=== PATIENT | male | born 1960 | race Caucasian/White ===

== ENCOUNTER → 2018-05-05 15:48 | Outpatient (CLI) | payer BC, SELFPAY ==
[2018-05-05 18:08] LABS: Prostate Specific Ag Screen 1.3 ng/mL (0.0-4.0)
== END ==
PROVIDERS: PCP Internal Medicine Adolescent Medicine; Visit Provider Urology
DX: Z12.5 Encounter for screening for malignant neoplasm of prostate (principal); N40.0 Benign prostatic hyperplasia without lower urinary tract symptoms
CPT/HCPCS: 36415; G0103

== ENCOUNTER → 2019-05-18 13:58 | Outpatient (CLI) | payer BC, SELFPAY ==
[2019-05-18 16:01] LABS: Prostate Specific Ag Screen 3.5 ng/mL (0.0-4.0)
== END ==
PROVIDERS: Visit Provider Urology
DX: Z12.5 Encounter for screening for malignant neoplasm of prostate (principal); N40.0 Benign prostatic hyperplasia without lower urinary tract symptoms
CPT/HCPCS: 36415; G0103

== ENCOUNTER → 2020-03-09 10:43 | Outpatient (CLI) | payer BC, SELFPAY ==
[2020-03-10 12:38] LABS: Covid-19 Nasal PCR Sendout Lex Positive
== END ==
PROVIDERS: Visit Provider Internal Medicine Adolescent Medicine
DX: U07.1 COVID-19 (principal)
CPT/HCPCS: U0004

== ENCOUNTER → 2020-05-15 16:06 | Outpatient (CLI) | payer BC, SELFPAY ==
[2020-05-15 17:59] LABS: Prostate Specific Ag Screen 1.5 ng/ml (0.0-4.0)
== END ==
PROVIDERS: Visit Provider Urology
DX: N40.0 Benign prostatic hyperplasia without lower urinary tract symptoms (principal)
CPT/HCPCS: 36415; G0103

== ENCOUNTER → 2021-05-22 10:11 | Outpatient (CLI) | payer BC, SELFPAY ==
[2021-05-22 11:44] LABS: Prostate Specific Ag, Diagnost 1.17 ng/ml (0.0-4.0)
== END ==
PROVIDERS: Visit Provider Urology
DX: N40.1 Benign prostatic hyperplasia with lower urinary tract symptoms (principal)
CPT/HCPCS: 36415; 84153

== ENCOUNTER → 2021-05-29 14:16 | Outpatient (POV) | payer BC, SELFPAY | PROVIDERS: Visit Provider Dermatology | DX: Z00.00 Encounter for general adult medical examination without abnormal findings (principal) ==

== ENCOUNTER 2022-10-30 19:26 | Emergency (ER) | payer BC, SELFPAY ==
[2022-10-30 19:27] VITALS: BP 135/87; PULSE 109; RESP 18; TEMP 37.8; O2SAT 97; BMI 24.7
[2022-10-30 19:34] VITALS: BMI 24.7
--- NOTE | 2022-10-30 19:36 | XR_ITS ---
PROCEDURE INFORMATION: Exam: XR Chest Exam date and time: 10/30/2022 7:46 PM Age: 62 years old Clinical indication: Cough TECHNIQUE: Imaging protocol: Radiologic exam of the chest. Views: 2 views. COMPARISON: CR CXR CHEST(2 VIEWS-NOT PORTABLE) 02/06/2017 5:23 AM FINDINGS: Lungs: Low lung volumes. No gross pulmonary infiltrates or edema pattern. Mild bandlike atelectasis in the lung bases is felt to be commensurate with the degree of pulmonary expansion. Question mild peribronchial thickening which may relate to bronchitis. Pleural spaces: No pleural effusion. No pneumothorax. Heart/Mediastinum: Heart size normal. No tracheal/mediastinal shift. Vasculature: Central vascular crowding related to expiratory technique. Bones/joints: No acute osseous abnormalities are identified. IMPRESSION: 1. Low lung volumes/expiratory technique with central vascular crowding and basilar atelectasis but no gross pulmonary infiltrates. 2. Question mild peribronchial thickening suggesting bronchitis.
[2022-10-30 19:47] LABS: Coronavirus 19, PCR Not Detected (NotDetected); Influenza A, PCR Not Detected (NotDetected); Influenza B, PCR Not Detected (NotDetected)
[2022-10-30 20:03] LABS: Basophils # 0.1 K/mm3 (0-0.2); Eosinophils % 0.2 % (0.1-12.0); Hematocrit 46.9 % (42.0-52.0); Hemoglobin 15.8 g/dL (14.1-18.0); Lymphocytes # 2.8 K/mm3 (0.7-4.5); Lymphocytes % 21.3 % (10-50); Mean Corpuscular HGB Conc 33.7 g/dL (31.8-35.4); Mean Corpuscular Hemoglobin 30.2 pg (27.0-31.2); Mean Corpuscular Volume 89.6 fl (80-94); Mean Platelet Volume 9.1 fl (7.4-10.4); Monocytes # 0.8 K/mm3 (0.1-1.0); Monocytes % 5.9 % (1.7-9.3); Neutrophils # 9.4 K/mm3 (1.8-7.8); Neutrophils % 71.6 % (37.0-80.0); Platelet Count 239 K/mm3 (142-424); Red Blood Count 5.24 M/mm3 (4.60-6.20); Red Cell Distribution Width 12.7 % (11.5-17.5); White Blood Count 13.2 K/mm3 (4.8-10.8)
--- NOTE | 2022-10-30 20:03 | HMH.EDGENADL ---
Discharge Plan Disposition Patient Disposition: Home, Self-Care Condition: Fair Prescriptions Prescriptions: New azithromycin [Zithromax Z-Rai] 250 mg tablet 250 mg PO DAILY 4 Days Qty: 4 0RF Rx Instructions: start on day 2 of therapy No Action buspirone 5 mg tablet 5 mg PO BID mirtazapine 15 mg tablet 15 mg PO DAILY sildenafil 50 MG tablet 50 mg PO NEEDED PRN (Reason: ED) Qty: 30 5RF Rx Instructions: 1 po 30 min prior to intercourse on an empty stomach. Referrals Follow up/Referrals: Antonio Blood MD [Primary Care Provider] - See instructions Clinical Impressions Clinical Impression: Pneumonia Instructions Patient Instructions: Pneumonia-Adult Print Language Print Language: [place]de[place] Discharge ED Provider: Amol Marcum General Adult HPI General Chief complaint: Upper Respiratory Infection Stated complaint: cough,chills, vomit Time Seen by Provider: 10/30/22 21:12 Mode of Arrival: Ambulatory Source of Information: Patient Limitations: No Limitations Description of Symptoms (Recalled from ER Triage Doc. by RN): 62 M present swith 1 week of flu like symptoms. He was seen by his PCP on Friday, prescribed cough medication, but is unable to keep this down because of his nausea and vomiting. Patient is hurting all over, and reports subjective fevers. History of Present Illness HPI narrative: Patient presents to the emergency department with cough, congestion, body aches, chills, sore throat and generalized malaise since Friday. The patient states that he has had significant cough and congestion. Denies any significant shortness of breath with ambulation. The patient denies any sick contacts. He was seen by his primary care physician on Friday and prescribed cough medicine but is having posttussive emesis. Does describe subjective fever. Related Data Home Medications Medication Instructions Recorded Confirmed buspirone 5 mg tablet 5 mg PO BID 05/05/18 05/22/21 mirtazapine 15 mg tablet 15 mg PO DAILY 05/05/18 05/22/21 Previous Rx's Medication Instructions Recorded sildenafil 50 mg tablet 50 mg PO NEEDED PRN ED #30 tabs 05/22/21 azithromycin 250 mg tablet 250 mg PO DAILY 4 days #4 tabs 10/30/22 (Zithromax Z-Rai) Allergies Allergy/AdvReac Type Severity Reaction Status Date / Time ciprofloxacin [From CIPRO] Allergy Mild Verified 05/22/21 09:26 prednisone [PREDNISONE] Allergy Mild Verified 05/22/21 09:26 sulfamethoxazole Allergy Unknown Verified 05/22/21 09:26 [From BACTRIM] trimethoprim [From BACTRIM] Allergy Unknown Verified 05/22/21 09:26 [facility] Disclaimer: The information contained in this section may have been updated after the patient was seen, as this information can be updated by other users. Social History Smoking Status: Never smoker alcohol intake: never substance use type: denies use current occupational status: employed Travel in the last 8 weeks: None ROS Obtained: Yes All systems reviewed & no additional complaints except as documented Constitutional Constitutional: Reports body ache, Reports chills and Reports fever(s) ENT Ears, Nose, Mouth, and Throat: Reports sore throat Respiratory Respiratory: Reports other (Cough, posttussive emesis) Physical Exam General General appearance: alert and in no apparent distress Comment: Slightly ill-appearing Head Head exam: atraumatic and normocephalic Eye Eye exam: Present normal appearance, PERRL and EOMI ENT ENT exam: Present normal exam Neck Neck exam: Present normal inspection and full ROM Chest Chest inspection: Present normal inspection and symmetric chest wall rise Respiratory Respiratory exam: Present other (Significant coarse diminished bilateral breath sounds. Right basilar rales. No wheezes or rhonchi noted.) Cardiovascular Cardiovascular exam: Present regular rate, normal rhythm
[2022-10-30 20:09] LABS: Chloride 99 mmol/L (98-107)
[2022-10-30 20:10] LABS: Potassium 3.6 mmoL/L (3.5-5.1); Sodium 136 mmol/L (136-145)
[2022-10-30 20:12] LABS: Blood Urea Nitrogen 19 mg/dl (9-20); Creatinine Clearance Estimated 87 mL/min (50-200); Estimated Glomerular Filt Rate 85 ml/min (>60); GFR (African American) 103 ML/MIN (>60)
[2022-10-30 20:13] LABS: Anion Gap 12.6 mEq/L (5-15); Calcium 8.3 mg/dl (8.4-10.2); Carbon Dioxide 28 mmol/L (22.0-30.0); Glucose 120 mg/dl (74-100)
--- NOTE | 2022-10-30 20:58 | PC.NURSE ---
patient offered blanket, refused states he doesn't need anything at this time
[2022-10-30 21:21] VITALS: BP 127/74; PULSE 73; RESP 17; TEMP 37.2; O2SAT 97
== END 2022-10-30 21:22 | disposition home or self-care (01) ==
PROVIDERS: Emergency Provider Emergency Medicine; PCP Internal Medicine Adolescent Medicine
DX: J18.9 Pneumonia, unspecified organism (principal)
CPT/HCPCS: 71046; 80048; 85025; 96361; 96374; 99284; 99285; C9803; J0131; J2405; U0003; U0005

== ENCOUNTER 2022-10-31 11:50 | Inpatient (IN) | payer BC, SELFPAY ==
[2022-10-31] VITALS (10 sets, daily range): BP systolic 121–165; BP diastolic 73–97; PULSE 75–100; RESP 15–21; TEMP 37.3–39.1; O2SAT 92–98; BMI 24.7; BMI 25.0
--- NOTE | 2022-10-31 11:49 | ECG_ITS ---
APPROVED REPORT Exam: Resting ECG HR:93 bpm ECG Measurements Heart Rate 93 AXES OK 154 P 42 QRSd 102 QRS -69 QT 378 T 64 QTc 429 Conclusion SINUS RHYTHM LEFT ANTERIOR FASCICULAR BLOCK [QRS AXIS <= -45, QR IN I, RS IN II] NONSPECIFIC T-WAVE ABNORMALITY ABNORMAL ECG UNCONFIRMED REPORT Electronically signed by : Antonio Blood MD 10/31/2022 16:42:33
--- NOTE | 2022-10-31 11:52 | HMH.EDGENADL ---
Discharge Plan Disposition Patient Disposition: Admitted As Inpatient Condition: Fair Prescriptions Prescriptions: No Action buspirone 5 mg tablet 5 mg PO BID mirtazapine 15 mg tablet 15 mg PO HS promethazine-DM 6.25-15 mg/5 mL syrup 5 ml PO Q6H Label Comments: TAKE 5 ML BY MOUTH EVERY 6 HOURS FOR 5 DAYS Referrals Follow up/Referrals: Antonio Blood MD [Primary Care Provider] - See instructions Clinical Impressions Clinical Impression: Abscess of sigmoid colon due to diverticulitis Discharge ED Provider: Rajat Martins General Adult HPI General Chief complaint: Chest Pain Stated complaint: chest pain Time Seen by Provider: 10/31/22 11:50 History of Present Illness HPI narrative: Patient states that he has been sick since around Friday. He has a productive cough, fever, chest and abdominal pain. He saw his primary care provider in the office on Friday and was started on cough medication. He was seen in the emergency department last night and says that he was diagnosed with pneumonia. Prescribed Zithromax. This morning he has developed much more severe chest pain in the sternal area and abdominal pain. Last took Tylenol 1 hour ago, 500 mg. Related Data Home Medications Medication Instructions Recorded Confirmed buspirone 5 mg tablet 5 mg PO BID Anxiety 05/05/18 10/31/22 mirtazapine 15 mg tablet 15 mg PO HS MOOD 05/05/18 10/31/22 promethazine-DM 6.25 mg-15 mg/5 mL 5 ml PO Q6H Cough/cold 10/31/22 10/31/22 oral syrup Allergies Allergy/AdvReac Type Severity Reaction Status Date / Time ciprofloxacin [From CIPRO] Allergy Mild Verified 05/22/21 09:26 prednisone [PREDNISONE] Allergy Mild Verified 05/22/21 09:26 sulfamethoxazole Allergy Unknown Verified 05/22/21 09:26 [From BACTRIM] trimethoprim [From BACTRIM] Allergy Unknown Verified 05/22/21 09:26 [facility] Disclaimer: The information contained in this section may have been updated after the patient was seen, as this information can be updated by other users. Social History Smoking Status: Unknown if ever smoked alcohol intake: never substance use type: denies use current occupational status: employed Travel in the last 8 weeks: None ROS Obtained: Yes Systems reviewed as appropriate & no additional complaints except as documented Constitutional Constitutional: Reports fever(s), Denies headache(s) and Denies weakness ENT Ears, Nose, Mouth, and Throat: Denies headache(s), Denies nasal discharge and Denies sore throat Cardiovascular Cardiovascular: Reports chest pain Respiratory Respiratory: Denies shortness of breath and Reports cough Gastrointestinal Gastrointestingal: Reports abdominal pain and vomiting; Denies constipation or diarrhea Genitourinary Male Genitourinary: Denies difficulty urinating and Denies flank pain Musculoskeletal Musculoskeletal: Denies numbness Neurologic Neurologic: Denies headache(s), Denies numbness and Denies weakness Physical Exam General General appearance: alert and in distress (Arrives bent over at the waist, moaning.) Head Head exam: atraumatic and normocephalic Eye Eye exam: Present normal appearance and EOMI ENT ENT exam: Present mucous membranes moist Neck Neck exam: Present normal inspection and trachea midline Chest Chest inspection: Present normal inspection and symmetric chest wall rise Respiratory Respiratory exam: Present normal lung sounds bilaterally; Absent respiratory distress Cardiovascular Cardiovascular exam: Present regular rate, normal rhythm and normal heart sounds Abdominal Exam Abdominal exam: Present tenderness, guarding and rigidity; Absent distention Abdominal tenderness: Present diffuse Extremities Exam Extremities exam: Present normal inspection Neurological Exam Neurological exam: Present alert and oriented X3 Psychiatric Psychiatric exam: Present normal affect and normal mood S
--- NOTE | 2022-10-31 11:53 | XR_ITS ---
FINAL REPORT TECHNIQUE: Single view chest CLINICAL HISTORY: cp, vomiting COMPARISON: 10/30/2022 FINDINGS: A single view of the chest was obtained. The heart and mediastinum are within normal limits. The lungs are mildly underinflated with chronic changes at the bases. Lungs are otherwise clear. There is no pneumothorax. Osseous structures are unremarkable. IMPRESSION: No acute cardiopulmonary process. Reviewed, Interpreted and Dictated by Dell Elkins MD Transcribed by Cheryl Escobedo Authenticated and [facility]
--- NOTE | 2022-10-31 12:01 | CT_ITS ---
FINAL REPORT TECHNIQUE: After the administration of intravenous contrast, axial images were obtained through the abdomen and pelvis by computed tomography. The study was performed with techniques to keep radiation dose as low as reasonably achievable, (ALARA). Individual dose reduction techniques using automated exposure control or adjustment of mA and/or kV according to the patient's size were employed. CLINICAL HISTORY: abdo pain FINDINGS: Abdomen: There is minimal atelectasis in the lung bases. The liver parenchyma is homogeneous. The gallbladder is not identified and probably surgically absent. The spleen, pancreas, adrenals and kidneys appear unremarkable. The aorta is normal in caliber. Pelvis: There is extensive inflammatory reaction throughout the proximal sigmoid colon. There is abnormal mucosal thickening. There is surrounding fluid. There appears to be a small extraluminal fluid collection present measuring approximately 2.0 x 1.5 cm. This may represent a small abscess. This is well seen on images 87-89 of series 3. There is a small amount of free fluid in the pelvis. IMPRESSION: 1. Extensive mucosal edema and surrounding inflammation in the proximal sigmoid colon which is consistent with segmental colitis or diverticulitis, favor the latter. 2. Small associated abscess measuring 2.0 x 1.5 cm. Reviewed, Interpreted and Dictated by Dell Elkins MD Transcribed by Rere White Authenticated and . [facility]
[2022-10-31 12:16] LABS: Basophils # 0.1 K/mm3 (0-0.2); Basophils % 0.6 % (0.1-2.0); Eosinophils % 0.1 % (0.1-12.0); Hematocrit 44.1 % (42.0-52.0); Lymphocytes # 3.4 K/mm3 (0.7-4.5); Lymphocytes % 24.4 % (10-50); Mean Corpuscular HGB Conc 33.9 g/dL (31.8-35.4); Mean Corpuscular Hemoglobin 30.8 pg (27.0-31.2); Mean Corpuscular Volume 91.1 fl (80-94); Mean Platelet Volume 8.9 fl (7.4-10.4); Monocytes # 0.7 K/mm3 (0.1-1.0); Monocytes % 5.3 % (1.7-9.3); Neutrophils # 9.8 K/mm3 (1.8-7.8); Neutrophils % 69.6 % (37.0-80.0); Platelet Count 271 K/mm3 (142-424); Red Blood Count 4.85 M/mm3 (4.60-6.20); Red Cell Distribution Width 12.7 % (11.5-17.5)
--- NOTE | 2022-10-31 12:17 | PC.NURSE ---
Phoned lab for rapid COVID/Flu order. Specimen sent to lab.
[2022-10-31 12:20] LABS: Coronavirus 19, PCR Not Detected (NotDetected); Influenza A, PCR Not Detected (NotDetected); Influenza B, PCR Not Detected (NotDetected)
[2022-10-31 12:23] LABS: Chloride 98 mmol/L (98-107); Potassium 3.3 mmoL/L (3.5-5.1); Sodium 134 mmol/L (136-145)
[2022-10-31 12:25] LABS: Blood Urea Nitrogen 19 mg/dl (9-20); Creatinine Clearance Estimated 79 mL/min (50-200); Estimated Glomerular Filt Rate 67 ml/min (>60); GFR (African American) 82 ML/MIN (>60); Lactic Acid 2.3 mmol/L (0.7-2.1)
[2022-10-31 12:26] LABS: Alanine Aminotransferase 25 U/L (12-78); Albumin/Globulin Ratio 1.3 (1.1-1.8); Alkaline Phosphatase 79 U/L (38-126); Anion Gap 11.3 mEq/L (5-15); Aspartate Amino Transferase 35 U/L (17-59); Carbon Dioxide 28 mmol/L (22.0-30.0); Glucose 133 mg/dl (74-100); Lipase 50 U/L (23-300)
[2022-10-31 12:46] LABS: Troponin I < 0.01 ng/ml (0.00-0.034)
--- NOTE | 2022-10-31 12:51 | PC.NURSE ---
Attempted to urinate; unsuccessful. Pt to CT.
--- NOTE | 2022-10-31 13:21 | PC.NURSE ---
Pt resting at this time. No further complaints.
--- NOTE | 2022-10-31 13:52 | PC.NURSE ---
Pt ambulated to bathroom attempting to urinate. Pt updated on plan of care; awaiting CT results.
--- NOTE | 2022-10-31 14:41 | PC.NURSE ---
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
--- NOTE | 2022-10-31 14:56 | HMH.PHAINT1 ---
Pharmacy Intervention Comments: MEDICATION RECONCILIATION COMPLETED ON PATIENT USING EXTERNAL FILL HISTORY FROM PHARMACY. -ROYAL EVERETT, JUMANAD
--- NOTE | 2022-10-31 15:46 | PC.NURSE ---
Report given to GULSHAN Urena.
--- NOTE | 2022-10-31 15:49 | PC.NURSE ---
+nausea. cool wash cloth provided. Pt updated on plan of care.
--- NOTE | 2022-10-31 16:02 | PC.NURSE ---
Patient leaving ED now
[2022-10-31 16:12] LABS: Reflex Lactic Add Lactic Reflex
[2022-10-31 16:32] LABS: Microscopic, Urine URINE MICROSCOPIC (MICROSCOPIC)
[2022-10-31 16:49] LABS: Appearance,Urine CLEAR (Clear); Bilirubin,Urine Negative (Negative); Blood, Urine 1+ (Negative); Color,Urine YELLOW (Yellow); Glucose,Urine (UA) Negative (Negative); Ketones,Urine 1+ (Negative); Leukocyte Esterase,Urine Negative (Negative); Nitrate,Urine Negative (Negative); PH,Urine 5.5 (5.0-8.5); Protein,Urine 1+ (Negative); Specific Gravity, Urine 1.015 (1.005-1.030)
--- NOTE | 2022-10-31 17:07 | PC.NURSE ---
PT A&O X4, LUNGS CTA. HYPOACTIVE BOWEL SOUNDS. ABD TENDER TO TOUCH, PT NOT CURRENTLY IN ANY PAIN OR HAVE C/O OF N/V. CLEAR LIQUID DIET, PT C/O COUGH FOR THE LAST 2 WEEKS AND N/V SINCE FRIDAY WHICH HAS BOTH MADE THE PTS THROAT SORE. NO SKIN ISSUES NOTED. PT HAS A LOW GRADE 99.0. CB WITHIN REACH, TOLERATING ICE WATER AT THIS TIME.
[2022-10-31 17:23] LABS: Triple Phosphate Crystal,Urine 3+ /lpf; Uric Acid Crystals,Urine 1+ /lpf
[2022-10-31 17:24] LABS: Squamous Epithelial Cell,Urine Occasional #/hpf (0-5); WBC,Urine Occasional #/hpf (0-3)
--- NOTE | 2022-10-31 17:38 | EXP.SURG.CON ---
History of Present Illness *Admission Date: 10/31/22 *Reason for visit:: Diverticulitis/colitis *History of present illness: This is a 62-year-old gentleman seen in consultation from the hospital service for evaluation regarding diverticulitis/colitis. He presented to the emergency department with significant cough and abdominal pain. Please see HPI forwarded below from emergency department. Forwarded from emergency department evaluation: General Adult HPI General Chief complaint: Chest Pain Stated complaint: chest pain Time Seen by Provider: 10/31/22 11:50 History of Present Illness HPI narrative: Patient states that he has been sick since around Friday.? He has a productive cough, fever, chest and abdominal pain.? He saw his primary care provider in the office on Friday and was started on cough medication.? He was seen in the emergency department last night and says that he was diagnosed with pneumonia.? Prescribed Zithromax.? This morning he has developed much more severe chest pain in the sternal area and abdominal pain.? Last took Tylenol 1 hour ago, 500 mg. PFSH PFSH Disclaimer: The information contained in this section may have been updated after the patient was seen, as this information can be updated by other users. Medical History (Updated 10/31/22 @ 17:48 by Josue Tee MD) Cataract Surgical History H/O knee surgery History of cholecystectomy History of hernia surgery Previous back surgery Family History (Updated 10/31/22 @ 16:41 by Mary Bartlett RN) Family history of cancer Social History (Updated 10/31/22 @ 16:42 by Mary Bartlett RN) Smoking Status: Never smoker alcohol intake: never substance use type: denies use current occupational status: employed Travel in the last 8 weeks: None Review of Systems Constitutional Constitutional: Denies headache(s) and Denies weakness ENT Ears, Nose, Mouth, and Throat: Denies headache(s) *Musculoskeletal Musculoskeletal: Denies numbness *Neurologic Neurologic: Denies headache(s), Denies numbness and Denies weakness Meds Home Medications and Allergies Home Medications Medication Instructions Recorded Confirmed Type buspirone 5 mg tablet 2.5 mg PO DAILY Anxiety 05/05/18 10/31/22 History mirtazapine 15 mg tablet 15 mg PO HS MOOD 05/05/18 10/31/22 History promethazine-DM 6.25 mg-15 mg/5 mL 5 ml PO Q6H Cough/cold 10/31/22 10/31/22 History oral syrup New Prescriptions to Start Prescriptions: Allergies Allergy/AdvReac Type Severity Reaction Status Date / Time ciprofloxacin [From CIPRO] Allergy Mild Verified 05/22/21 09:26 prednisone [PREDNISONE] Allergy Mild Verified 05/22/21 09:26 sulfamethoxazole Allergy Unknown Verified 05/22/21 09:26 [From BACTRIM] trimethoprim [From BACTRIM] Allergy Unknown Verified 05/22/21 09:26 Exam (Inpt) Vital signs and Labs for Last 24 Hours: Temp Pulse Resp BP Pulse Ox 99.6 F 95 H 18 165/88 H 95 10/31/22 16:11 10/31/22 16:11 10/31/22 16:11 10/31/22 16:11 10/31/22 16:11 Laboratory Results - last 24 hr 10/31/22 11:55: WBC 14.0 H, RBC 4.85, Hgb 15.0, Hct 44.1, MCV 91.1, MCH 30.8, MCHC 33.9, RDW 12.7, Plt Count 271, MPV 8.9, Neut % (Auto) 69.6, Lymph % (Auto) 24.4, [place] % (Auto) 5.3, Eos % (Auto) 0.1, Baso % (Auto) 0.6, Neut # (Auto) 9.8 H, Lymph # (Auto) 3.4, [place] # (Auto) 0.7, Eos # (Auto) 0.0, Baso # (Auto) 0.1 10/31/22 11:55: Sodium 134 L, Potassium 3.3 L, Chloride 98, Carbon Dioxide 28, Anion Gap 11.3, BUN 19, Creatinine 1.10 D, Estimated Creat Clear 79, Estimated GFR 67, Est GFR ( Amer) 82 D, Glucose 133 H, Calcium 8.0 L, Total Bilirubin 1.0, AST 35, ALT 25, Alkaline Phosphatase 79, Troponin I < 0.01, Total Protein 7.0, Albumin 4.0, Globulin 3.0, Albumin/Globulin Ratio 1.3, Lipase 50 10/31/22 11:55: Lactate 2.3 H 03
--- NOTE | 2022-10-31 18:01 | PC.NURSE ---
TEMP NOW 100.8. CALLED FOR AN ORDER OF TYLENOL.
--- NOTE | 2022-10-31 18:04 | EXP.HP ---
History of Present Illness *Admission Date: 10/31/22 *History of present illness: This is a 62-year-old gentleman who presented to the ER today for worsening abdominal pain. States that he became sick this past weekend with a cough and fever. Had some chest and abdominal pain. Was seen by his PCP earlier this week where he was diagnosed with bronchitis. Started on some cough medicine. Symptoms not improving, seen in the ER yesterday diagnosed with pneumonia. Started on azithromycin. Symptoms progressed overnight with worsening abdominal pain and nausea this morning. Pain worse in the left lower abdomen but also present in right lower abdomen. On presentation to the ER, CT of abdomen concerning for diverticulitis. Patient had an elevated white count at and tachycardia. Meeting sepsis criteria. Medicine consulted for admission. While in the ER, surgery consulted for further evaluation given concern for possible abscess on CT of abdomen After arriving to the floor, patient complains mainly of abdominal pain. Still feels quite weak. Denies any vahid emesis, fever, headache, chest pain at this time. Denies diarrhea. [facility] Disclaimer: The information contained in this section may have been updated after the patient was seen, as this information can be updated by other users. Medical History Cataract Surgical History H/O knee surgery History of cholecystectomy History of hernia surgery Previous back surgery Family History Family history of cancer Social History Smoking Status: Never smoker alcohol intake: never substance use type: denies use current occupational status: employed Travel in the last 8 weeks: None Review of Systems Review of Systems Review of systems (narrative): 14 point review of systems performed, pertinent positives and negatives as per HPI Constitutional Constitutional: Denies headache(s) and Denies weakness ENT Ears, Nose, Mouth, and Throat: Denies headache(s) *Musculoskeletal Musculoskeletal: Denies numbness *Neurologic Neurologic: Denies headache(s), Denies numbness and Denies weakness Meds Home Medications and Allergies Home Medications Medication Instructions Recorded Confirmed Type buspirone 5 mg tablet 2.5 mg PO DAILY Anxiety 05/05/18 10/31/22 History mirtazapine 15 mg tablet 15 mg PO HS MOOD 05/05/18 10/31/22 History promethazine-DM 6.25 mg-15 mg/5 mL 5 ml PO Q6H Cough/cold 10/31/22 10/31/22 History oral syrup New Prescriptions to Start Prescriptions: Allergies Allergy/AdvReac Type Severity Reaction Status Date / Time ciprofloxacin [From CIPRO] Allergy Mild Verified 05/22/21 09:26 prednisone [PREDNISONE] Allergy Mild Verified 05/22/21 09:26 sulfamethoxazole Allergy Unknown Verified 05/22/21 09:26 [From BACTRIM] trimethoprim [From BACTRIM] Allergy Unknown Verified 05/22/21 09:26 Exam Data for Last 24 hours Vital signs and Labs for Last 24 Hours: Temp Pulse Resp BP Pulse Ox 99.6 F 95 H 18 165/88 H 95 10/31/22 16:11 10/31/22 16:11 10/31/22 16:11 10/31/22 16:11 10/31/22 16:11 Laboratory Results - last 24 hr 10/31/22 11:55: WBC 14.0 H, RBC 4.85, Hgb 15.0, Hct 44.1, MCV 91.1, MCH 30.8, MCHC 33.9, RDW 12.7, Plt Count 271, MPV 8.9, Neut % (Auto) 69.6, Lymph % (Auto) 24.4, [place] % (Auto) 5.3, Eos % (Auto) 0.1, Baso % (Auto) 0.6, Neut # (Auto) 9.8 H, Lymph # (Auto) 3.4, [place] # (Auto) 0.7, Eos # (Auto) 0.0, Baso # (Auto) 0.1 10/31/22 11:55: Sodium 134 L, Potassium 3.3 L, Chloride 98, Carbon Dioxide 28, Anion Gap 11.3, BUN 19, Creatinine 1.10 D, Estimated Creat Clear 79, Estimated GFR 67, Est GFR ( Amer) 82 D, Glucose 133 H, Calcium 8.0 L, Total Bilirubin 1.0, AST 35, ALT 25, Alkaline Phosphatase 79, Troponin I < 0.01, Total Protei
[2022-10-31 18:12] LABS: Lactic Acid Follow Up (RFLX 1) 1.5 mmol/L (0.7-2.1)
[2022-11-01] VITALS (8 sets, daily range): BP systolic 121–147; BP diastolic 57–79; PULSE 54–95; RESP 16–22; TEMP 36.8–37.8; O2SAT 93–96; BMI 25.0
--- NOTE | 2022-11-01 04:00 | PC.NURSE ---
The patient is admitted with a diagnosis of diverticulitis. He had multiple loose bowel movements last night. He was also spiking fevers up to 100.8F earlier in the evening. The plan is to follow morning labs and if worse, discuss with surgery for possible intervention or drainage of the abscess.
[2022-11-01 06:13] LABS: Basophils # 0.1 K/mm3 (0-0.2); Basophils % 0.3 % (0.1-2.0); Eosinophils # 0.1 K/mm3 (0.0-0.4); Eosinophils % 0.3 % (0.1-12.0); Hematocrit 39.1 % (42.0-52.0); Lymphocytes # 1.9 K/mm3 (0.7-4.5); Lymphocytes % 10.1 % (10-50); Mean Corpuscular HGB Conc 33.6 g/dL (31.8-35.4); Mean Corpuscular Volume 89.2 fl (80-94); Mean Platelet Volume 8.9 fl (7.4-10.4); Monocytes # 0.6 K/mm3 (0.1-1.0); Monocytes % 3.2 % (1.7-9.3); Neutrophils # 16.4 K/mm3 (1.8-7.8); Neutrophils % 86.2 % (37.0-80.0); Platelet Count 206 K/mm3 (142-424); Red Blood Count 4.38 M/mm3 (4.60-6.20); Red Cell Distribution Width 12.7 % (11.5-17.5)
[2022-11-01 06:15] LABS: MANUAL DIFFERENTIAL MANUAL DIFFERENTIAL (MANUAL DIFF)
[2022-11-01 06:17] LABS: Alanine Aminotransferase 26 U/L (12-78); Albumin Level 3.4 g/dl (3.5-5.0); Albumin/Globulin Ratio 1.3 (1.1-1.8); Alkaline Phosphatase 67 U/L (38-126); Anion Gap 12.3 mEq/L (5-15); Aspartate Amino Transferase 29 U/L (17-59); Bilirubin,Total 1.4 mg/dl (0.2-1.3); Blood Urea Nitrogen 21 mg/dl (9-20); Calcium 7.9 mg/dl (8.4-10.2); Carbon Dioxide 25 mmol/L (22.0-30.0); Chloride 99 mmol/L (98-107); Creatinine Clearance Estimated 89 mL/min (50-200); Estimated Glomerular Filt Rate 75 ml/min (>60); GFR (African American) 91 ML/MIN (>60); Globulin 2.7 g/dL (1.3-3.2); Glucose 122 mg/dl (74-100); Hemoglobin 13.3 g/dL (14.1-18.0); Magnesium 1.8 mg/dl (1.6-2.3); Potassium 3.3 mmoL/L (3.5-5.1); Sodium 133 mmol/L (136-145); Total Protein,Serum 6.1 g/dl (6.3-8.2)
[2022-11-01 07:29] LABS: Lymphocytes % 12 % (10-50); Monocytes % 4 % (2-9); Neutrophils % 82 % (42-76); Total Cells Counted 100
[2022-11-01 07:30] LABS: Platelet Estimate Normal; RBC Morphology Normal
--- NOTE | 2022-11-01 08:22 | EXP.SURG.PN ---
Subjective Patient reports: no new complaints and bowel movement Narrative: The patient reports that his cough is about the same . He continues to have abdominal pain but claims that it is just a little bit better . He has had multiple bowel movements. Exam Data for Last 24 hours Vital signs and Labs for Last 24 Hours: Temp Pulse Resp BP Pulse Ox 100.1 F H 86 18 129/70 93 L 11/01/22 04:00 11/01/22 04:00 11/01/22 04:00 11/01/22 04:00 11/01/22 04:00 Laboratory Results - last 24 hr 10/31/22 11:55: WBC 14.0 H, RBC 4.85, Hgb 15.0, Hct 44.1, MCV 91.1, MCH 30.8, MCHC 33.9, RDW 12.7, Plt Count 271, MPV 8.9, Neut % (Auto) 69.6, Lymph % (Auto) 24.4, [place] % (Auto) 5.3, Eos % (Auto) 0.1, Baso % (Auto) 0.6, Neut # (Auto) 9.8 H, Lymph # (Auto) 3.4, [place] # (Auto) 0.7, Eos # (Auto) 0.0, Baso # (Auto) 0.1 10/31/22 11:55: Sodium 134 L, Potassium 3.3 L, Chloride 98, Carbon Dioxide 28, Anion Gap 11.3, BUN 19, Creatinine 1.10 D, Estimated Creat Clear 79, Estimated GFR 67, Est GFR ( Amer) 82 D, Glucose 133 H, Calcium 8.0 L, Total Bilirubin 1.0, AST 35, ALT 25, Alkaline Phosphatase 79, Troponin I < 0.01, Total Protein 7.0, Albumin 4.0, Globulin 3.0, Albumin/Globulin Ratio 1.3, Lipase 50 10/31/22 11:55: Lactate 2.3 H 10/31/22 11:55: SARS-CoV-2 (PCR) Not detected, Influenza A Untype (PCR) Not detected, Influenza Type B (PCR) Not detected 10/31/22 15:57: Urine Color Yellow, Urine Appearance Clear, Urine pH 5.5, Ur Specific [place] 1.015, Urine Protein 1+, Urine Glucose (UA) Negative, Urine Ketones 1+, Urine Blood 1+, Urine Nitrate Negative, Urine Bilirubin Negative, Urine Urobilinogen 1.0, Ur Leukocyte Esterase Negative, Urine RBC 3-5, Urine WBC Occasional, Ur Squamous Epith Cells Occasional, Uric Acid Crystals 1+, Triple Phos Crystals 3+, Urine Bacteria None 10/31/22 17:37: Lactate 1.5 11/01/22 06:00: WBC 19.0 H D, RBC 4.38 L, Hgb 13.3 L D, Hct 39.1 L, MCV 89.2, MCH 30.0, MCHC 33.6, RDW 12.7, Plt Count 206, MPV 8.9, Neut % (Auto) 86.2 H, Lymph % (Auto) 10.1, [place] % (Auto) 3.2, Eos % (Auto) 0.3, Baso % (Auto) 0.3, Neut # (Auto) 16.4 H, Lymph # (Auto) 1.9, [place] # (Auto) 0.6, Eos # (Auto) 0.1, Baso # (Auto) 0.1, Total Counted 100, Neutrophils % (Manual) 82 H, Lymphocytes % (Manual) 12, Atypical Lymphs % 2.0, Monocytes % (Manual) 4, Platelet Estimate Normal, RBC Morphology Normal 11/01/22 06:00: Sodium 133 L, Potassium 3.3 L, Chloride 99, Carbon Dioxide 25, Anion Gap 12.3, BUN 21 H, Creatinine 1.00, Estimated Creat Clear 89, Estimated GFR 75, Est GFR ( Amer) 91, Glucose 122 H, Calcium 7.9 L, Magnesium 1.8, Total Bilirubin 1.4 H, AST 29, ALT 26, Alkaline Phosphatase 67, Total Protein 6.1 L, Albumin 3.4 L D, Globulin 2.7, Albumin/Globulin Ratio 1.3 I & O for Last 24 hours: Intake & Output 10/29/22 10/30/22 10/31/22 11/01/22 11:59 11:59 11:59 11:59 Intake Total 0 / 0 Output Total 0 / 0 Balance 0 / 0 Weight 182 lb 185 lb 1.6 oz Constitutional Constitutional: no acute distress *Routine Respiratory Exam Respiratory: Absent respiratory distress Comments: Persistent cough noted *Routine Cardiovascular Exam Cardiovascular: Absent tachycardia *Routine Abdominal Exam Abdominal: Present tenderness; Absent distended Comments: Slightly less firm and slightly less tender versus prior exam. Progress Note: A&P Assessment and plan (1) Abscess of sigmoid colon due to diverticulitis: Problem details: Developing diverticulitis with small/early abscess versus atypical colitis. Status: Acute Assessment and plan: Slight improvement in terms of the pain/tenderness over the past 12 hours. Continue Zosyn for now Continues serial abdominal exams Additional management (repeat CT scan, need for surgical intervention, need for drainage, etc.) pending response to current therapy (2) Sepsis: Status: Acute
--- NOTE | 2022-11-01 12:32 | DIET.NUTRFU ---
upon admit, patient indicated he was having trouble swallowing secondary to the sore throat. He tolerates a regular diet at home with no issues. Currently tolerating full liquids will follow GI recommendations for diet upgrades.
--- NOTE | 2022-11-01 16:18 | EXP.ACUTE.PN ---
Subjective *Date: 11/01/22 *Time: 16:18 Interval history: Pain improving Medical Exam Vital signs and Labs for Last 24 Hours: Vital Signs Temp Pulse Pulse Resp BP Pulse Ox 11/01/22 16:00 87 11/01/22 12:00 95 H 11/01/22 12:00 98.3 F 54 L 22 130/58 L 95 11/01/22 11:18 77 18 11/01/22 08:00 98.3 F 88 22 147/74 H 95 11/01/22 08:00 90 11/01/22 04:00 85 11/01/22 04:00 100.1 F H 86 18 129/70 93 L 11/01/22 00:00 75 10/31/22 20:00 75 10/31/22 20:00 94 L 11/01/22 00:00 99.3 F 80 16 147/68 H 96 10/31/22 20:00 100.5 F H 88 18 121/83 94 L Intake and Output 11/01/22 11/01/22 11/01/22 07:59 15:59 23:59 Intake Total 360 / 360 Output Total 0 / 0 0 / 0 Balance 0 / 360 360 / 360 Intake: Intake, Oral Amount 360 / 360 Output: Output, Urine Amount 0 / 0 0 / 0 Other: Number of Unmeasured Voids 1 1 Number of Bowel Movements 1 Weight 83.96 kg Patient Weight 11/01/22 23:59 Weight 83.96 kg Laboratory Results - last 24 hr 10/31/22 15:57: Urine Color Yellow, Urine Appearance Clear, Urine pH 5.5, Ur Specific [place] 1.015, Urine Protein 1+, Urine Glucose (UA) Negative, Urine Ketones 1+, Urine Blood 1+, Urine Nitrate Negative, Urine Bilirubin Negative, Urine Urobilinogen 1.0, Ur Leukocyte Esterase Negative, Urine RBC 3-5, Urine WBC Occasional, Ur Squamous Epith Cells Occasional, Uric Acid Crystals 1+, Triple Phos Crystals 3+, Urine Bacteria None 10/31/22 17:37: Lactate 1.5 11/01/22 06:00: WBC 19.0 H D, RBC 4.38 L, Hgb 13.3 L D, Hct 39.1 L, MCV 89.2, MCH 30.0, MCHC 33.6, RDW 12.7, Plt Count 206, MPV 8.9, Neut % (Auto) 86.2 H, Lymph % (Auto) 10.1, [place] % (Auto) 3.2, Eos % (Auto) 0.3, Baso % (Auto) 0.3, Neut # (Auto) 16.4 H, Lymph # (Auto) 1.9, [place] # (Auto) 0.6, Eos # (Auto) 0.1, Baso # (Auto) 0.1, Total Counted 100, Neutrophils % (Manual) 82 H, Lymphocytes % (Manual) 12, Atypical Lymphs % 2.0, Monocytes % (Manual) 4, Platelet Estimate Normal, RBC Morphology Normal 11/01/22 06:00: Sodium 133 L, Potassium 3.3 L, Chloride 99, Carbon Dioxide 25, Anion Gap 12.3, BUN 21 H, Creatinine 1.00, Estimated Creat Clear 89, Estimated GFR 75, Est GFR ( Amer) 91, Glucose 122 H, Calcium 7.9 L, Magnesium 1.8, Total Bilirubin 1.4 H, AST 29, ALT 26, Alkaline Phosphatase 67, Total Protein 6.1 L, Albumin 3.4 L D, Globulin 2.7, Albumin/Globulin Ratio 1.3 I & O for Labs for Last 24 Hours: Intake & Output 10/29/22 10/30/22 10/31/22 11/01/22 23:59 23:59 23:59 23:59 Intake Total 0 / 0 360 / 360 Output Total 0 / 0 Balance 0 / 0 360 / 360 Weight 83.688 kg 83.96 kg Constitutional: Present no acute distress Respiratory: Present normal respiratory effort Cardiac: Present Reg Rate and Rhythm GI: Present distention and tenderness; Absent normal bowel sounds Extremities: Present normal inspection and full ROM Skin: Present intact; Absent erythema Neuro: Present Grossly Intact and moves all extremities Assessment and Plan *Assessment and plan (1) Sepsis: Status: Acute Qualifiers: Sepsis type: sepsis due to unspecified organism Sepsis acute organ dysfunction status: without acute organ dysfunction Qualified Code(s): A41.9 - Sepsis, unspecified organism Category: Medical Code(s): A41.9 - Sepsis, unspecified organism (2) Abscess of sigmoid colon due to diverticulitis: Problem Comment: Developing diverticulitis with small/early abscess versus atypical colitis. Status: Acute Category: Medical Code(s): K57.20 - Diverticulitis of large intestine with perforation and abscess without bleeding (3) Mood disorder: Status: Chronic Category: Medical Code(s): F39 - Unspecified mood [affective] disorder Plan 62-year-old male who presented with abdominal pain, found to have diverticulitis with questionable abscess formation.? Medicine consulted for admission, joe m
--- NOTE | 2022-11-01 17:56 | PC.NURSE ---
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 No distention noted, bowel sounds active, pt having bowel movements. VS stable and pt on room air. Coughing noted during shift and patient has dry-heaved but no emesis noted. Tolerating full liquid diet. Pain noted mainly from patient coughing, pain medications administered.
[2022-11-02] VITALS (20 sets, daily range): BP systolic 111–142; BP diastolic 56–78; PULSE 53–125; RESP 9–18; TEMP 36.6–43; O2SAT 92–97; BMI 25.2
--- NOTE | 2022-11-02 04:00 | PC.NURSE ---
The patient spent the majority of the night asleep compared to the previous night. He reports an improvement in his symptoms including reduced pain and tenderness in his lower abdomen. He is still receiving IV Zosyn as the antibiotic of choice and he has not reported any concerns overnight. He is still on room air and is able to ambulate independently within the room and to the bathroom.
[2022-11-02 07:40] LABS: Basophils % 0.3 % (0.1-2.0); Eosinophils % 0.3 % (0.1-12.0); Hematocrit 32.3 % (42.0-52.0); Hemoglobin 11.4 g/dL (14.1-18.0); Lymphocytes # 1.6 K/mm3 (0.7-4.5); Lymphocytes % 14.4 % (10-50); Mean Corpuscular HGB Conc 35.3 g/dL (31.8-35.4); Mean Corpuscular Volume 87.8 fl (80-94); Monocytes # 0.4 K/mm3 (0.1-1.0); Monocytes % 3.9 % (1.7-9.3); Neutrophils # 9.2 K/mm3 (1.8-7.8); Neutrophils % 81.1 % (37.0-80.0); Platelet Count 198 K/mm3 (142-424); Red Blood Count 3.68 M/mm3 (4.60-6.20); Red Cell Distribution Width 12.8 % (11.5-17.5); White Blood Count 11.3 K/mm3 (4.8-10.8)
[2022-11-02 07:52] LABS: Alanine Aminotransferase 15 U/L (12-78); Albumin Level 2.9 g/dl (3.5-5.0); Albumin/Globulin Ratio 1.1 (1.1-1.8); Alkaline Phosphatase 50 U/L (38-126); Anion Gap 7.1 mEq/L (5-15); Aspartate Amino Transferase 25 U/L (17-59); Blood Urea Nitrogen 29 mg/dl (9-20); Calcium 7.9 mg/dl (8.4-10.2); Carbon Dioxide 28 mmol/L (22.0-30.0); Chloride 102 mmol/L (98-107); Creatinine Clearance Estimated 89 mL/min (50-200); Estimated Glomerular Filt Rate 75 ml/min (>60); GFR (African American) 91 ML/MIN (>60); Globulin 2.6 g/dL (1.3-3.2); Glucose 86 mg/dl (74-100); Potassium 3.1 mmoL/L (3.5-5.1); Sodium 134 mmol/L (136-145); Total Protein,Serum 5.5 g/dl (6.3-8.2)
--- NOTE | 2022-11-02 09:53 | EXP.SURG.PN ---
Subjective Narrative: Patient states that he does feel better. Less abdominal pain/soreness. Exam Data for Last 24 hours Vital signs and Labs for Last 24 Hours: Temp Pulse Resp BP Pulse Ox 98.2 F 85 18 121/56 L 94 L 11/02/22 08:00 11/02/22 08:00 11/02/22 08:00 11/02/22 08:00 11/02/22 08:00 Laboratory Results - last 24 hr 11/02/22 07:15: WBC 11.3 H D, RBC 3.68 L, Hgb 11.4 L, Hct 32.3 L, MCV 87.8, MCH 31.0, MCHC 35.3, RDW 12.8, Plt Count 198, MPV 9.0, Neut % (Auto) 81.1 H, Lymph % (Auto) 14.4, [place] % (Auto) 3.9, Eos % (Auto) 0.3, Baso % (Auto) 0.3, Neut # (Auto) 9.2 H, Lymph # (Auto) 1.6, [place] # (Auto) 0.4, Eos # (Auto) 0.0, Baso # (Auto) 0.0 11/02/22 07:15: Sodium 134 L, Potassium 3.1 L, Chloride 102, Carbon Dioxide 28, Anion Gap 7.1, BUN 29 H D, Creatinine 1.00, Estimated Creat Clear 89, Estimated GFR 75, Est GFR ( Amer) 91, Glucose 86, Calcium 7.9 L, Total Bilirubin 1.0, AST 25, ALT 15 D, Alkaline Phosphatase 50, Total Protein 5.5 L, Albumin 2.9 L D, Globulin 2.6, Albumin/Globulin Ratio 1.1 I & O for Last 24 hours: Intake & Output 10/30/22 10/31/22 11/01/22 11/02/22 11:59 11:59 11:59 11:59 Intake Total 0 / 0 3124 / 3124 Output Total 0 / 0 200 / 200 Balance 0 / 0 2924 / 2924 Weight 182 lb 185 lb 1.6 oz 186 lb 1 oz Microbiology Reports for the Last 24 Hours: Microbiology 11/01/22 11:51 Sputum - Expectorated Sputum Gram Stain - Final *Routine Abdominal Exam Comments: Some voluntary guarding. No rebound. Progress Note: A&P Assessment and plan (1) Sepsis: Status: Acute (2) Abscess of sigmoid colon due to diverticulitis: Problem details: Developing diverticulitis with small/early abscess versus atypical colitis. Status: Acute Assessment and plan: Continue antibiotics at this time. Continue nonoperative management. He has shown improvement with normalization of temperature profile and marked improvement in leukocytosis (3) Mood disorder: Status: Chronic
--- NOTE | 2022-11-02 12:32 | CT_ITS ---
PROCEDURE INFORMATION: Exam: CT Abdomen And Pelvis Without Contrast Exam date and time: 11/02/2022 1:47 PM Age: 62 years old Clinical indication: Abdominal pain; Generalized; Additional info: Acute abdomen concern for perf TECHNIQUE: Imaging protocol: Computed tomography of the abdomen and pelvis without contrast. Radiation optimization: All CT scans at this facility use at least one of these dose optimization techniques: automated exposure control; mA and/or kV adjustment per patient size (includes targeted exams where dose is matched to clinical indication); or iterative reconstruction. REPORTING DATA: Count of CT and Cardiac NM exams in prior 12 months: This patient has received [address] and 0 known cardiac nuclear medicine studies in the 12 months prior to the current study. COMPARISON: CT ABDOMEN PELVIS W CON 10/31/2022 12:55 PM FINDINGS: Diaphragm: Small hiatal hernia. Liver: Hepatic steatosis. Gallbladder and bile ducts: Post cholecystectomy. Pancreas: Fatty atrophy of the pancreas. Spleen: Normal. No splenomegaly. Adrenal glands: Normal. No mass. Kidneys and ureters: Normal. No hydronephrosis. Stomach and bowel: No bowel obstruction. Appendix: No evidence of appendicitis. Intraperitoneal space: Moderate pneumoperitoneum. Small volume free fluid within the pelvis. Vasculature: Unremarkable. No abdominal aortic aneurysm. Lymph nodes: Unremarkable. No enlarged lymph nodes. Urinary bladder: Unremarkable as visualized. Reproductive: Unremarkable as visualized. Bones/joints: Unremarkable. No acute fracture. Soft tissues: Unremarkable. IMPRESSION: 1. Fatty atrophy of the pancreas. Impression. Colonic diverticulosis is extensive inflammatory stranding and bowel wall thickening in the sigmoid colon, with multiple foci of gas extending around the sigmoid colon, highly suspicious for the source of bowel perforation. 2. Moderate pneumoperitoneum. 3. Hepatic steatosis. 4. Small volume free fluid within the pelvis. 5. Fatty atrophy of the pancreas. Colonic diverticulosis is extensive inflammatory stranding and bowel wall thickening in the sigmoid colon, with multiple foci of gas extending around the sigmoid colon, highly suspicious for the source of bowel perforation.
--- NOTE | 2022-11-02 12:58 | PC.NURSE ---
Addendum entered by Mere Brown RN 11/02/22 13:02: Event happened 1223 Original Note: Patient complained of increased pain and began to involuntarily shake all extremities. Bowel sounds hypoactive and abdomen firm but no distention. No fever noted and VS stable. Dr. Nicolas Zayas notified and came to bedside to evaluate
--- NOTE | 2022-11-02 13:17 | EXP.ACUTE.PN ---
Subjective *Date: 11/02/22 *Time: 13:17 Interval history: Saw patient around 11 AM and he was doing well, sitting at the bedside, minimal pain. Was called to reassess the patient around 1 PM due to severe tremors and pain. Medical Exam Vital signs and Labs for Last 24 Hours: Vital Signs Temp Pulse Pulse Resp BP Pulse Ox 11/02/22 11:51 97.9 F 64 18 119/68 97 11/02/22 08:00 98.2 F 85 18 121/56 L 94 L 11/02/22 04:00 70 11/02/22 04:00 98.2 F 72 18 128/63 94 L 11/02/22 00:00 90 11/02/22 00:00 98.1 F 73 18 111/59 L 95 11/01/22 20:00 70 11/01/22 19:57 99.4 F 77 20 129/79 95 11/01/22 16:00 98.3 F 86 20 121/57 L 94 L 11/01/22 16:00 87 Intake and Output 11/01/22 11/02/22 11/02/22 23:59 07:59 15:59 Intake Total 2689 / 3049 75 / 75 Output Total 0 / 400 400 / 400 Balance 2689 / 3049 0 / -325 -325 / -325 Intake: Intake, Oral Amount 360 / 720 75 / 75 Intake, Total IV Amount 2329 / 2329 Lactated Ringers 1000ML 1,000 2129 / 2129 ml @ 100 mls/hr IV .Q10H ELISABETH Rx #:[id number] Piperacillin/Tazo 4.5 gm In 0.9 200 / 200 % Sodium Chloride 100 ml @ 200 mls/hr IV Q6H ELISABETH Rx#:[id number] Output: Output, Urine Amount 0 / 400 400 / 400 Other: Number of Unmeasured Voids 1 1 Number of Bowel Movements 1 1 Weight 84.397 kg Patient Weight 11/02/22 23:59 Weight 84.397 kg Laboratory Results - last 24 hr 11/02/22 07:15: WBC 11.3 H D, RBC 3.68 L, Hgb 11.4 L, Hct 32.3 L, MCV 87.8, MCH 31.0, MCHC 35.3, RDW 12.8, Plt Count 198, MPV 9.0, Neut % (Auto) 81.1 H, Lymph % (Auto) 14.4, [place] % (Auto) 3.9, Eos % (Auto) 0.3, Baso % (Auto) 0.3, Neut # (Auto) 9.2 H, Lymph # (Auto) 1.6, [place] # (Auto) 0.4, Eos # (Auto) 0.0, Baso # (Auto) 0.0 11/02/22 07:15: Sodium 134 L, Potassium 3.1 L, Chloride 102, Carbon Dioxide 28, Anion Gap 7.1, BUN 29 H D, Creatinine 1.00, Estimated Creat Clear 89, Estimated GFR 75, Est GFR ( Amer) 91, Glucose 86, Calcium 7.9 L, Total Bilirubin 1.0, AST 25, ALT 15 D, Alkaline Phosphatase 50, Total Protein 5.5 L, Albumin 2.9 L D, Globulin 2.6, Albumin/Globulin Ratio 1.1 I & O for Labs for Last 24 Hours: Intake & Output 10/30/22 10/31/22 11/01/22 11/02/22 23:59 23:59 23:59 23:59 Intake Total 0 / 0 3049 / 3049 75 / 75 Output Total 0 / 0 400 / 400 Balance 0 / 0 3049 / 3049 -325 / -325 Weight 83.688 kg 83.96 kg 84.397 kg Microbiology Reports for the Last 24 Hours: Microbiology 10/31/22 12:03 Blood Blood Culture - Preliminary NO GROWTH AFTER 48 HOURS 10/31/22 12:03 Blood Blood Culture - Preliminary NO GROWTH AFTER 48 HOURS 11/01/22 11:51 Sputum - Expectorated Sputum Gram Stain - Final Constitutional: Present moderate distress Respiratory: Present normal respiratory effort Cardiac: Present Reg Rate and Rhythm GI: Present distention and tenderness; Absent normal bowel sounds Extremities: Present normal inspection and full ROM Skin: Present intact; Absent erythema Neuro: Present Grossly Intact and moves all extremities Assessment and Plan *Assessment and plan (1) Sepsis: Status: Acute Qualifiers: Sepsis type: sepsis due to unspecified organism Sepsis acute organ dysfunction status: without acute organ dysfunction Qualified Code(s): A41.9 - Sepsis, unspecified organism Category: Medical Code(s): A41.9 - Sepsis, unspecified organism (2) Abscess of sigmoid colon due to diverticulitis: Problem Comment: Developing diverticulitis with small/early abscess versus atypical colitis. Status: Acute Category: Medical Code(s): K57.20 - Diverticulitis of large intestine with perforation and abscess without bleeding (3) Mood disorder: Status: Chronic Category: Medical Code(s): F39 - Unspecified mood [affective] disorder Plan 62-year-old male who pre
--- NOTE | 2022-11-02 13:50 | HMH.ITSTN ---
called nurse there was an order for CT ordered routine and a KUB order was put in. Nurse explained that they ordered KUB because the CT had not been done. I advised was ordered routine and on weekends we only have 1 tech and the ER cases come first and I have not had time to get upstairs yet due to stat cases in the ER. She advised should have been ordered STAT, I advised was finishing a scan and would be up to get patient for scan and cancel KUB. Scan completed and patient returned to room at 1:55pm
--- NOTE | 2022-11-02 14:23 | EXP.SURG.PN ---
Subjective Narrative: Patient had acute exacerbation of pain this afternoon. Given significant morphine to control pain. Went for urgent CT scan which reveals worsening diverticulitis with free air. Exam Data for Last 24 hours Vital signs and Labs for Last 24 Hours: Temp Pulse Resp BP Pulse Ox 97.9 F 125 H 18 119/68 97 11/02/22 11:51 11/02/22 12:00 11/02/22 11:51 11/02/22 11:51 11/02/22 11:51 Laboratory Results - last 24 hr 11/02/22 07:15: WBC 11.3 H D, RBC 3.68 L, Hgb 11.4 L, Hct 32.3 L, MCV 87.8, MCH 31.0, MCHC 35.3, RDW 12.8, Plt Count 198, MPV 9.0, Neut % (Auto) 81.1 H, Lymph % (Auto) 14.4, [place] % (Auto) 3.9, Eos % (Auto) 0.3, Baso % (Auto) 0.3, Neut # (Auto) 9.2 H, Lymph # (Auto) 1.6, [place] # (Auto) 0.4, Eos # (Auto) 0.0, Baso # (Auto) 0.0 11/02/22 07:15: Sodium 134 L, Potassium 3.1 L, Chloride 102, Carbon Dioxide 28, Anion Gap 7.1, BUN 29 H D, Creatinine 1.00, Estimated Creat Clear 89, Estimated GFR 75, Est GFR ( Amer) 91, Glucose 86, Calcium 7.9 L, Total Bilirubin 1.0, AST 25, ALT 15 D, Alkaline Phosphatase 50, Total Protein 5.5 L, Albumin 2.9 L D, Globulin 2.6, Albumin/Globulin Ratio 1.1 I & O for Last 24 hours: Intake & Output 10/31/22 11/01/22 11/02/22 11/03/22 11:59 11:59 11:59 11:59 Intake Total 0 / 0 3124 / 3124 Output Total 0 / 0 400 / 400 Balance 0 / 0 2724 / 2724 Weight 182 lb 185 lb 1.6 oz 186 lb 1 oz Microbiology Reports for the Last 24 Hours: Microbiology 10/31/22 12:03 Blood Blood Culture - Preliminary NO GROWTH AFTER 48 HOURS 03/23/23 12:03 Blood Blood Culture - Preliminary NO GROWTH AFTER 48 HOURS 11/01/22 11:51 Sputum - Expectorated Sputum Gram Stain - Final *Routine Abdominal Exam Comments: Diffuse guarding. Progress Note: A&P Assessment and plan (1) Sepsis: Status: Acute (2) Abscess of sigmoid colon due to diverticulitis: Problem details: Developing diverticulitis with small/early abscess versus atypical colitis. Status: Acute Assessment and plan: Given patient's clinical deterioration and findings on CT scan he has worsening complicated diverticulitis refractory to medical management with actually progression of disease with maximal medical therapy. For source control he needs urgent laparotomy with colon resection and colostomy. (3) Mood disorder: Status: Chronic
--- NOTE | 2022-11-02 15:24 | PC.NURSE ---
PATIENT TAKEN TO SURGERY AT 1518.
--- NOTE | 2022-11-02 15:59 | EXP.ANES.CKL ---
[facility] Disclaimer: The information contained in this section may have been updated after the patient was seen, as this information can be updated by other users. Medical History Cataract Surgical History H/O knee surgery History of cholecystectomy History of hernia surgery Previous back surgery Family History Family history of cancer Social History Smoking Status: Never smoker alcohol intake: never substance use type: denies use current occupational status: employed Travel in the last 8 weeks: None [facility] Anesthesia Checklist Patient Identification Patient Identification: Verbal (Name & ) Structural Data Admitted From: Inpatient Planned Operative Procedure/s: exploratory laparotomy Consent for Planned Operative Procedure(s) Verified: Yes NPO Status Verified Time NPO: 07:00 Airway Assessment C-Spine Mobility Assessed: Yes TMJ Mobility Assessed: Yes Dentition: Good Dentition Neurological Assessment Level of Consciousness: Awake, Alert and Appropriate Anesthesia Plan Anesthesia Risk discussed: Yes Anesthesia Plan: Verified ASA Class: II Anesthesia Type: General
--- NOTE | 2022-11-02 17:03 | SUR.OPER ---
Notified Principal Security Architect Lexi Rooney RN that pt will need to transfer to stepdown per verbal order from MD Chauhan
--- NOTE | 2022-11-02 17:04 | SUR.OPER ---
Family updated at this time by Mere Brown RN
--- NOTE | 2022-11-02 18:31 | SUR.OPER ---
An Mcgill RN updating family at this time
--- NOTE | 2022-11-02 18:53 | EXP.OP.NOTE ---
Date of procedure: 11/02/22 Pre-op Diagnosis:: Acute diverticulitis, peritonitis, pneumoperitoneum Post-op Diagnosis:: Same Procedure performed:: Exploratory laparotomy, resection sigmoid colon with creation of end colostomy (Angelo's procedure), takedown/mobilization splenic flexure Surgeon:: Popeye Chauhan MD CORE CUTTER AND REAMER:: Jorge Huynh Anesthesia: GETA Estimated blood loss (mL): 50 Operative findings:: He had severe diverticulitis with formation of essentially phlegmonous mass of an extensive segment of sigmoid colon. There were adhesions of small bowel with fibropurulent exudate and adhesions to the bladder consistent with significant established peritonitis with resultant secondary ileus. Operative note:: Patient was taken to the operating room. He was positioned in supine position. General anesthesia was induced via endotracheal tube. Antunez catheter was placed. Abdomen was prepped and draped in the standard surgical fashion. Midline incision was made. Dissection was carried down through subcutaneous tissues. Fascia was incised. Peritoneum was elevated and incised. There was purulent fluid which exuded from the peritoneal cavity which was suctioned free. Low midline incision was opened in its entirety. Surveillance was carried out and there were loops of small bowel adherent to essentially a phlegmonous mass consistent with significant diverticulitis in the pelvis. Using careful blunt dissection the loops of small bowel were mobilized from the sigmoid colon and the sigmoid colon was mobilized from the bladder. Dissection was carried out incising the peritoneum laterally along the white line of [place]. This was carried out proximally to normal colon and inferiorly to near the rectosigmoid junction. The peritoneum was scored with electrocautery on the contralateral side of the mesentery. Proximal sigmoid colon at a site of relatively healthy colon was divided with SOLO 75 linear cutting stapling device. Colonic mesentery was divided using the Enseal device with dissection carried down to the rectosigmoid region where the colon was relatively healthy. The colon was divided at this site with the contour stapling device. Sigmoid colon was sent off as a specimen. Rectosigmoid rectal pouch staple line was then marked with a couple of 2-0 Prolene sutures for identification for future takedown. Inspection was then carried out of the proximal colon. It was foreshortened and the peritoneum was incised laterally with some division of the colonic mesentery in an attempt to obtain enough length for colostomy appliance. Ultimately this required extension of the laparotomy incision and takedown and mobilization of the splenic flexure using a combination of electrocautery for incising the peritoneum and Enseal device for splenocolic vessel ligation and division. This ultimately allowed for enough colon length without tension for creation of colostomy. The peritoneal cavity was then thoroughly irrigated with copious amounts of warm saline and aspirated until clear. Nasogastric tube was confirmed to be in a good position. Site was chosen for colostomy. Circular skin incision was made. A core of subcutaneous tissue was excised using electrocautery down to the fascia. Fascia was incised in a cruciate fashion and the rectus muscles were split. Posterior fascia was incised. The colon was then brought through the colostomy trephine. It was secured posteriorly with a couple of 2-0 Vicryl sutures and to the anterior fascia with a couple of 2-0 Vicryl sutures. Additional irrigation was carried out as the enteric contents were returned to the normal anatomic position. There appeared to be good hemostasis. Fascia was then closed with a running 0 looped PDS x2. Subcutaneous tissues were thoroughly irrigated. Skin was closed with tracie. Clean dry sterile occlusive dressing was applied. Attention was turned to maturation of the colostomy. Staple line was excised. Col
--- NOTE | 2022-11-02 19:02 | P.PNANES_ITS ---
[facility] Anesthesia Record Part I Anesthesia Record I Intake, IV Amount: 3,400 Estimated blood loss (mL): 400 Urine output (mL): 450 Blood Pressure: 138/74 SaO2: 93 Pulse Rate: 78 Respiratory Rate: 12 Temperature: 99.7 F Patient is:: Awake and Stable Stable to PACU at:: 18:50
--- NOTE | 2022-11-02 19:28 | PC.NURSE ---
pt arrived to floor from surgery at this time
--- NOTE | 2022-11-02 19:32 | PC.NURSE ---
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
[2022-11-02 20:45] LABS: Microscopic,Cath URINE MICROSCOPIC (MICROSCOPIC)
[2022-11-02 20:59] LABS: Appearance,Urine/Cath SL CLOUDY (Clear); Blood, Urine/Cath 3+ (Negative); Color,Urine/Cath YELLOW (Yellow); Glucose,Urine/Cath (UA) Negative (Negative); Ketones,Urine/Cath 2+ (Negative); Leukocyte Esterase,Cath Negative (Negative); Nitrate,Cath Negative (Negative); Protein,Urine/Cath 2+ (Negative); Specific Gravity, Urine/Cath 1.025 (1.005-1.030)
[2022-11-02 21:09] LABS: Bilirubin,Cath Negative (Negative)
[2022-11-02 22:04] LABS: Bacteria,Urine/Cath 1+ /lpf; RBC,Urine/Cath 50-100 # /hpf (0-3)
[2022-11-02 22:05] LABS: Amorphous Sediment,Ur/Cath 1+ /lpf
[2022-11-03] VITALS (12 sets, daily range): BP systolic 122–154; BP diastolic 68–86; PULSE 61–93; RESP 9–18; TEMP 36.5–36.7; O2SAT 91–96; BMI 26.6
[2022-11-03 07:16] LABS: Hematocrit 33.7 % (42.0-52.0); Hemoglobin 11.2 g/dL (14.1-18.0); Lymphocytes % 8.8 % (10-50); MANUAL DIFFERENTIAL MANUAL DIFFERENTIAL (MANUAL DIFF); Mean Corpuscular HGB Conc 33.2 g/dL (31.8-35.4); Mean Corpuscular Hemoglobin 30.6 pg (27.0-31.2); Mean Corpuscular Volume 92.2 fl (80-94); Mean Platelet Volume 9.2 fl (7.4-10.4); Monocytes # 0.3 K/mm3 (0.1-1.0); Monocytes % 2.9 % (1.7-9.3); Neutrophils # 10.3 K/mm3 (1.8-7.8); Neutrophils % 88.3 % (37.0-80.0); Platelet Count 260 K/mm3 (142-424); Red Blood Count 3.65 M/mm3 (4.60-6.20); Red Cell Distribution Width 12.9 % (11.5-17.5); White Blood Count 11.7 K/mm3 (4.8-10.8)
[2022-11-03 07:24] LABS: Alanine Aminotransferase 20 U/L (12-78); Albumin Level 2.6 g/dl (3.5-5.0); Alkaline Phosphatase 52 U/L (38-126); Anion Gap 8.1 mEq/L (5-15); Aspartate Amino Transferase 27 U/L (17-59); Bilirubin,Total 0.6 mg/dl (0.2-1.3); Blood Urea Nitrogen 25 mg/dl (9-20); Calcium 7.2 mg/dl (8.4-10.2); Carbon Dioxide 26 mmol/L (22.0-30.0); Chloride 105 mmol/L (98-107); Creatinine Clearance Estimated 94 mL/min (50-200); Estimated Glomerular Filt Rate 75 ml/min (>60); GFR (African American) 91 ML/MIN (>60); Globulin 2.6 g/dL (1.3-3.2); Glucose 128 mg/dl (74-100); Potassium 3.1 mmoL/L (3.5-5.1); Sodium 136 mmol/L (136-145); Total Protein,Serum 5.2 g/dl (6.3-8.2)
[2022-11-03 07:30] LABS: Lymphocytes % 10 % (10-50); Monocytes % 1 % (2-9); Neutrophils % 89 % (42-76); Platelet Estimate Normal; RBC Morphology Normal; Total Cells Counted 100
--- NOTE | 2022-11-03 10:32 | P.PN_ITS ---
Subjective Narrative: Patient without significant complaints. Exam Data for Last 24 hours Vital signs and Labs for Last 24 Hours: Temp Pulse Resp BP Pulse Ox 97.8 F 68 12 130/72 91 L 11/03/22 08:00 11/03/22 06:00 11/03/22 06:00 11/03/22 06:00 11/03/22 06:00 Laboratory Results - last 24 hr 11/02/22 15:30: Urine Color Yellow, Urine Appearance Sl cloudy, Urine pH 6.0, Ur Specific [place] 1.025, Urine Protein 2+, Urine Glucose (UA) Negative, Urine Ketones 2+, Urine Blood 3+, Urine Nitrate Negative, Urine Bilirubin Negative, Urine Urobilinogen 1.0, Ur Leukocyte Esterase Negative, Urine RBC 50-100, Urine WBC None, Ur Squamous Epith Cells 3-5, Urine Bacteria 1+ 11/03/22 06:45: WBC 11.7 H, RBC 3.65 L, Hgb 11.2 L, Hct 33.7 L, MCV 92.2, MCH 30.6, MCHC 33.2, RDW 12.9, Plt Count 260 D, MPV 9.2, Neut % (Auto) 88.3 H, Lymph % (Auto) 8.8 L, [place] % (Auto) 2.9, Eos % (Auto) 0.0 L, Baso % (Auto) 0.0 L , Neut # (Auto) 10.3 H, Lymph # (Auto) 1.0, [place] # (Auto) 0.3, Eos # (Auto) 0.0, Baso # (Auto) 0.0, Total Counted 100, Neutrophils % (Manual) 89 H, Lymphocytes % (Manual) 10, Monocytes % (Manual) 1 L, Platelet Estimate Normal, RBC Morphology Normal 11/03/22 06:45: Sodium 136, Potassium 3.1 L, Chloride 105, Carbon Dioxide 26, Anion Gap 8.1, BUN 25 H, Creatinine 1.00, Estimated Creat Clear 94, Estimated GFR 75, Est GFR ( Amer) 91, Glucose 128 H D, Calcium 7.2 L, Total Bilirubin 0.6, AST 27, ALT 20 D, Alkaline Phosphatase 52, Total Protein 5.2 L, Albumin 2.6 L D, Globulin 2.6, Albumin/Globulin Ratio 1.0 L I & O for Last 24 hours: Intake & Output 03/23/23 03/24/23 03/25/23 03/26/23 11:59 11:59 11:59 11:59 Intake Total 0 / 0 3124 / 3124 4402 / 4402 Output Total 0 / 0 400 / 400 800 / 800 Balance 0 / 0 2724 / 2724 3602 / 3602 Weight 182 lb 185 lb 1.6 oz 186 lb 1 oz 196 lb 9 oz Microbiology Reports for the Last 24 Hours: Microbiology 11/01/22 11:51 Sputum - Expectorated Sputum Gram Stain - Final 11/01/22 11:51 Sputum - Expectorated Sputum Sputum Culture - Preliminary 10/31/22 12:03 Blood Blood Culture - Preliminary NO GROWTH AFTER 48 HOURS 10/31/22 12:03 Blood Blood Culture - Preliminary NO GROWTH AFTER 48 HOURS *Routine Abdominal Exam Abdominal: Present soft Comments: Dressing with minimal serous drainage. Ostomy viable with some edema Progress Note: A&P Assessment and plan (1) Sepsis: Status: Acute (2) Abscess of sigmoid colon due to diverticulitis: Status: Acute Assessment and plan: DC NG tube. Continue n.p.o. except ice chips and chewing gum. Continue Antunez for now due to inflammatory process in the pelvis adherent to the bladder. Continue Zosyn. May be reasonable to transfer out of stepdown. (3) Mood disorder: Status: Chronic
--- NOTE | 2022-11-03 15:11 | EXP.ACUTE.PN ---
Subjective *Date: 11/03/22 *Time: 15:11 Interval history: No issues, pain controllled Medical Exam Vital signs and Labs for Last 24 Hours: Vital Signs Temp Pulse Pulse Resp BP BP Pulse Ox 11/03/22 11:17 98.0 F 78 18 131/78 91 L 11/03/22 10:00 69 18 132/72 91 L 11/03/22 08:00 71 92 L 11/03/22 08:00 70 11/03/22 08:00 97.8 F 11/03/22 04:00 61 11/03/22 06:00 68 12 130/72 91 L 11/03/22 04:00 97.9 F 11/03/22 04:00 63 12 122/68 94 L 11/03/22 02:00 97.7 F 70 9 L 135/72 94 L 11/03/22 01:00 63 12 128/74 94 L 11/03/22 00:00 97.8 F 11/03/22 00:00 68 11/03/22 00:00 98.1 F 61 11 L 128/71 94 L 11/02/22 23:00 58 L 10 L 132/64 94 L 11/02/22 22:00 64 9 L 141/78 H 94 L 11/02/22 21:30 69 9 L 136/77 95 11/02/22 21:00 61 11 L 141/75 H 94 L 11/02/22 20:30 56 L 12 138/70 95 11/02/22 20:15 57 L 11 L 138/72 95 11/02/22 20:00 53 L 13 132/70 95 11/02/22 19:45 58 L 11 L 139/72 94 L 11/02/22 19:32 98.0 F 59 L 13 135/69 92 L 11/02/22 19:10 69 16 142/74 H 94 L 11/02/22 19:00 68 17 142/71 H 95 11/02/22 19:20 67 16 142/76 H 95 11/02/22 18:50 99.7 F H 74 17 141/72 H 94 L 11/02/22 19:03 99.7 F H 78 12 138/74 Intake and Output 11/02/22 11/03/22 11/03/22 23:59 07:59 15:59 Intake Total 3400 / 3475 1002 / 1002 0 / 1002 Output Total 800 / 800 0 / 800 Balance 3400 / 3075 / 0 / Intake: Intake, Oral Amount 0 / 0 Intake, Total IV Amount 3400 / 3400 1002 / 1002 Lactated Ringers 1000ML 1,000 902 / 902 ml @ 100 mls/hr IV .Q10H [facility] Rx #:[id number] Piperacillin/Tazo 4.5 gm In 0.9 100 / 100 % Sodium Chloride 100 ml @ 200 mls/hr IV Q6H [facility] Rx#:[id number] Output: Output, Urine Amount 550 / 550 0 / 550 Output, Gastric Drainage Amount 250 / 250 Right Nare 250 / 250 Other: Number of Unmeasured Voids 0 Weight 89.159 kg Patient Weight 11/03/22 23:59 Weight 89.159 kg Laboratory Results - last 24 hr 11/02/22 15:30: Urine Color Yellow, Urine Appearance Sl cloudy, Urine pH 6.0, Ur Specific [place] 1.025, Urine Protein 2+, Urine Glucose (UA) Negative, Urine Ketones 2+, Urine Blood 3+, Urine Nitrate Negative, Urine Bilirubin Negative, Urine Urobilinogen 1.0, Ur Leukocyte Esterase Negative, Urine RBC 50-100, Urine WBC None, Ur Squamous Epith Cells 3-5, Urine Bacteria 1+ 11/03/22 06:45: WBC 11.7 H, RBC 3.65 L, Hgb 11.2 L, Hct 33.7 L, MCV 92.2, MCH 30.6, MCHC 33.2, RDW 12.9, Plt Count 260 D, MPV 9.2, Neut % (Auto) 88.3 H, Lymph % (Auto) 8.8 L, [place] % (Auto) 2.9, Eos % (Auto) 0.0 L, Baso % (Auto) 0.0 L, Neut # (Auto) 10.3 H, Lymph # (Auto) 1.0, [place] # (Auto) 0.3, Eos # (Auto) 0.0, Baso # (Auto) 0.0, Total Counted 100, Neutrophils % (Manual) 89 H, Lymphocytes % (Manual) 10, Monocytes % (Manual) 1 L, Platelet Estimate Normal, RBC Morphology Normal 11/03/22 06:45: Sodium 136, Potassium 3.1 L, Chloride 105, Carbon Dioxide 26, Anion Gap 8.1, BUN 25 H, Creatinine 1.00, Estimated Creat Clear 94, Estimated GFR 75, Est GFR ( Amer) 91, Glucose 128 H D, Calcium 7.2 L, Total Bilirubin 0.6, AST 27, ALT 20 D, Alkaline Phosphatase 52, Total Protein 5.2 L, Albumin 2.6 L D, Globulin 2.6, Albumin/Globulin Ratio 1.0 L I & O for Labs for Last 24 Hours: Intake & Output 10/31/22 11/01/22 11/02/22 11/03/22 23:59 23:59 23:59 23:59 Intake Total 0 / 0 3049 / 3049 3475 / 3475 1002 / 1002 Output Total 0 / 0 400 / 400 800 / 800 Balance 0 / 0 3049 / 3049 3075 / 3075 202 / 202 Weight 83.688 kg 83.96 kg 84.397 kg 89.159 kg Microbiology Reports for the Last 24 Hours: Microbiology 11/01/22 11:51 Sputum - Expectorated Sputum Gram Stain - Final 11/01/22 11:51 Sputum - Expectorated Sputum Sputum Culture - Preliminary 10/31/22 12:03 Blood Blood Culture - Preliminary
--- NOTE | 2022-11-03 15:14 | P.PN_ITS ---
Subjective *Date: 11/03/22 *Time: 15:14 Medical Exam Vital signs and Labs for Last 24 Hours: Vital Signs Temp Pulse Pulse Resp BP BP Pulse Ox 11/03/22 11:17 98.0 F 78 18 131/78 91 L 11/03/22 10:00 69 18 132/72 91 L 11/03/22 08:00 71 92 L 11/03/22 08:00 70 11/03/22 08:00 97.8 F 11/03/22 04:00 61 11/03/22 06:00 68 12 130/72 91 L 11/03/22 04:00 97.9 F 11/03/22 04:00 63 12 122/68 94 L 11/03/22 02:00 97.7 F 70 9 L 135/72 94 L 11/03/22 01:00 63 12 128/74 94 L 11/03/22 00:00 97.8 F 11/03/22 00:00 68 11/03/22 00:00 98.1 F 61 11 L 128/71 94 L 11/02/22 23:00 58 L 10 L 132/64 94 L 11/02/22 22:00 64 9 L 141/78 H 94 L 11/02/22 21:30 69 9 L 136/77 95 11/02/22 21:00 61 11 L 141/75 H 94 L 11/02/22 20:30 56 L 12 138/70 95 11/02/22 20:15 57 L 11 L 138/72 95 11/02/22 20:00 53 L 13 132/70 95 11/02/22 19:45 58 L 11 L 139/72 94 L 11/02/22 19:32 98.0 F 59 L 13 135/69 92 L 11/02/22 19:10 69 16 142/74 H 94 L 11/02/22 19:00 68 17 142/71 H 95 11/02/22 19:20 67 16 142/76 H 95 11/02/22 18:50 99.7 F H 74 17 141/72 H 94 L 11/02/22 19:03 99.7 F H 78 12 138/74 Intake and Output 11/02/22 11/03/22 11/03/22 23:59 07:59 15:59 Intake Total 3400 / 3475 1002 / 1002 0 / 1002 Output Total 800 / 800 0 / 800 Balance 3400 / 3075 / 0 / Intake: Intake, Oral Amount 0 / 0 Intake, Total IV Amount 3400 / 3400 1002 / 1002 Lactated Ringers 1000ML 1,000 902 / 902 ml @ 100 mls/hr IV .Q10H [facility] Rx #:[id number] Piperacillin/Tazo 4.5 gm In 0.9 100 / 100 % Sodium Chloride 100 ml @ 200 mls/hr IV Q6H [facility] Rx#:[id number] Output: Output, Urine Amount 550 / 550 0 / 550 Output, Gastric Drainage Amount 250 / 250 Right Nare 250 / 250 Other: Number of Unmeasured Voids 0 Weight 89.159 kg Patient Weight 11/03/22 23:59 Weight 89.159 kg Laboratory Results - last 24 hr 11/02/22 15:30: Urine Color Yellow, Urine Appearance Sl cloudy, Urine pH 6.0, Ur Specific [place] 1.025, Urine Protein 2+, Urine Glucose (UA) Negative, Urine Ketones 2+, Urine Blood 3+, Urine Nitrate Negative, Urine Bilirubin Negative, Urine Urobilinogen 1.0, Ur Leukocyte Esterase Negative, Urine RBC 50-100, Urine WBC None, Ur Squamous Epith Cells 3-5, Urine Bacteria 1+ 11/03/22 06:45: WBC 11.7 H, RBC 3.65 L, Hgb 11.2 L, Hct 33.7 L, MCV 92.2, MCH 30.6, MCHC 33.2, RDW 12.9, Plt Count 260 D, MPV 9.2, Neut % (Auto) 88.3 H, Lymph % (Auto) 8.8 L, [place] % (Auto) 2.9, Eos % (Auto) 0.0 L, Baso % (Auto) 0.0 L , Neut # (Auto) 10.3 H, Lymph # (Auto) 1.0, [place] # (Auto) 0.3, Eos # (Auto) 0.0, Baso # (Auto) 0.0, Total Counted 100, Neutrophils % (Manual) 89 H, Lymphocytes % (Manual) 10, Monocytes % (Manual) 1 L, Platelet Estimate Normal, RBC Morphology Normal 11/03/22 06:45: Sodium 136, Potassium 3.1 L, Chloride 105, Carbon Dioxide 26, Anion Gap 8.1, BUN 25 H, Creatinine 1.00, Estimated Creat Clear 94, Estimated GFR 75, E
[2022-11-04] VITALS (10 sets, daily range): BP systolic 121–163; BP diastolic 65–88; PULSE 56–84; RESP 16–20; TEMP 36.2–37.6; O2SAT 93–97; BMI 26.9
--- NOTE | 2022-11-04 00:36 | PC.NURSE ---
COURTESY ROUND PATIENT AWAKE LAYING IN THE BED . TRASH AND LINENS EMPTIED . CALL LIGHT WITHIN REACH
--- NOTE | 2022-11-04 06:00 | PC.NURSE ---
pt rested well, 34.1 total mg cleared from stoneworker pump, pt without nausea and vomiting this am, vss, no changes from previous assessment, telemetry reveals nsr, midline inc without drainage or redness noted, stoma dark pink with blood tinged drainage noted in ostomy bag, ken at bedside this am to assess. dr rogers informed pt that blackman will be d/c'd today and ambulate in hallway as tolerated.
--- NOTE | 2022-11-04 06:12 | EXP.SURG.PN ---
Subjective Patient reports: no new complaints Narrative: Patient tolerated NG out. Taking ice chips and oral medications without issue. Exam Data for Last 24 hours Vital signs and Labs for Last 24 Hours: Temp Pulse Resp BP Pulse Ox FiO2 97.6 F 80 18 132/74 94 L 2 11/04/22 04:00 11/04/22 04:00 11/04/22 04:00 11/04/22 04:00 11/04/22 04:00 11/04/22 02:00 Laboratory Results - last 24 hr 11/03/22 06:45: WBC 11.7 H, RBC 3.65 L, Hgb 11.2 L, Hct 33.7 L, MCV 92.2, MCH 30.6, MCHC 33.2, RDW 12.9, Plt Count 260 D, MPV 9.2, Neut % (Auto) 88.3 H, Lymph % (Auto) 8.8 L, [place] % (Auto) 2.9, Eos % (Auto) 0.0 L, Baso % (Auto) 0.0 L, Neut # (Auto) 10.3 H, Lymph # (Auto) 1.0, [place] # (Auto) 0.3, Eos # (Auto) 0.0, Baso # (Auto) 0.0, Total Counted 100, Neutrophils % (Manual) 89 H, Lymphocytes % (Manual) 10, Monocytes % (Manual) 1 L, Platelet Estimate Normal, RBC Morphology Normal 11/03/22 06:45: Sodium 136, Potassium 3.1 L, Chloride 105, Carbon Dioxide 26, Anion Gap 8.1, BUN 25 H, Creatinine 1.00, Estimated Creat Clear 94, Estimated GFR 75, Est GFR ( Amer) 91, Glucose 128 H D, Calcium 7.2 L, Total Bilirubin 0.6, AST 27, ALT 20 D, Alkaline Phosphatase 52, Total Protein 5.2 L, Albumin 2.6 L D, Globulin 2.6, Albumin/Globulin Ratio 1.0 L I & O for Last 24 hours: Intake & Output 11/01/22 11/02/22 11/03/22 11/04/22 11:59 11:59 11:59 11:59 Intake Total 0 / 0 3124 / 3124 4402 / 4402 2857 / 2857 Output Total 0 / 0 400 / 400 800 / 800 750 / 750 Balance 0 / 0 2724 / 2724 3602 / 3602 2106 / 210 Weight 185 lb 1.6 oz 186 lb 1 oz 196 lb 9 oz 198 lb 7 oz *Routine Abdominal Exam Abdominal: Present distended (Slightly distended.) and ostomy Progress Note: A&P Assessment and plan (1) Sepsis: Status: Acute (2) Abscess of sigmoid colon due to diverticulitis: Status: Acute Assessment and plan: Continue antibiotics for established peritonitis. NPO except ice chips and meds. DC blackman. Out of bed, ambulate. (3) Mood disorder: Status: Chronic
[2022-11-04 06:27] LABS: Basophils % 0.2 % (0.1-2.0); Hematocrit 32.2 % (42.0-52.0); Hemoglobin 10.6 g/dL (14.1-18.0); Lymphocytes # 1.3 K/mm3 (0.7-4.5); Lymphocytes % 9.7 % (10-50); Mean Corpuscular Hemoglobin 30.1 pg (27.0-31.2); Mean Corpuscular Volume 91.5 fl (80-94); Mean Platelet Volume 9.2 fl (7.4-10.4); Monocytes # 0.7 K/mm3 (0.1-1.0); Monocytes % 4.9 % (1.7-9.3); Neutrophils # 11.6 K/mm3 (1.8-7.8); Neutrophils % 85.2 % (37.0-80.0); Platelet Count 330 K/mm3 (142-424); Red Blood Count 3.52 M/mm3 (4.60-6.20); Red Cell Distribution Width 12.8 % (11.5-17.5); White Blood Count 13.6 K/mm3 (4.8-10.8)
[2022-11-04 06:28] LABS: MANUAL DIFFERENTIAL MANUAL DIFFERENTIAL (MANUAL DIFF)
[2022-11-04 06:38] LABS: Alanine Aminotransferase 22 U/L (12-78); Albumin Level 2.6 g/dl (3.5-5.0); Alkaline Phosphatase 61 U/L (38-126); Anion Gap 9.5 mEq/L (5-15); Aspartate Amino Transferase 35 U/L (17-59); Bilirubin,Total 0.6 mg/dl (0.2-1.3); Blood Urea Nitrogen 25 mg/dl (9-20); Calcium 7.6 mg/dl (8.4-10.2); Carbon Dioxide 30 mmol/L (22.0-30.0); Chloride 105 mmol/L (98-107); Creatinine Clearance Estimated 95 mL/min (50-200); Estimated Glomerular Filt Rate 75 ml/min (>60); GFR (African American) 91 ML/MIN (>60); Globulin 2.7 g/dL (1.3-3.2); Glucose 132 mg/dl (74-100); Potassium 3.5 mmoL/L (3.5-5.1); Sodium 141 mmol/L (136-145); Total Protein,Serum 5.3 g/dl (6.3-8.2)
--- NOTE | 2022-11-04 06:39 | PC.NURSE ---
blackman catheter removed, pt tolerated well
--- NOTE | 2022-11-04 06:42 | PC.NURSE ---
pt attempting to ambulate in hallway at this time.
--- NOTE | 2022-11-04 06:51 | PC.NURSE ---
pt ambulated in hallway half way to omni pod area and back to room, pt tolerated well with occasional rests.
[2022-11-04 06:58] LABS: Magnesium 2.5 mg/dl (1.6-2.3); Phosphorous 2.2 mg/dl (2.5-4.5)
--- NOTE | 2022-11-04 07:12 | EXP.ANES.II ---
[facility] Anesthesia Record Part II Anesthesia Record Part II Discharge Time: 19:20 (11/02/22) Destination: Medical Surgical Department PACU nurse assessment reviewed?: Yes Patient Condition:: Good Anesthesia Complications:: None Swallowing reflex intact?: Yes Cyanosis?: No Blood Pressure: 142/76 Pulse Rate: 67 Temperature: 99.7 F Mental Status: Alert & Oriented Pain level:: 0 Nausea and/or vomitting:: None Intake, IV Amount: 0
[2022-11-04 07:13] LABS: Lymphocytes % 7 % (10-50); Monocytes % 3 % (2-9); Neutrophils % 90 % (42-76); Total Cells Counted 100
[2022-11-04 07:14] LABS: Platelet Estimate Normal; RBC Morphology Normal
--- NOTE | 2022-11-04 09:48 | EXP.PHA.PN ---
Subjective *Date: 11/04/22 *Time: 09:49 Medical Exam Vital signs and Labs for Last 24 Hours: Vital Signs Temp Pulse Pulse Resp BP BP BP 11/04/22 08:00 98.4 F 61 20 130/74 11/04/22 06:00 63 156/86 H 11/04/22 04:00 97.6 F 80 18 132/74 11/04/22 04:00 60 11/04/22 02:00 59 L 16 121/65 11/03/22 20:00 70 11/04/22 00:00 60 11/04/22 00:00 97.4 F L 62 18 121/67 11/03/22 20:00 93 H 11/03/22 20:49 97.9 F 89 18 154/86 H 11/03/22 16:00 80 11/03/22 15:36 97.8 F 82 18 149/84 H 11/03/22 11:17 98.0 F 78 18 131/78 11/03/22 10:00 69 18 132/72 11/04/22 07:14 99.7 F H 67 142/76 H Pulse Ox FiO2 11/04/22 08:00 96 11/04/22 06:00 96 11/04/22 04:00 94 L 11/04/22 04:00 11/04/22 02:00 95 2 11/03/22 20:00 11/04/22 00:00 11/04/22 00:00 94 L 11/03/22 20:00 95 11/03/22 20:49 94 L 11/03/22 16:00 11/03/22 15:36 96 11/03/22 11:17 91 L 11/03/22 10:00 91 L 11/04/22 07:14 Intake and Output 11/03/22 11/04/22 11/04/22 23:59 07:59 15:59 Intake Total 1242 / 2244 1615 / 1615 0 / 1615 Output Total 0 / 1200 550 / 550 Balance 1242 / 1044 1065 / 1065 0 / 1065 Intake: Intake, Oral Amount 300 / 300 0 / 300 Intake, Total IV Amount 1242 / 2244 1315 / 1315 Lactated Ringers 1000ML 1,000 1242 / 2144 1115 / 1115 ml @ 100 mls/hr IV .Q10H [facility] Rx #:[id number] Piperacillin/Tazo 4.5 gm In 0.9 200 / 200 % Sodium Chloride 100 ml @ 200 mls/hr IV Q6H [facility] Rx#:[id number] Output: Output, Urine Amount 0 / 550 350 / 350 Output, Urine Amount (Catheter) 200 / 200 [place] 200 / 200 Other: Number of Unmeasured Voids 0 0 Weight 90.01 kg Patient Weight 11/04/22 23:59 Weight 90.01 kg Laboratory Results - last 24 hr 11/04/22 05:29: WBC 13.6 H, RBC 3.52 L, Hgb 10.6 L, Hct 32.2 L, MCV 91.5, MCH 30.1, MCHC 33.0, RDW 12.8, Plt Count 330 D, MPV 9.2, Neut % (Auto) 85.2 H, Lymph % (Auto) 9.7 L, [place] % (Auto) 4.9, Eos % (Auto) 0.0 L, Baso % (Auto) 0.2, Neut # (Auto) 11.6 H, Lymph # (Auto) 1.3, [place] # (Auto) 0.7, Eos # (Auto) 0.0, Baso # (Auto) 0.0, Total Counted 100, Neutrophils % (Manual) 90 H, Lymphocytes % (Manual) 7 L, Monocytes % (Manual) 3, Platelet Estimate Normal, RBC Morphology Normal 11/04/22 05:29: Sodium 141, Potassium 3.5, Chloride 105, Carbon Dioxide 30, Anion Gap 9.5, BUN 25 H, Creatinine 1.00, Estimated Creat Clear 95, Estimated GFR 75, Est GFR ( Amer) 91, Glucose 132 H, Calcium 7.6 L, Total Bilirubin 0.6, AST 35 D, ALT 22, Alkaline Phosphatase 61, Total Protein 5.3 L, Albumin 2.6 L, Globulin 2.7, Albumin/Globulin Ratio 1.0 L 11/04/22 05:29: Phosphorus 2.2 L, Magnesium 2.5 H D I & O for Labs for Last 24 Hours: Intake & Output 11/01/22 11/02/22 11/03/22 11/04/22 23:59 23:59 23:59 23:59 Intake Total 3049 / 3049 3475 / 3475 2244 / 2244 1615 / 1615 Output Total 0 / 0 400 / 400 1200 / 1200 550 / 550 Balance 3049 / 3049 3075 / 3075 1044 / 1044 1065 / 1065 Weight 83.96 kg 84.397 kg 89.159 kg 90.01 kg Microbiology Reports for the Last 24 Hours: Microbiology 11/01/22 11:51 Sputum - Expectorated Sputum Gram Stain - Final 11/01/22 11:51 Sputum - Expectorated Sputum Sputum Culture - Preliminary Gram Positive Cocci The patient's infection will respond to the chosen ABx?: Yes (FINAL C/S PENDING, SPUTUM GPC.) Is the patient receiving the right drug, dose, and route?: Yes Could a more targeted ABx be ordered?: No
--- NOTE | 2022-11-04 13:22 | SW/DCPLANNER ---
Addendum entered by Ania Marroquin RN 11/13/22 11:32: Patient was sent home with referral to [facility]. They contacted patient to set up first visit and he refused home health services. GULSHAN Price Addendum entered by Carol Garcia 11/04/22 14:08: Patient does have a home health benefit ($1200 OOP will owe 20% per visit until OOP met): I will update patient. Original Note: Patient information has been has been faxed to [facility] for ostomy starter kit to be sent to patient's home: patient is agreeable. Patient information was also faxed to [facility] to see if patient has a home health policy.
--- NOTE | 2022-11-04 14:26 | EXP.ACUTE.PN ---
Subjective *Date: 11/04/22 *Time: 14:37 Interval history: Patient states he is feeling better this morning. Still having pain and using MINING TECHNICIAN but less frequent. No nausea or vomiting. Having serous drainage from colostomy. Afebrile. Hemodynamically stable. Medical Exam Vital signs and Labs for Last 24 Hours: Vital Signs Temp Pulse Pulse Resp BP BP BP 11/04/22 12:00 63 11/04/22 12:00 97.7 F 68 18 163/88 H 11/04/22 08:00 73 11/04/22 08:00 98.4 F 61 20 130/74 11/04/22 06:00 63 156/86 H 11/04/22 04:00 97.6 F 80 18 132/74 11/04/22 04:00 60 11/04/22 02:00 59 L 16 121/65 11/03/22 20:00 70 11/04/22 00:00 60 11/04/22 00:00 97.4 F L 62 18 121/67 11/03/22 20:00 93 H 11/03/22 20:49 97.9 F 89 18 154/86 H 11/03/22 16:00 80 11/03/22 15:36 97.8 F 82 18 149/84 H 11/04/22 07:14 99.7 F H 67 142/76 H Pulse Ox FiO2 11/04/22 12:00 11/04/22 12:00 93 L 11/04/22 08:00 11/04/22 08:00 96 11/04/22 06:00 96 11/04/22 04:00 94 L 11/04/22 04:00 11/04/22 02:00 95 2 11/03/22 20:00 11/04/22 00:00 11/04/22 00:00 94 L 11/03/22 20:00 95 11/03/22 20:49 94 L 11/03/22 16:00 11/03/22 15:36 96 11/04/22 07:14 Intake and Output 11/03/22 11/04/22 11/04/22 23:59 07:59 15:59 Intake Total 1242 / 2244 1615 / 1615 0 / 1615 Output Total 0 / 1200 550 / 625 75 / 625 Balance 1242 / 1044 1065 / 990 -75 / 990 Intake: Intake, Oral Amount 300 / 300 0 / 300 Intake, Total IV Amount 1242 / 2244 1315 / 1315 Lactated Ringers 1000ML 1,000 1242 / 2144 1115 / 1115 ml @ 100 mls/hr IV .Q10H [facility] Rx #:[id number] Piperacillin/Tazo 4.5 gm In 0.9 200 / 200 % Sodium Chloride 100 ml @ 200 mls/hr IV Q6H [facility] Rx#:[id number] Output: Output, Urine Amount 0 / 550 350 / 350 Output, Other Amount 75 / 75 Output, Urine Amount (Catheter) 200 / 200 [place] 200 / 200 Other: Number of Unmeasured Voids 0 0 Weight 90.01 kg 90.01 kg Patient Weight 11/04/22 23:59 Weight 90.01 kg Laboratory Results - last 24 hr 11/04/22 05:29: WBC 13.6 H, RBC 3.52 L, Hgb 10.6 L, Hct 32.2 L, MCV 91.5, MCH 30.1, MCHC 33.0, RDW 12.8, Plt Count 330 D, MPV 9.2, Neut % (Auto) 85.2 H, Lymph % (Auto) 9.7 L, [place] % (Auto) 4.9, Eos % (Auto) 0.0 L, Baso % (Auto) 0.2, Neut # (Auto) 11.6 H, Lymph # (Auto) 1.3, [place] # (Auto) 0.7, Eos # (Auto) 0.0, Baso # (Auto) 0.0, Total Counted 100, Neutrophils % (Manual) 90 H, Lymphocytes % (Manual) 7 L, Monocytes % (Manual) 3, Platelet Estimate Normal, RBC Morphology Normal 11/04/22 05:29: Sodium 141, Potassium 3.5, Chloride 105, Carbon Dioxide 30, Anion Gap 9.5, BUN 25 H, Creatinine 1.00, Estimated Creat Clear 95, Estimated GFR 75, Est GFR ( Amer) 91, Glucose 132 H, Calcium 7.6 L, Total Bilirubin 0.6, AST 35 D, ALT 22, Alkaline Phosphatase 61, Total Protein 5.3 L, Albumin 2.6 L, Globulin 2.7, Albumin/Globulin Ratio 1.0 L 11/04/22 05:29: Phosphorus 2.2 L, Magnesium 2.5 H D I & O for Labs for Last 24 Hours: Intake & Output 11/01/22 11/02/22 11/03/22 11/04/22 23:59 23:59 23:59 23:59 Intake Total 3049 / 3049 3475 / 3475 2244 / 2244 1615 / 1615 Output Total 0 / 0 400 / 400 1200 / 1200 625 / 625 Balance 3049 / 3049 3075 / 3075 1044 / 1044 990 / 990 Weight 83.96 kg 84.397 kg 89.159 kg 90.01 kg Microbiology Reports for the Last 24 Hours: Microbiology 11/01/22 11:51 Sputum - Expectorated Sputum Gram Stain - Final 11/01/22 11:51 Sputum - Expectorated Sputum Sputum Culture - Preliminary Gram Positive Cocci Constitutional: Present no acute distress Head: Present atraumatic and normocephalic ENT: Present normal exam Neck: Present normal inspection Respiratory: Present crackles (In bilateral bases) and normal respiratory effort; Absent accessory muscle use, rhonchi or wheezes Cardiac: Present Re
--- NOTE | 2022-11-04 17:06 | PC.NURSE ---
A&OX4 T/O SHIFT. TOLERATING RA. PT HAS AMBULATED IN ROOM AND HALLWAY, TOLERATED WELL. PT'S PAIN IS WELL CONTROLLED WITH MORPHINE ROLL HAULER. HAS VOIDED SINCE F/C REMOVAL THIS MORNING. SEROUS DRAINAGE FROM STOMA. MIDLINE INCISION CDI. PT HAS HAD VISITORS T/O DAY. NO NEEDS OR C/O NOTED AT THIS TIME, VSS.
--- NOTE | 2022-11-04 18:54 | PC.NURSE ---
MORPHINE PUMP CLEARED AT THIS TIME, 29.3MG GIVEN THIS SHIFT.
[2022-11-05] VITALS (10 sets, daily range): BP systolic 137–180; BP diastolic 73–97; PULSE 50–90; RESP 17–18; TEMP 36.4–36.7; O2SAT 93–100; BMI 26.8
--- NOTE | 2022-11-05 03:31 | PC.NURSE ---
Pt. has had some drainage in his ostomy that is serosanguineous in color. No complaints of pain as he uses his Morpine bumper and painter for pain control. Midline dressing c/d/i.
--- NOTE | 2022-11-05 04:29 | PC.NURSE ---
Pt. received a total of 6.3 mg of morphine on my shift.
[2022-11-05 07:16] LABS: Basophils # 0.1 K/mm3 (0-0.2); Basophils % 0.5 % (0.1-2.0); Eosinophils # 0.2 K/mm3 (0.0-0.4); Eosinophils % 1.6 % (0.1-12.0); Hematocrit 36.3 % (42.0-52.0); Hemoglobin 11.5 g/dL (14.1-18.0); Lymphocytes # 2.1 K/mm3 (0.7-4.5); Lymphocytes % 16.6 % (10-50); Mean Corpuscular HGB Conc 31.7 g/dL (31.8-35.4); Mean Corpuscular Hemoglobin 29.8 pg (27.0-31.2); Mean Corpuscular Volume 94.1 fl (80-94); Mean Platelet Volume 8.8 fl (7.4-10.4); Monocytes # 0.7 K/mm3 (0.1-1.0); Monocytes % 5.5 % (1.7-9.3); Neutrophils # 9.7 K/mm3 (1.8-7.8); Neutrophils % 75.7 % (37.0-80.0); Platelet Count 383 K/mm3 (142-424); Red Blood Count 3.86 M/mm3 (4.60-6.20); Red Cell Distribution Width 12.9 % (11.5-17.5); White Blood Count 12.9 K/mm3 (4.8-10.8)
[2022-11-05 07:23] LABS: Alanine Aminotransferase 36 U/L (12-78); Alkaline Phosphatase 80 U/L (38-126); Anion Gap 7.9 mEq/L (5-15); Aspartate Amino Transferase 54 U/L (17-59); Blood Urea Nitrogen 28 mg/dl (9-20); Calcium 8.2 mg/dl (8.4-10.2); Carbon Dioxide 30 mmol/L (22.0-30.0); Chloride 107 mmol/L (98-107); Creatinine Clearance Estimated 95 mL/min (50-200); Estimated Glomerular Filt Rate 75 ml/min (>60); GFR (African American) 91 ML/MIN (>60); Globulin 3.1 g/dL (1.3-3.2); Glucose 98 mg/dl (74-100); Potassium 3.9 mmoL/L (3.5-5.1); Sodium 141 mmol/L (136-145); Total Protein,Serum 6.1 g/dl (6.3-8.2)
[2022-11-05 07:29] LABS: Phosphorous 1.3 mg/dl (2.5-4.5)
--- NOTE | 2022-11-05 08:04 | P.PN_ITS ---
Subjective Narrative: Patient is without complaints. No nausea. Abdominal pain controlled. Exam Data for Last 24 hours Vital signs and Labs for Last 24 Hours: Temp Pulse Resp BP Pulse Ox FiO2 97.5 F L 66 18 137/73 95 2 11/05/22 07:32 11/05/22 07:32 11/05/22 07:32 11/05/22 07:32 11/05/22 07:32 11/04/22 02:00 Laboratory Results - last 24 hr 11/05/22 07:02: WBC 12.9 H, RBC 3.86 L, Hgb 11.5 L, Hct 36.3 L, MCV 94.1 H, MCH 29.8, MCHC 31.7 L, RDW 12.9, Plt Count 383, MPV 8.8, Neut % (Auto) 75.7, Lymph % (Auto) 16.6, [place] % (Auto) 5.5, Eos % (Auto) 1.6, Baso % (Auto) 0.5, Neut # (Auto) 9.7 H, Lymph # (Auto) 2.1, [place] # (Auto) 0.7, Eos # (Auto) 0.2, Baso # (Auto) 0.1 11/05/22 07:02: Sodium 141, Potassium 3.9, Chloride 107, Carbon Dioxide 30, Anion Gap 7.9, BUN 28 H, Creatinine 1.00, Estimated Creat Clear 95, Estimated GFR 75, Est GFR ( Amer) 91, Glucose 98, Calcium 8.2 L, Phosphorus 1.3 L D , Total Bilirubin 1.0, AST 54 D, ALT 36 D, Alkaline Phosphatase 80, Total Protein 6.1 L, Albumin 3.0 L D, Globulin 3.1, Albumin/Globulin Ratio 1.0 L I & O for Last 24 hours: Intake & Output 11/02/22 11/03/22 11/04/22 11/05/22 11:59 11:59 11:59 11:59 Intake Total 3124 / 3124 4402 / 4402 2857 / 2857 300 / 300 Output Total 400 / 400 800 / 800 1025 / 1025 6 / 6 Balance 2724 / 2724 3602 / 3602 1832 / 1832 294 / 294 Weight 186 lb 1 oz 196 lb 9 oz 198 lb 7 oz 197 lb 14.4 oz Microbiology Reports for the Last 24 Hours: Microbiology 03/24/23 11:51 Sputum - Expectorated Sputum Gram Stain - Final 11/01/22 11:51 Sputum - Expectorated Sputum Sputum Culture - Final Staphylococcus epidermidis *Routine Abdominal Exam Abdominal: Present soft Comments: Abdomen is slightly distended. Ostomy viable with decreasing edema. No appreciable output. Progress Note: A&P Assessment and plan (1) Sepsis: Status: Acute (2) Abscess of sigmoid colon due to diverticulitis: Status: Acute Assessment and plan: Patient may have a few sips of clear liquids, limited. Awaiting resolution of ileus with return of bowel function. Continue antibiotics for established peritonitis. (3) Mood disorder: Status: Chronic
--- NOTE | 2022-11-05 08:39 | PC.NURSE ---
md aware of critical phosphorus level
--- NOTE | 2022-11-05 12:51 | EXP.ACUTE.PN ---
Subjective *Date: 11/05/22 *Time: 15:05 Interval history: Denies any nausea or vomiting. Passing gas from his stoma. Afebrile. Tolerating sips and chips. Stable on room air. Pain responding to transition to oral medication. Medical Exam Vital signs and Labs for Last 24 Hours: Vital Signs Temp Pulse Pulse Resp BP BP Pulse Ox 11/05/22 11:02 97.7 F 68 17 149/75 H 96 11/05/22 07:32 97.5 F L 66 18 137/73 95 11/05/22 04:33 90 11/05/22 00:00 50 L 11/05/22 04:00 97.6 F 74 18 164/91 H 95 11/04/22 23:58 97.6 F 56 L 18 137/68 93 L 11/04/22 20:00 60 11/04/22 20:00 97 11/04/22 20:00 97.1 F L 69 18 135/77 93 L 11/04/22 16:00 84 11/04/22 16:00 97.8 F 63 18 144/71 H 94 L Intake and Output 11/04/22 11/05/22 11/05/22 23:59 07:59 15:59 Intake Total 200 / 1815 100 / 100 Output Total 0 / 625 6 / 6 0 / 6 Balance 200 / 1190 94 / 94 0 / 94 Intake: Intake, Oral Amount 0 / 0 Intake, Total IV Amount 200 / 1515 100 / 100 Piperacillin/Tazo 4.5 gm In 0.9 200 / 400 100 / 100 % Sodium Chloride 100 ml @ 200 mls/hr IV Q6H [facility] Rx#:[id number] Output: Output, Urine Amount 0 / 350 0 / 0 0 / 0 Output, Gastric Drainage Amount 6 / 6 Lower Quadrant 6 / 6 Other: Number of Unmeasured Voids 1 2 1 Weight 89.766 kg Patient Weight 11/05/22 23:59 Weight 89.766 kg Laboratory Results - last 24 hr 11/05/22 07:02: WBC 12.9 H, RBC 3.86 L, Hgb 11.5 L, Hct 36.3 L, MCV 94.1 H, MCH 29.8, MCHC 31.7 L, RDW 12.9, Plt Count 383, MPV 8.8, Neut % (Auto) 75.7, Lymph % (Auto) 16.6, [place] % (Auto) 5.5, Eos % (Auto) 1.6, Baso % (Auto) 0.5, Neut # (Auto) 9.7 H, Lymph # (Auto) 2.1, [place] # (Auto) 0.7, Eos # (Auto) 0.2, Baso # (Auto) 0.1 11/05/22 07:02: Sodium 141, Potassium 3.9, Chloride 107, Carbon Dioxide 30, Anion Gap 7.9, BUN 28 H, Creatinine 1.00, Estimated Creat Clear 95, Estimated GFR 75, Est GFR ( Amer) 91, Glucose 98, Calcium 8.2 L, Phosphorus 1.3 L D, Total Bilirubin 1.0, AST 54 D, ALT 36 D, Alkaline Phosphatase 80, Total Protein 6.1 L, Albumin 3.0 L D, Globulin 3.1, Albumin/Globulin Ratio 1.0 L I & O for Labs for Last 24 Hours: Intake & Output 11/02/22 11/03/22 11/04/22 11/05/22 23:59 23:59 23:59 23:59 Intake Total 3475 / 3475 2244 / 2244 1815 / 1815 100 / 100 Output Total 400 / 400 1200 / 1200 625 / 625 6 / 6 Balance 3075 / 3075 1044 / 1044 1190 / 1190 94 / 94 Weight 84.397 kg 89.159 kg 90.01 kg 89.766 kg Microbiology Reports for the Last 24 Hours: Microbiology 10/31/22 12:03 Blood Blood Culture - Final NO GROWTH AFTER 5 DAYS 10/31/22 12:03 Blood Blood Culture - Final NO GROWTH AFTER 5 DAYS 11/01/22 11:51 Sputum - Expectorated Sputum Gram Stain - Final 11/01/22 11:51 Sputum - Expectorated Sputum Sputum Culture - Final Staphylococcus epidermidis Constitutional: Present no acute distress Head: Present atraumatic and normocephalic ENT: Present normal exam Neck: Present normal inspection Respiratory: Present crackles (In bilateral bases) and normal respiratory effort; Absent accessory muscle use, rhonchi or wheezes Cardiac: Present Reg Rate and Rhythm GI: Present soft and tenderness (Moderate nonfocal tenderness); Absent distention or normal bowel sounds Comments:: ostomy, sanginous output, gas in bag Extremities: Present normal inspection and full ROM Skin: Present intact; Absent erythema Neuro: Present Grossly Intact and moves all extremities Assessment and Plan *Assessment and plan (1) Sepsis: Status: Acute Qualifiers: Sepsis type: sepsis due to unspecified organism Sepsis acute organ dysfunction status: without acute organ dysfunction Qualified Code(s): A41.9 - Sepsis, unspecified organism Category: Medical Code(s): A41.9 - Sepsis, unspecified organism (2) Abscess of s
--- NOTE | 2022-11-05 15:00 | PC.NURSE ---
Stopped Morphine WRITING MANAGER, wasted 15mg. Cleared 9mg at time of waste from WRITING MANAGER pump.
--- NOTE | 2022-11-05 15:18 | PC.NURSE ---
Discontinued Morphine SPOT WASHER. Removed post op surgical site dressing, tracie intact, red beefy stoma noted. covered tracie with 4x4 and tegaderm, applied new all-in-one osotomy bag to stoma site. Patient tolerated.
--- NOTE | 2022-11-05 16:02 | DIET.NUTRFU ---
Provided and reviewed handout on foods with ostomy bag. Patient is still on sips of clears, did not like the starry night pop agreed to try orange Gatorade. He is requesting jello, explained to him sx wants to wait for movement prior to advancing diet.
[2022-11-06] VITALS (7 sets, daily range): BP systolic 161–176; BP diastolic 67–78; PULSE 40–100; RESP 16–18; TEMP 36.6–37; O2SAT 93–95; BMI 26.8
--- NOTE | 2022-11-06 03:56 | PC.NURSE ---
Pt. iv changed and he now has a 20g in the left ac. He got a total of 2 pain pills on my shift. No other changes noted.
[2022-11-06 07:30] LABS: Basophils # 0.1 K/mm3 (0-0.2); Basophils % 0.6 % (0.1-2.0); Eosinophils # 0.4 K/mm3 (0.0-0.4); Eosinophils % 3.2 % (0.1-12.0); Hematocrit 33.7 % (42.0-52.0); Hemoglobin 10.8 g/dL (14.1-18.0); Lymphocytes % 17.7 % (10-50); Mean Corpuscular HGB Conc 32.1 g/dL (31.8-35.4); Mean Corpuscular Volume 93.5 fl (80-94); Mean Platelet Volume 8.9 fl (7.4-10.4); Monocytes # 0.6 K/mm3 (0.1-1.0); Monocytes % 5.4 % (1.7-9.3); Neutrophils # 8.3 K/mm3 (1.8-7.8); Neutrophils % 73.1 % (37.0-80.0); Platelet Count 384 K/mm3 (142-424); Red Blood Count 3.61 M/mm3 (4.60-6.20); White Blood Count 11.3 K/mm3 (4.8-10.8)
[2022-11-06 07:43] LABS: Alanine Aminotransferase 39 U/L (12-78); Albumin Level 2.7 g/dl (3.5-5.0); Alkaline Phosphatase 80 U/L (38-126); Anion Gap 6.5 mEq/L (5-15); Aspartate Amino Transferase 48 U/L (17-59); Bilirubin,Total 0.8 mg/dl (0.2-1.3); Blood Urea Nitrogen 22 mg/dl (9-20); Calcium 7.9 mg/dl (8.4-10.2); Carbon Dioxide 30 mmol/L (22.0-30.0); Chloride 109 mmol/L (98-107); Creatinine Clearance Estimated 95 mL/min (50-200); Estimated Glomerular Filt Rate 85 ml/min (>60); GFR (African American) 103 ML/MIN (>60); Globulin 2.8 g/dL (1.3-3.2); Glucose 99 mg/dl (74-100); Magnesium 2.5 mg/dl (1.6-2.3); Potassium 4.5 mmoL/L (3.5-5.1); Sodium 141 mmol/L (136-145); Total Protein,Serum 5.5 g/dl (6.3-8.2)
--- NOTE | 2022-11-06 11:51 | P.PN_ITS ---
Subjective Patient reports: no new complaints Exam Data for Last 24 hours Vital signs and Labs for Last 24 Hours: Temp Pulse Resp BP Pulse Ox FiO2 98.6 F 53 L 18 176/75 H 93 L 2 11/06/22 08:00 11/06/22 08:00 11/06/22 08:00 11/06/22 08:00 11/06/22 08:00 11/04/22 02:00 Laboratory Results - last 24 hr 11/06/22 07:09: WBC 11.3 H, RBC 3.61 L, Hgb 10.8 L, Hct 33.7 L, MCV 93.5, MCH 30.0, MCHC 32.1, RDW 13.0, Plt Count 384, MPV 8.9, Neut % (Auto) 73.1, Lymph % (Auto) 17.7, [place] % (Auto) 5.4, Eos % (Auto) 3.2, Baso % (Auto) 0.6, Neut # (Auto) 8.3 H, Lymph # (Auto) 2.0, [place] # (Auto) 0.6, Eos # (Auto) 0.4, Baso # (Auto) 0.1 11/06/22 07:09: Sodium 141, Potassium 4.5, Chloride 109 H, Carbon Dioxide 30, Anion Gap 6.5, BUN 22 H, Creatinine 0.90, Estimated Creat Clear 95, Estimated GFR 85, Est GFR ( Amer) 103, Glucose 99, Calcium 7.9 L, Magnesium 2.5 H, Total Bilirubin 0.8, AST 48, ALT 39, Alkaline Phosphatase 80, Total Protein 5.5 L, Albumin 2.7 L, Globulin 2.8, Albumin/Globulin Ratio 1.0 L I & O for Last 24 hours: Intake & Output 11/03/22 11/04/22 11/05/22 11/06/22 11:59 11:59 11:59 11:59 Intake Total 4402 / 4402 2857 / 2857 300 / 300 550 / 550 Output Total 800 / 800 1025 / 1025 6 / 6 625 / 625 Balance 3602 / 3602 1832 / 1832 294 / 294 -75 / -75 Weight 196 lb 9 oz 198 lb 7 oz 197 lb 14.4 oz 198 lb 3.2 oz Microbiology Reports for the Last 24 Hours: Microbiology 10/31/22 12:03 Blood Blood Culture - Final NO GROWTH AFTER 5 DAYS 10/31/22 12:03 Blood Blood Culture - Final NO GROWTH AFTER 5 DAYS *Routine Abdominal Exam Abdominal: Present soft and ostomy Comments: Gas and liquid stool from colostomy Progress Note: A&P Assessment and plan (1) Sepsis: Status: Acute (2) Abscess of sigmoid colon due to diverticulitis: Status: Acute Assessment and plan: clear liquid diet. (3) Mood disorder: Status: Chronic
[2022-11-06 14:51] LABS: Phosphorous 2.6 mg/dl (2.5-4.5)
--- NOTE | 2022-11-06 17:25 | PC.NURSE ---
Pt is alert and oriented x4. Bowel sounds were hyperactive x4. Dressing to midline incision is clean, dry and intact. Dark liquid stool and gas noted in colostomy, pt is emptying it independently. He had an episode of vomiting this afternoon. Vomitus was mucousy and dark with approx 250mls out. Zofran administered with some relief noted on reassessment. Pt ambulated in the yousif and was up to the chair this shift. He tolerated well. Family is currently at bedside. Bed is locked and in the lowest position, call light is within reach.
--- NOTE | 2022-11-06 17:40 | PC.NURSE ---
All documentation and care by Eric Mejia has been done under my direct supervision.
--- NOTE | 2022-11-06 19:36 | EXP.ACUTE.PN ---
Subjective *Date: 11/06/22 *Time: 10:36 Interval history: Patient did well overnight. Tolerating sips and chips. Having more output from his colostomy. Remains afebrile. No nausea or vomiting. No chest pain or shortness of breath Medical Exam Vital signs and Labs for Last 24 Hours: Vital Signs Temp Pulse Pulse Resp BP Pulse Ox 11/06/22 16:00 98.2 F 54 L 18 165/68 H 95 11/06/22 16:00 80 11/06/22 12:00 60 11/06/22 12:00 97.9 F 54 L 18 172/75 H 94 L 11/06/22 08:00 50 L 11/06/22 08:00 98.6 F 53 L 18 176/75 H 93 L 11/06/22 04:00 40 L 11/06/22 04:00 98.2 F 46 L 16 161/67 H 95 11/06/22 00:39 64 11/05/22 20:00 60 11/06/22 00:00 98.1 F 51 L 16 163/73 H 95 11/05/22 20:00 100 11/05/22 20:00 98.0 F 63 18 163/76 H 95 Intake and Output 11/06/22 11/06/22 11/06/22 07:59 15:59 23:59 Intake Total 100 / 780 360 / 780 320 / 780 Output Total 500 / 500 0 / 500 0 / 500 Balance -400 / 280 360 / 280 320 / 280 Intake: Intake, Oral Amount 360 / 480 120 / 480 Intake, Total IV Amount 100 / 300 200 / 300 Piperacillin/Tazo 4.5 gm In 0.9 100 / 300 200 / 300 % Sodium Chloride 100 ml @ 200 mls/hr IV Q6H [facility] Rx#:[id number] Output: Output, Urine Amount 500 / 500 0 / 500 0 / 500 Other: Number of Unmeasured Voids 1 1 Number of Bowel Movements 1 1 Weight 89.902 kg Patient Weight 11/06/22 23:59 Weight 89.902 kg Laboratory Results - last 24 hr 11/06/22 07:09: Phosphorus 2.6 D 11/06/22 07:09: WBC 11.3 H, RBC 3.61 L, Hgb 10.8 L, Hct 33.7 L, MCV 93.5, MCH 30.0, MCHC 32.1, RDW 13.0, Plt Count 384, MPV 8.9, Neut % (Auto) 73.1, Lymph % (Auto) 17.7, [place] % (Auto) 5.4, Eos % (Auto) 3.2, Baso % (Auto) 0.6, Neut # (Auto) 8.3 H, Lymph # (Auto) 2.0, [place] # (Auto) 0.6, Eos # (Auto) 0.4, Baso # (Auto) 0.1 11/06/22 07:09: Sodium 141, Potassium 4.5, Chloride 109 H, Carbon Dioxide 30, Anion Gap 6.5, BUN 22 H, Creatinine 0.90, Estimated Creat Clear 95, Estimated GFR 85, Est GFR ( Amer) 103, Glucose 99, Calcium 7.9 L, Magnesium 2.5 H, Total Bilirubin 0.8, AST 48, ALT 39, Alkaline Phosphatase 80, Total Protein 5.5 L, Albumin 2.7 L, Globulin 2.8, Albumin/Globulin Ratio 1.0 L I & O for Labs for Last 24 Hours: Intake & Output 11/03/22 11/04/22 11/05/22 11/06/22 23:59 23:59 23:59 23:59 Intake Total 2244 / 2244 1815 / 1815 550 / 550 780 / 780 Output Total 1200 / 1200 625 / 625 131 / 281 500 / 500 Balance 1044 / 1044 1190 / 1190 419 / 269 280 / 280 Weight 89.159 kg 90.01 kg 89.766 kg 89.902 kg Constitutional: Present no acute distress Head: Present atraumatic and normocephalic ENT: Present normal exam Neck: Present normal inspection Respiratory: Present crackles (In bilateral bases) and normal respiratory effort; Absent accessory muscle use, rhonchi or wheezes Cardiac: Present Reg Rate and Rhythm GI: Present soft, tenderness (Mild nonfocal tenderness) and normal bowel sounds; Absent distention Comments:: ostomy, sanginous output, gas in bag Extremities: Present normal inspection and full ROM Skin: Present intact; Absent erythema Neuro: Present Grossly Intact and moves all extremities Assessment and Plan *Assessment and plan (1) Abscess of sigmoid colon due to diverticulitis: Status: Acute Category: Medical Code(s): K57.20 - Diverticulitis of large intestine with perforation and abscess without bleeding (2) Colostomy in place: Status: Acute Category: Medical Code(s): Z93.3 - Colostomy status (3) Sepsis: Status: Acute Qualifiers: Sepsis type: sepsis due to unspecified organism Sepsis acute organ dysfunction status: without acute organ dysfunction Qualified Code(s): A41.9 - Sepsis, unspecified organism Category: Medical Code(s): A41.9 - Sepsis, unspecified organism (4) Mood disorder: Status: Chronic Category: Medical Code(s):
[2022-11-07] VITALS (9 sets, daily range): BP systolic 128–182; BP diastolic 59–91; PULSE 40–80; RESP 17–18; TEMP 36.9–37.1; O2SAT 93–97; BMI 26.0
--- NOTE | 2022-11-07 02:23 | ECG_ITS ---
APPROVED REPORT Exam: Resting ECG HR:50 bpm ECG Measurements Heart Rate 50 AXES ND 149 P 41 QRSd 109 QRS 58 QT 519 T 64 QTc 494 Conclusion SINUS BRADYCARDIA PROLONGED QT INTERVAL ABNORMAL ECG UNCONFIRMED REPORT Electronically signed by : Antonio Blood MD 11/08/2022 02:54:10
--- NOTE | 2022-11-07 05:38 | PC.NURSE ---
pt is A&OX4. episodes of n/v x2, zofran given prn per mar with favorable results. no complaints of pain this shift. pt. ambulates in room independently. dark drainage noted in colostomy, pt. changes colostomy independently, callbell in reach
[2022-11-07 06:53] LABS: Basophils # 0.1 K/mm3 (0-0.2); Basophils % 0.8 % (0.1-2.0); Eosinophils # 0.3 K/mm3 (0.0-0.4); Eosinophils % 2.7 % (0.1-12.0); Hematocrit 34.7 % (42.0-52.0); Hemoglobin 11.2 g/dL (14.1-18.0); Lymphocytes # 1.9 K/mm3 (0.7-4.5); Lymphocytes % 14.8 % (10-50); Mean Corpuscular HGB Conc 32.1 g/dL (31.8-35.4); Mean Corpuscular Hemoglobin 30.7 pg (27.0-31.2); Mean Corpuscular Volume 95.6 fl (80-94); Mean Platelet Volume 9.5 fl (7.4-10.4); Monocytes # 0.7 K/mm3 (0.1-1.0); Monocytes % 5.8 % (1.7-9.3); Neutrophils # 9.5 K/mm3 (1.8-7.8); Neutrophils % 75.8 % (37.0-80.0); Platelet Count 494 K/mm3 (142-424); Red Blood Count 3.64 M/mm3 (4.60-6.20); White Blood Count 12.5 K/mm3 (4.8-10.8)
[2022-11-07 07:03] LABS: Chloride 107 mmol/L (98-107); Potassium 4.1 mmoL/L (3.5-5.1); Sodium 141 mmol/L (136-145)
[2022-11-07 07:05] LABS: Blood Urea Nitrogen 18 mg/dl (9-20); Creatinine Clearance Estimated 92 mL/min (50-200); Estimated Glomerular Filt Rate 85 ml/min (>60); GFR (African American) 103 ML/MIN (>60)
[2022-11-07 07:06] LABS: Alanine Aminotransferase 33 U/L (12-78); Albumin Level 2.8 g/dl (3.5-5.0); Albumin/Globulin Ratio 0.9 (1.1-1.8); Alkaline Phosphatase 75 U/L (38-126); Anion Gap 12.1 mEq/L (5-15); Aspartate Amino Transferase 34 U/L (17-59); Bilirubin,Total 0.7 mg/dl (0.2-1.3); Calcium 8.3 mg/dl (8.4-10.2); Carbon Dioxide 26 mmol/L (22.0-30.0); Globulin 3.2 g/dL (1.3-3.2); Glucose 98 mg/dl (74-100)
--- NOTE | 2022-11-07 07:17 | EXP.SURG.PN ---
Subjective Narrative: Patient tolerated clear liquids yesterday. He awoke this morning complaining of some gastrointestinal irritability and nausea. Patient subsequently began vomiting. Exam Data for Last 24 hours Vital signs and Labs for Last 24 Hours: Temp Pulse Resp BP Pulse Ox FiO2 98.8 F 50 L 18 182/72 H 95 2 11/07/22 04:00 11/07/22 04:00 11/07/22 04:00 11/07/22 04:00 11/07/22 04:00 11/04/22 02:00 Laboratory Results - last 24 hr 11/06/22 07:09: Phosphorus 2.6 D 11/06/22 07:09: WBC 11.3 H, RBC 3.61 L, Hgb 10.8 L, Hct 33.7 L, MCV 93.5, MCH 30.0, MCHC 32.1, RDW 13.0, Plt Count 384, MPV 8.9, Neut % (Auto) 73.1, Lymph % (Auto) 17.7, [place] % (Auto) 5.4, Eos % (Auto) 3.2, Baso % (Auto) 0.6, Neut # (Auto) 8.3 H, Lymph # (Auto) 2.0, [place] # (Auto) 0.6, Eos # (Auto) 0.4, Baso # (Auto) 0.1 11/06/22 07:09: Sodium 141, Potassium 4.5, Chloride 109 H, Carbon Dioxide 30, Anion Gap 6.5, BUN 22 H, Creatinine 0.90, Estimated Creat Clear 95, Estimated GFR 85, Est GFR ( Amer) 103, Glucose 99, Calcium 7.9 L, Magnesium 2.5 H, Total Bilirubin 0.8, AST 48, ALT 39, Alkaline Phosphatase 80, Total Protein 5.5 L, Albumin 2.7 L, Globulin 2.8, Albumin/Globulin Ratio 1.0 L 11/07/22 06:45: Sodium 141, Potassium 4.1, Chloride 107, Carbon Dioxide 26, Anion Gap 12.1, BUN 18, Creatinine 0.90, Estimated Creat Clear 92, Estimated GFR 85, Est GFR ( Amer) 103, Glucose 98, Calcium 8.3 L, Total Bilirubin 0.7, AST 34 D, ALT 33, Alkaline Phosphatase 75, Total Protein 6.0 L, Albumin 2.8 L, Globulin 3.2, Albumin/Globulin Ratio 0.9 L 11/07/22 06:45: WBC 12.5 H, RBC 3.64 L, Hgb 11.2 L, Hct 34.7 L, MCV 95.6 H, MCH 30.7, MCHC 32.1, RDW 13.0, Plt Count 494 H D, MPV 9.5, Neut % (Auto) 75.8, Lymph % (Auto) 14.8, [place] % (Auto) 5.8, Eos % (Auto) 2.7, Baso % (Auto) 0.8, Neut # (Auto) 9.5 H, Lymph # (Auto) 1.9, [place] # (Auto) 0.7, Eos # (Auto) 0.3, Baso # (Auto) 0.1 I & O for Last 24 hours: Intake & Output 11/04/22 11/05/22 11/06/22 11/07/22 11:59 11:59 11:59 11:59 Intake Total 2857 / 2857 300 / 300 550 / 550 880 / 880 Output Total 1025 / 1025 6 / 6 625 / 625 100 / 100 Balance 1832 / 1832 294 / 294 -75 / -75 780 / 780 Weight 198 lb 7 oz 197 lb 14.4 oz 198 lb 3.2 oz 192 lb 8 oz *Routine Abdominal Exam Abdominal: Present soft and ostomy Progress Note: A&P Assessment and plan (1) Abscess of sigmoid colon due to diverticulitis: Status: Acute Assessment and plan: Likely has ongoing ileus. (2) Colostomy in place: Status: Acute (3) Sepsis: Status: Acute (4) Mood disorder: Status: Chronic
[2022-11-07 07:23] LABS: Magnesium 2.2 mg/dl (1.6-2.3); Phosphorous 3.6 mg/dl (2.5-4.5)
--- NOTE | 2022-11-07 08:11 | EXP.ACUTE.PN ---
Subjective *Date: 11/07/22 *Time: 18:04 Interval history: Still having emesis and nausea. Has an appetite. No abdominal pain. Having ostomy output. Medical Exam Vital signs and Labs for Last 24 Hours: Vital Signs Temp Pulse Pulse Resp BP BP Pulse Ox 11/07/22 07:59 98.8 F 44 L 18 128/59 L 97 11/07/22 00:00 50 L 11/07/22 04:00 40 L 11/07/22 04:00 98.8 F 50 L 18 182/72 H 95 11/06/22 20:00 100 H 11/07/22 00:00 98.5 F 56 L 18 180/76 H 93 L 11/06/22 20:00 98.4 F 52 L 18 168/78 H 95 11/06/22 16:00 98.2 F 54 L 18 165/68 H 95 11/06/22 16:00 80 11/06/22 12:00 60 11/06/22 12:00 97.9 F 54 L 18 172/75 H 94 L Intake and Output 11/06/22 11/07/22 11/07/22 23:59 07:59 15:59 Intake Total 320 / 980 200 / 200 Output Total 0 / 600 100 / 100 Balance 320 / 380 100 / 100 Intake: Intake, Oral Amount 120 / 480 Intake, Total IV Amount 200 / 500 200 / 200 Piperacillin/Tazo 4.5 gm In 0.9 200 / 500 200 / 200 % Sodium Chloride 100 ml @ 200 mls/hr IV Q6H [facility] Rx#:[id number] Output: Output, Urine Amount 0 / 500 Output, Emesis Amount 100 / 100 Other: Number of Unmeasured Voids 1 Weight 87.317 kg Patient Weight 11/07/22 23:59 Weight 87.317 kg Laboratory Results - last 24 hr 11/06/22 07:09: Phosphorus 2.6 D 11/07/22 06:45: Sodium 141, Potassium 4.1, Chloride 107, Carbon Dioxide 26, Anion Gap 12.1, BUN 18, Creatinine 0.90, Estimated Creat Clear 92, Estimated GFR 85, Est GFR ( Amer) 103, Glucose 98, Calcium 8.3 L, Total Bilirubin 0.7, AST 34 D, ALT 33, Alkaline Phosphatase 75, Total Protein 6.0 L, Albumin 2.8 L, Globulin 3.2, Albumin/Globulin Ratio 0.9 L 11/07/22 06:45: WBC 12.5 H, RBC 3.64 L, Hgb 11.2 L, Hct 34.7 L, MCV 95.6 H, MCH 30.7, MCHC 32.1, RDW 13.0, Plt Count 494 H D, MPV 9.5, Neut % (Auto) 75.8, Lymph % (Auto) 14.8, [place] % (Auto) 5.8, Eos % (Auto) 2.7, Baso % (Auto) 0.8, Neut # (Auto) 9.5 H, Lymph # (Auto) 1.9, [place] # (Auto) 0.7, Eos # (Auto) 0.3, Baso # (Auto) 0.1 11/07/22 06:45: Phosphorus 3.6 D, Magnesium 2.2 D I & O for Labs for Last 24 Hours: Intake & Output 11/04/22 11/05/22 11/06/22 11/07/22 23:59 23:59 23:59 23:59 Intake Total 1815 / 1815 550 / 550 780 / 980 200 / 200 Output Total 625 / 625 131 / 281 500 / 600 100 / 100 Balance 1190 / 1190 419 / 269 280 / 380 100 / 100 Weight 90.01 kg 89.766 kg 89.902 kg 87.317 kg Constitutional: Present no acute distress Head: Present atraumatic and normocephalic ENT: Present normal exam Neck: Present normal inspection Respiratory: Present crackles (In bilateral bases) and normal respiratory effort; Absent accessory muscle use, rhonchi or wheezes Cardiac: Present Reg Rate and Rhythm GI: Present soft, tenderness (Mild nonfocal tenderness) and normal bowel sounds; Absent distention Comments:: ostomy stool output Extremities: Present normal inspection and full ROM Skin: Present intact; Absent erythema Neuro: Present Grossly Intact and moves all extremities Assessment and Plan *Assessment and plan (1) Abscess of sigmoid colon due to diverticulitis: Status: Acute Category: Medical Code(s): K57.20 - Diverticulitis of large intestine with perforation and abscess without bleeding (2) Colostomy in place: Status: Acute Category: Medical Code(s): Z93.3 - Colostomy status (3) Sepsis: Status: Acute Qualifiers: Sepsis acute organ dysfunction status: without acute organ dysfunction Sepsis type: sepsis due to unspecified organism Qualified Code(s): A41.9 - Sepsis, unspecified organism Category: Medical Code(s): A41.9 - Sepsis, unspecified organism (4) Mood disorder: Status: Chronic Category: Medical Code(s): F39 - Unspecified mood [affective] disorder Plan 62-year-old male who presented with abdominal pain, found to have diverticulitis with questiona
--- NOTE | 2022-11-07 08:15 | XR_ITS ---
FINAL REPORT CLINICAL HISTORY: ileus COMPARISON: none FINDINGS: A single supine view of the abdomen was obtained. There is no prior for comparison. The bowel gas pattern is nonspecific, but nonobstructive. There is an overall paucity of bowel gas in the abdomen with only 1 prominent single small bowel loop in the left upper quadrant. There are no pathologic calcifications. Osseous structures are within normal limits. Midline surgical skin tracie are noted. IMPRESSION: Nonspecific nonobstructive bowel gas pattern. Reviewed, Interpreted and Dictated by Nannette Gutierrez MD Transcribed by Nellie Anderson Authenticated and [facility]
--- NOTE | 2022-11-07 09:51 | HMH.PTEV ---
Physical Therapy Evaluation Rehab PT IP Evaluation Start: 11/07/22 08:15 Freq: .once Status: Active Protocol: Document 11/07/22 09:47 VARUN (Rec: 11/07/22 09:51 VARUN [id number]) Subjective/History History History 62 yowm adm to [facility] with diverticulitis resulting in abd pain. Now S/P ex-lap with end colostomy performed . He reports he lives with spouse, ramp to enter the home and he is generally independent with all mobility without AD prior to adm. Subjective Subjective He reports general weakness and post-op soreness, but agrees to mobility assessment. Rehab PT IP Eval Objective Appearance Patient Behavior Appropriate Patient Orientation Person,Place,Time Difficulty following instructions none Speech Pattern Clear Ambulation Patient Able to Ambulate Yes Ambulation Observation IP General Gait Pattern Observation No Deviations/Normal Ambulation Distance (feet) 20 Ambulation Assistive Device None Ambulation Ability Independent Balance Ability to Arise Able, uses arms to help Sitting Balance Steady, safe Standing Balance Steady, wide stance Dynamic Sitting Balance Ability Good Dynamic Standing Balance Ability Good Transfers Bed Transfer Ability Independent Chair Transfer Ability Independent Sit to Stand Bed Transfer Ability Independent Sit to Stand Chair Transfer Ability Independent ROM All Extremities PT ROM Status WFL MMT All Extremities PT MMT WFL Rehab PT IP prob,goals,plan Problems Date of Evaluation: 11/07/22 Discharge Plan PT Discharge Plan Pt is currently independent with all mobility and is appropriate to return home once medically stable for d/c. G -code Required No Eval Complexity Eval Charge Codes 78643 - Moderate Complexity PHYSICIAN CERTIFICATION: I certify the specified therapy services for Mariano Blackburn are required, authorized, and reviewed every 30 days.
--- NOTE | 2022-11-07 15:07 | P.PN_ITS ---
Subjective Narrative: I went back in and saw the patient at lunchtime today. Patient states that he is having difficulty keeping anything down . Exam Data for Last 24 hours Vital signs and Labs for Last 24 Hours: Temp Pulse Resp BP Pulse Ox FiO2 98.5 F 64 17 177/91 H 96 2 11/07/22 15:00 11/07/22 15:00 11/07/22 15:00 11/07/22 15:00 11/07/22 15:00 11/04/22 02:00 Laboratory Results - last 24 hr 11/07/22 06:45: Sodium 141, Potassium 4.1, Chloride 107, Carbon Dioxide 26, Anion Gap 12.1, BUN 18, Creatinine 0.90, Estimated Creat Clear 92, Estimated GFR 85, Est GFR ( Amer) 103, Glucose 98, Calcium 8.3 L, Total Bilirubin 0.7, AST 34 D, ALT 33, Alkaline Phosphatase 75, Total Protein 6.0 L, Albumin 2.8 L, Globulin 3.2, Albumin/Globulin Ratio 0.9 L 11/07/22 06:45: WBC 12.5 H, RBC 3.64 L, Hgb 11.2 L, Hct 34.7 L, MCV 95.6 H, MCH 30.7, MCHC 32.1, RDW 13.0, Plt Count 494 H D, MPV 9.5, Neut % (Auto) 75.8, Lymph % (Auto) 14.8, [place] % (Auto) 5.8, Eos % (Auto) 2.7, Baso % (Auto) 0.8, Neut # (Auto) 9.5 H, Lymph # (Auto) 1.9, [place] # (Auto) 0.7, Eos # (Auto) 0.3, Baso # (Auto) 0.1 11/07/22 06:45: Phosphorus 3.6 D, Magnesium 2.2 D I & O for Last 24 hours: Intake & Output 11/05/22 11/06/22 11/07/22 11/08/22 11:59 11:59 11:59 11:59 Intake Total 300 / 300 550 / 550 1120 / 1120 120 / 120 Output Total 6 / 6 625 / 625 100 / 100 300 / 300 Balance 294 / 294 -75 / -75 1020 / 1020 -180 / -180 Weight 197 lb 14.4 oz 198 lb 3.2 oz 192 lb 8 oz *Routine Abdominal Exam Comments: Abdomen soft with viable ostomy. Digital examination performed of ostomy. Progress Note: A&P Assessment and plan (1) Abscess of sigmoid colon due to diverticulitis: Status: Acute (2) Colostomy in place: Status: Acute (3) Sepsis: Status: Acute (4) Mood disorder: Status: Chronic Assessment and Plan Assessment and Plan for All Diagnoses:: Patient has had ongoing refractory violent emesis refractory to antiemetics. We will plan to place nasogastric tube and make him n.p.o. once again.
--- NOTE | 2022-11-07 16:09 | PC.NURSE ---
A&OX4. TOLERATING RA WELL. PT HAS BEEN VOMITING Q2H THUS FAR THIS SHIFT, TX PER OCT. DARK BROWN BILE PRESENT, ABOUT 100ML OUT EACH TIME. HAS ORDERED NPO EXCEPT ICE CHIPS, AND NG TUBE INSERTION. THIS NURSE ALONG WITH Jere BELTRAN RN ATTEMPTED TO INSERT NG TUBE. PT DID NOT TOLERATE. BEGAN VOMITING. DR BABCOCK MADE AWARE, NNO, BUT TO KEEP PT NPO AT THIS TIME. PT HAS BEEN UP INDEPENDENTLY IN ROOM T/O SHIFT. OSTOMY BAG AND MIDLINE DX CHANGED THIS SHIFT D/T OSTOMY LEAKING ONTO MIDLINE DX. PT TOLERATED WELL. NEW DX AND OSTOMY CDI. PT IS HAVING DARK GREEN/BROWN BILE DRAIN FROM OSTOMY. STOMA PINK IN COLOR. NO OTHER NEEDS OR C/O NOTED AT THIS TIME, VSS.
[2022-11-08] VITALS (7 sets, daily range): BP systolic 131–162; BP diastolic 68–83; PULSE 50–97; RESP 16–18; TEMP 36.3–37; O2SAT 92–96
--- NOTE | 2022-11-08 04:30 | PC.NURSE ---
PATIENT NOTED TO HAVE MULTIPLE EPISODE OF VOMITING DURING THE NIGHT. PATIENT'S NURSE ANISH STATED HE HAD BEEN MEDICATED MULTIPLE TIMES AND CONTINUES TO VOMIT. PATIENT AGREED TO ALLOW ANOTHER ATTEMPT TO PLACE NG TUBE. NG TUBE ANCHORED PLACED TO LWS WITH IMMEDIATE RETURN OF 250 ML DARK DRAINAGE. PATIENT TOLERATED FAIR. ORDER FOR XRAY FOR PLACEMENT.
--- NOTE | 2022-11-08 04:54 | XR_ITS ---
PROCEDURE INFORMATION: Exam: XR Chest Exam date and time: 11/08/2022 4:58 AM Age: 62 years old Clinical indication: Device placement; Ng tube; Additional info: Confirm ng placement TECHNIQUE: Imaging protocol: Radiologic exam of the chest. Views: 1 view. COMPARISON: CR XR CHEST PORTABLE 10/31/2022 12:14 PM FINDINGS: Tubes, catheters and devices: The NG tube coiled in the stomach. Lungs: Unremarkable. No consolidation. Pleural spaces: Unremarkable. No pleural effusion. No pneumothorax. Heart/Mediastinum: Unremarkable. No cardiomegaly. Bones/joints: Unremarkable. IMPRESSION: NG tube coiled in stomach.
--- NOTE | 2022-11-08 06:12 | EXP.SURG.PN ---
Subjective Narrative: Patient has had intractable significant vomiting overnight. Plan was for nasogastric tube yesterday afternoon but initially the patient refused. However overnight due to ongoing persistent vomiting he ultimately just recently had nasogastric tube successfully placed. Exam Data for Last 24 hours Vital signs and Labs for Last 24 Hours: Temp Pulse Resp BP Pulse Ox FiO2 98.2 F 67 18 159/76 H 93 L 2 11/08/22 04:00 11/08/22 04:00 11/08/22 04:00 11/08/22 04:00 11/08/22 04:00 11/04/22 02:00 Laboratory Results - last 24 hr 11/07/22 06:45: Sodium 141, Potassium 4.1, Chloride 107, Carbon Dioxide 26, Anion Gap 12.1, BUN 18, Creatinine 0.90, Estimated Creat Clear 92, Estimated GFR 85, Est GFR ( Amer) 103, Glucose 98, Calcium 8.3 L, Total Bilirubin 0.7, AST 34 D, ALT 33, Alkaline Phosphatase 75, Total Protein 6.0 L, Albumin 2.8 L, Globulin 3.2, Albumin/Globulin Ratio 0.9 L 11/07/22 06:45: WBC 12.5 H, RBC 3.64 L, Hgb 11.2 L, Hct 34.7 L, MCV 95.6 H, MCH 30.7, MCHC 32.1, RDW 13.0, Plt Count 494 H D, MPV 9.5, Neut % (Auto) 75.8, Lymph % (Auto) 14.8, [place] % (Auto) 5.8, Eos % (Auto) 2.7, Baso % (Auto) 0.8, Neut # (Auto) 9.5 H, Lymph # (Auto) 1.9, [place] # (Auto) 0.7, Eos # (Auto) 0.3, Baso # (Auto) 0.1 11/07/22 06:45: Phosphorus 3.6 D, Magnesium 2.2 D I & O for Last 24 hours: Intake & Output 11/05/22 11/06/22 11/07/22 11/08/22 11:59 11:59 11:59 11:59 Intake Total 300 / 300 550 / 550 1120 / 1120 120 / 120 Output Total 6 / 6 625 / 625 100 / 100 600 / 600 Balance 294 / 294 -75 / -75 1020 / 1020 -480 / -480 Weight 197 lb 14.4 oz 198 lb 3.2 oz 192 lb 8 oz *Routine Abdominal Exam Abdominal: Present soft Comments: Abdomen is without significant distention or tenderness. There is issues with the colostomy output leaking into the wound. Ostomy viable with liquid output. Progress Note: A&P Assessment and plan (1) Abscess of sigmoid colon due to diverticulitis: Status: Acute Assessment and plan: Fortunately patient has ongoing severe vomiting with intolerance of oral intake. Likely significant ileus. Could require PICC line placement and TPN for now. Will consider abdominal imaging. (2) Colostomy in place: Status: Acute (3) Sepsis: Status: Acute (4) Mood disorder: Status: Chronic
[2022-11-08 06:30] LABS: Alanine Aminotransferase 31 U/L (12-78); Albumin Level 2.9 g/dl (3.5-5.0); Alkaline Phosphatase 73 U/L (38-126); Anion Gap 9.7 mEq/L (5-15); Aspartate Amino Transferase 32 U/L (17-59); Bilirubin,Total 0.6 mg/dl (0.2-1.3); Blood Urea Nitrogen 18 mg/dl (9-20); Calcium 8.3 mg/dl (8.4-10.2); Carbon Dioxide 28 mmol/L (22.0-30.0); Chloride 106 mmol/L (98-107); Creatinine Clearance Estimated 92 mL/min (50-200); Estimated Glomerular Filt Rate 97 ml/min (>60); GFR (African American) 118 ML/MIN (>60); Glucose 94 mg/dl (74-100); Potassium 3.7 mmoL/L (3.5-5.1); Sodium 140 mmol/L (136-145); Total Protein,Serum 5.9 g/dl (6.3-8.2)
--- NOTE | 2022-11-08 08:57 | XR_ITS ---
FINAL REPORT CLINICAL HISTORY: Confirm PICC line placement FINDINGS: A portable view of the chest was obtained. Comparison is made to a prior exam dated 11/08/2022. A new left PICC line is present with its tip in the right atrium. An NG tube is present with its tip below the diaphragm. Cardiac and mediastinal silhouettes are within normal limits. There are new bibasilar opacities, left greater than right, favor atelectasis but pneumonia is not excluded. There is no pleural effusion or pneumothorax. IMPRESSION: New left PICC line with its tip in the right atrium. Bibasilar opacities favor atelectasis but pneumonia not excluded. Reviewed, Interpreted and Dictated by Nannette Gutierrez MD Transcribed by Rere White Authenticated and [facility]
[2022-11-08 09:54] LABS: Chol/HDL Ratio 8.7 (1-3.5); Cholesterol 122 mg/dl (140-200); HDL Cholesterol 14 mg/dl (40-60); Triglycerides 157 mg/dl (30-150); VLDL Cholesterol 31 mg/dL (0-40)
[2022-11-08 10:04] LABS: Direct LDL Cholesterol 79.63 mg/dL (100-129)
--- NOTE | 2022-11-08 10:11 | DIET.NUTRFU ---
Pt with ongoing severe vomiting with intolerance of oral intake per MD progress note. Pt with little significant nutrition since admission. Spoke with Lester, Pharmacist, and agree with plan for calorie/protein requirements for TPN. Will continue to monitor.
[2022-11-08 11:30] LABS: POC Glucose,Bedside 98 (70-110)
--- NOTE | 2022-11-08 13:28 | EXP.ACUTE.PN ---
Subjective *Date: 11/08/22 *Time: 13:28 Interval history: vomiting all night. NG placed. Medical Exam Vital signs and Labs for Last 24 Hours: Vital Signs Temp Pulse Pulse Resp BP BP Pulse Ox 11/08/22 12:00 97.4 F L 60 16 155/83 H 93 L 11/08/22 08:00 98.5 F 65 16 131/74 96 11/08/22 04:00 70 11/07/22 20:00 60 11/08/22 00:00 97 H 11/08/22 04:00 98.2 F 67 18 159/76 H 93 L 11/08/22 00:00 98.5 F 61 18 155/78 H 95 11/07/22 20:00 98.8 F 64 18 148/71 H 93 L 11/07/22 16:00 66 11/07/22 15:00 98.5 F 64 17 177/91 H 96 Intake and Output 11/07/22 11/08/22 11/08/22 23:59 07:59 15:59 Output Total 0 / 550 650 / 650 Balance 0 / 10 -650 / -650 Output: Output, Urine Amount 0 / 150 300 / 300 Output, Gastric Drainage Amount 350 / 350 Right Nare 350 / 350 Other: Number of Unmeasured Voids 1 Laboratory Results - last 24 hr 11/08/22 05:48: Sodium 140, Potassium 3.7, Chloride 106, Carbon Dioxide 28, Anion Gap 9.7, BUN 18, Creatinine 0.80, Estimated Creat Clear 92, Estimated GFR 97, Est GFR ( Amer) 118, Glucose 94, Calcium 8.3 L, Total Bilirubin 0.6, AST 32, ALT 31, Alkaline Phosphatase 73, Total Protein 5.9 L, Albumin 2.9 L, Globulin 3.0, Albumin/Globulin Ratio 1.0 L 11/08/22 05:48: Triglycerides 157 H, Cholesterol 122 L, LDL Cholesterol Direct 79.63 L, VLDL Cholesterol 31, HDL Cholesterol 14 L, Cholesterol/HDL Ratio 8.7 H 11/08/22 11:12: POC Glucose 98 I & O for Labs for Last 24 Hours: Intake & Output 11/05/22 11/06/22 11/07/22 11/08/22 23:59 23:59 23:59 23:59 Intake Total 550 / 550 780 / 980 560 / 560 Output Total 131 / 281 500 / 600 400 / 550 650 / 650 Balance 419 / 269 280 / 380 160 / 10 -650 / -650 Weight 89.766 kg 89.902 kg 87.317 kg Constitutional: Present no acute distress Head: Present atraumatic and normocephalic ENT: Present normal exam Comment:: NG in place Neck: Present normal inspection Respiratory: Present crackles (In bilateral bases) and normal respiratory effort; Absent accessory muscle use, rhonchi or wheezes Cardiac: Present Reg Rate and Rhythm GI: Present soft, tenderness (Mild nonfocal tenderness) and normal bowel sounds; Absent distention Comments:: ostomy stool output Extremities: Present normal inspection and full ROM Skin: Present intact; Absent erythema Neuro: Present Grossly Intact and moves all extremities Assessment and Plan *Assessment and plan (1) Abscess of sigmoid colon due to diverticulitis: Status: Acute Category: Medical Code(s): K57.20 - Diverticulitis of large intestine with perforation and abscess without bleeding (2) Colostomy in place: Status: Acute Category: Medical Code(s): Z93.3 - Colostomy status (3) Sepsis: Status: Acute Qualifiers: Sepsis type: sepsis due to unspecified organism Sepsis acute organ dysfunction status: without acute organ dysfunction Qualified Code(s): A41.9 - Sepsis, unspecified organism Category: Medical Code(s): A41.9 - Sepsis, unspecified organism (4) Mood disorder: Status: Chronic Category: Medical Code(s): F39 - Unspecified mood [affective] disorder Plan 62-year-old male who presented with abdominal pain, found to have diverticulitis with questionable abscess formation. Diverticulitis perforated 11/02 to the OR for emergent laparotomy and ostomy formation. continuation of ileus, NG in place, no PO intake in about a week will start TPN Sepsis-resolved diverticuloitis complicated by perforation s/p laparotmy with ostomy on 11/02 Abscess of sigmoid colon -Surgery consulted, appreciate their recommendations.? Continue Zosyn for total 1 week. Having output including gas from colostomy. Advance to clear liquids. If tolerates well, will advance to full liquids. -Discontinue oxycodone, continue Tylenol 3 -Advance to clear liquid diet - Ambulate as tolerated
--- NOTE | 2022-11-08 16:37 | PC.NURSE ---
A&OX4. TOLERATING RA WELL. PT HAS BEEN VERY TIRED AND DOWN THIS SHIFT. FAMILY AT BEDSIDE INTERMITTENTLY. NG TO L NARE, DRAINING DARK GREEN CONTENTS. COLOSTOMY CDI, DRAINING SMALL AMOUNTS OF DARK GREEN CONTENTS WELL. PT TOLERATED PICC LINE INSERTION WELL. HAS HAD ONLY A COUPLE BOUTS OF NA/VO THIS SHIFT. TX PER OCT. PT HAS SLEPT INTERMITTENTLY. GOWN AND BED LINENS CHANGED. PT UP INDEPENDENTLY TO BATHROOM. TOLERATES WELL. NO NEEDS OR C/O NOTED AT THIS TIME. AWAITING PICC LINE PLACEMENT CONFORMATION TO BEGIN TPN. VSS.
--- NOTE | 2022-11-08 17:15 | PC.NURSE ---
CXR reviewed. PICC line pulled back 2 cm w/ 2 cm of PICC exposed at insertion site. New order for stat CXR placed. Awaiting results prior to use of PICC.
--- NOTE | 2022-11-08 17:18 | XR_ITS ---
PROCEDURE INFORMATION: Exam: XR Chest Exam date and time: 11/08/2022 5:37 PM Age: 62 years old Clinical indication: Device placement; Picc; Additional info: Picc line placement TECHNIQUE: Imaging protocol: Radiologic exam of the chest. Views: 1 view. COMPARISON: CR XR CHEST PORTABLE PICC PLAC 11/08/2022 3:33 PM FINDINGS: Tubes, catheters and devices: Left upper extremity PICC appears to be in good position with the tip in the superior vena cava. Esophagogastric tube remains in good position with the tip and side port in the stomach. Lungs: Unremarkable. No consolidation. Pleural spaces: Unremarkable. No pleural effusion. No pneumothorax. Heart/Mediastinum: Unremarkable. No cardiomegaly. Bones/joints: Unremarkable. IMPRESSION: Appropriate position of the left upper extremity PICC and esophagogastric tube
[2022-11-08 20:45] LABS: POC Glucose,Bedside 90 (70-110)
--- NOTE | 2022-11-08 21:55 | PC.NURSE ---
PT'S PO MEDS HELD FOR 2100 DUE TO PRESENCE OF NAUSEA AND VOMITING
[2022-11-09] VITALS (9 sets, daily range): BP systolic 138–150; BP diastolic 67–79; PULSE 60–83; RESP 17–18; TEMP 36.7–37.4; O2SAT 90–94; BMI 24.0
--- NOTE | 2022-11-09 04:53 | PC.NURSE ---
NO ACUTE CHANGES THIS SHIFT. PT CONTINUES TO HAVE EPISODES OF NAUSEA WITH VOMITING. NG REMAINS IN PLACE TO THE LEFT NARE TO LOW WALL SUCTION. PRN NAUSEA MEDS GIVEN X3 SO FAR THIS SHIFT. PT HAS HAD NO OTHER COMPLAINTS THIS SHIFT. TPN RUNNING AND PT IS TOLERATING WELL. VSS.
[2022-11-09 06:50] LABS: POC Glucose,Bedside 135 (70-110)
[2022-11-09 08:31] LABS: Basophils # 0.1 K/mm3 (0-0.2); Basophils % 0.6 % (0.1-2.0); Eosinophils # 0.4 K/mm3 (0.0-0.4); Hematocrit 34.6 % (42.0-52.0); Lymphocytes # 1.6 K/mm3 (0.7-4.5); Lymphocytes % 11.4 % (10-50); Mean Corpuscular HGB Conc 31.8 g/dL (31.8-35.4); Mean Corpuscular Hemoglobin 29.9 pg (27.0-31.2); Mean Corpuscular Volume 94.1 fl (80-94); Mean Platelet Volume 8.9 fl (7.4-10.4); Monocytes # 0.7 K/mm3 (0.1-1.0); Monocytes % 4.8 % (1.7-9.3); Neutrophils # 11.3 K/mm3 (1.8-7.8); Neutrophils % 80.2 % (37.0-80.0); Platelet Count 561 K/mm3 (142-424); Red Blood Count 3.67 M/mm3 (4.60-6.20); Red Cell Distribution Width 12.9 % (11.5-17.5); White Blood Count 14.1 K/mm3 (4.8-10.8)
[2022-11-09 08:44] LABS: Chloride 105 mmol/L (98-107); Potassium 3.8 mmoL/L (3.5-5.1); Sodium 138 mmol/L (136-145)
[2022-11-09 08:47] LABS: Alanine Aminotransferase 29 U/L (12-78); Albumin Level 2.7 g/dl (3.5-5.0); Albumin/Globulin Ratio 0.9 (1.1-1.8); Alkaline Phosphatase 61 U/L (38-126); Anion Gap 7.8 mEq/L (5-15); Aspartate Amino Transferase 38 U/L (17-59); Bilirubin,Total 0.5 mg/dl (0.2-1.3); Blood Urea Nitrogen 19 mg/dl (9-20); Carbon Dioxide 29 mmol/L (22.0-30.0); Creatinine Clearance Estimated 85 mL/min (50-200); Estimated Glomerular Filt Rate 97 ml/min (>60); GFR (African American) 118 ML/MIN (>60); Glucose 140 mg/dl (74-100); Total Protein,Serum 5.7 g/dl (6.3-8.2)
--- NOTE | 2022-11-09 08:52 | PC.NURSE ---
courtesy tech note; rounded on pt, pt sleeping at this time, call light within reach, no further requests. K Jane, SRNA
[2022-11-09 09:03] LABS: Magnesium 2.2 mg/dl (1.6-2.3)
[2022-11-09 09:04] LABS: Phosphorous 2.9 mg/dl (2.5-4.5)
--- NOTE | 2022-11-09 10:08 | PC.NURSE ---
spoke with dr foster. he wants NG suction to be kept at at 60 or lower. if pt get ups to ambulate/br, okay to cap off NG tube and remove from suction.
--- NOTE | 2022-11-09 10:14 | CT_ITS ---
PROCEDURE INFORMATION: Exam: CT Abdomen And Pelvis With Contrast Exam date and time: 11/09/2022 11:15 AM Age: 62 years old Clinical indication: Nausea and vomiting; Additional info: Postoperative ileus; Leukocytosis TECHNIQUE: Imaging protocol: Computed tomography of the abdomen and pelvis with contrast. Radiation optimization: All CT scans at this facility use at least one of these dose optimization techniques: automated exposure control; mA and/or kV adjustment per patient size (includes targeted exams where dose is matched to clinical indication); or iterative reconstruction. Contrast material: ISOVUE; Contrast volume: 75 ml; Contrast route: IV; REPORTING DATA: Count of CT and Cardiac NM exams in prior 12 months: This patient has received 2 known CTs and 0 known cardiac nuclear medicine studies in the 12 months prior to the current study. COMPARISON: CT ABDOMEN PELVIS WO CON 11/02/2022 1:47 PM FINDINGS: Pleural spaces: Small bilateral pleural effusion and left lower lobe compressive atelectasis. Liver: No focal hepatic lesions. Gallbladder and bile ducts: There has been a cholecystectomy.No biliary ductal dilation. Pancreas: No peripancreatic fluid stranding. No main pancreatic ductal dilation. Spleen: No splenomegaly. Adrenal glands: The adrenal glands are normal. Kidneys and ureters: Nephrograms are symmetric. No nephrolithiasis or hydroureteronephrosis on either side. No solid lesions Stomach and bowel: Postoperative changes related to left lower quadrant colostomy. There is mild fluid distention and wall thickening of small bowel loops particularly in the left abdomen favored to represent ileus. No discrete transition point to suggest obstruction. Appendix: A normal appendix is not well visualized. Intraperitoneal space: There is mild amount of interloop ascites. Stranding and enhancement along the mesenteric fat planes noted. No discrete collection. Vasculature: Aorta is nonaneurysmal. Lymph nodes: No evidence of retroperitoneal or mesenteric lymphadenopathy. Urinary bladder: There is a small amount of intraluminal bladder gas consistent with instrumentation. Reproductive: Prostate is enlarged. Bones/joints: No acute osseous abnormality. Soft tissues: Surgical tracie in the midabdomen in keeping with recent laparotomy. IMPRESSION: 1. Postoperative changes related to left lower quadrant colostomy. 2. There is mild amount of interloop ascites. Stranding and enhancement along the mesenteric fat planes noted. Findings can be seen in the context of recent surgery. Superimposed infection is not entirely excluded based on imaging features alone. No discrete collection.
--- NOTE | 2022-11-09 10:24 | P.PN_ITS ---
Subjective Patient reports: still having pain Narrative: The patient finds communicating quite difficult with nasogastric tube in place. He does state that his nausea has gotten a little better . Per nursing, he has experienced significant nausea overnight. Per nursing, the patient's ostomy bag was emptied overnight. Exam Data for Last 24 hours Vital signs and Labs for Last 24 Hours: Temp Pulse Resp BP Pulse Ox FiO2 98.0 F 61 17 145/73 H 94 L 2 11/09/22 07:34 11/09/22 07:34 11/09/22 07:34 11/09/22 07:34 11/09/22 07:34 11/04/22 02:00 Laboratory Results - last 24 hr 11/08/22 11:12: POC Glucose 98 11/08/22 20:36: POC Glucose 90 11/09/22 06:43: POC Glucose 135 H 11/09/22 08:15: Magnesium 2.2 11/09/22 08:15: Phosphorus 2.9 11/09/22 08:15: WBC 14.1 H, RBC 3.67 L, Hgb 11.0 L, Hct 34.6 L, MCV 94.1 H, MCH 29.9, MCHC 31.8, RDW 12.9, Plt Count 561 H, MPV 8.9, Neut % (Auto) 80.2 H, Lymph % (Auto) 11.4, [place] % (Auto) 4.8, Eos % (Auto) 3.0, Baso % (Auto) 0.6, Neut # (Auto) 11.3 H, Lymph # (Auto) 1.6, [place] # (Auto) 0.7, Eos # (Auto) 0.4, Baso # (Auto) 0.1 11/09/22 08:15: Sodium 138, Potassium 3.8, Chloride 105, Carbon Dioxide 29, Anion Gap 7.8, BUN 19, Creatinine 0.80, Estimated Creat Clear 85, Estimated GFR 97, Est GFR ( Amer) 118, Glucose 140 H, Calcium 8.0 L, Total Bilirubin 0.5, AST 38, ALT 29, Alkaline Phosphatase 61, Total Protein 5.7 L, Albumin 2.7 L , Globulin 3.0, Albumin/Globulin Ratio 0.9 L I & O for Last 24 hours: Intake & Output 11/06/22 11/07/22 11/08/22 04/01/23 11:59 11:59 11:59 11:59 Intake Total 550 / 550 1120 / 1120 120 / 120 0 / 0 Output Total 625 / 625 100 / 100 950 / 950 1700 / 1700 Balance -75 / -75 1020 / 1020 -830 / -830 -1700 / -1700 Weight 198 lb 3.2 oz 192 lb 8 oz 177 lb 4.8 oz Constitutional Constitutional: mild distress *Routine Respiratory Exam Respiratory: Absent respiratory distress *Routine Cardiovascular Exam Cardiovascular: Absent tachycardia *Routine Abdominal Exam Comments: Incision healing without sign of infection. Ostomy viable. No palpable stricture. Small amount of fluid within bag. Progress Note: A&P Assessment and plan (1) Abscess of sigmoid colon due to diverticulitis: Status: Acute (2) Postoperative nausea: Status: Acute Assessment and plan: Continue nasogastric decompression Continue nursing management of nasogastric tube in order to maintain patency CT scan of abdomen/pelvis ordered (concerns for postoperative early/developing abscess versus proximal immediate post-operative small bowel obstruction) (3) Leukocytosis: Status: Acute Assessment and plan: CT of abdomen/pelvis ordered (see above) Zosyn re-started (4) Colostomy in place: Status: Acute (5) Sepsis: Status: Acute
--- NOTE | 2022-11-09 11:12 | PC.NURSE ---
Addendum entered by Mary Bartlett RN 11/09/22 11:16: pt to rad at this time Original Note: morning meds late as pt was nauseas and gagging.
[2022-11-09 12:30] LABS: POC Glucose,Bedside 114 (70-110)
--- NOTE | 2022-11-09 13:26 | EXP.ACUTE.PN ---
Subjective *Date: 11/09/22 *Time: 13:26 Interval history: Patient had marginal output from NG overnight. Nausea and discomfort improved. Resumed Zosyn. Planning for CT abdomen this morning to evaluate intra-abdominal pathology. NG and PICC line placed yesterday. Stable on room air. Afebrile overnight. Still having liquidy output from ostomy Medical Exam Vital signs and Labs for Last 24 Hours: Vital Signs Temp Pulse Pulse Resp BP BP Pulse Ox 11/09/22 11:02 98.1 F 67 17 150/76 H 93 L 11/09/22 07:34 98.0 F 61 17 145/73 H 94 L 11/09/22 04:00 60 11/09/22 04:00 98.6 F 71 17 138/78 93 L 11/09/22 00:00 70 11/09/22 00:00 98.1 F 76 18 146/67 H 91 L 11/08/22 20:00 60 11/08/22 20:00 98.6 F 62 16 157/72 H 96 11/08/22 16:00 60 11/08/22 16:00 97.8 F 67 16 162/68 H 92 L Intake and Output 11/08/22 11/09/22 11/09/22 23:59 07:59 15:59 Intake Total 0 / 0 0 / 0 Output Total 650 / 1500 950 / 1050 100 / 1050 Balance -650 / -1500 -950 / -1050 -100 / -1050 Intake: Intake, Oral Amount 0 / 0 0 / 0 Output: Output, Urine Amount 100 / 600 775 / 875 100 / 875 Output, Gastric Drainage Amount 550 / 900 175 / 175 Left Nare 550 / 550 175 / 175 Other: Number of Unmeasured Voids 1 0 Weight 80.422 kg Patient Weight 11/09/22 23:59 Weight 80.422 kg Laboratory Results - last 24 hr 11/08/22 20:36: POC Glucose 90 11/09/22 06:43: POC Glucose 135 H 11/09/22 08:15: Magnesium 2.2 11/09/22 08:15: Phosphorus 2.9 11/09/22 08:15: WBC 14.1 H, RBC 3.67 L, Hgb 11.0 L, Hct 34.6 L, MCV 94.1 H, MCH 29.9, MCHC 31.8, RDW 12.9, Plt Count 561 H, MPV 8.9, Neut % (Auto) 80.2 H, Lymph % (Auto) 11.4, [place] % (Auto) 4.8, Eos % (Auto) 3.0, Baso % (Auto) 0.6, Neut # (Auto) 11.3 H, Lymph # (Auto) 1.6, [place] # (Auto) 0.7, Eos # (Auto) 0.4, Baso # (Auto) 0.1 11/09/22 08:15: Sodium 138, Potassium 3.8, Chloride 105, Carbon Dioxide 29, Anion Gap 7.8, BUN 19, Creatinine 0.80, Estimated Creat Clear 85, Estimated GFR 97, Est GFR ( Amer) 118, Glucose 140 H, Calcium 8.0 L, Total Bilirubin 0.5, AST 38, ALT 29, Alkaline Phosphatase 61, Total Protein 5.7 L, Albumin 2.7 L, Globulin 3.0, Albumin/Globulin Ratio 0.9 L 11/09/22 11:44: POC Glucose 114 H I & O for Labs for Last 24 Hours: Intake & Output 11/06/22 11/07/22 11/08/22 11/09/22 23:59 23:59 23:59 23:59 Intake Total 780 / 980 560 / 560 0 / 0 Output Total 500 / 600 400 / 550 1300 / 1500 1050 / 1050 Balance 280 / 380 160 / 10 -1300 / -1500 -1050 / -1050 Weight 89.902 kg 87.317 kg 80.422 kg Constitutional: Present no acute distress Head: Present atraumatic and normocephalic ENT: Present normal exam Comment:: NG in place Neck: Present normal inspection Respiratory: Present crackles (In bilateral bases) and normal respiratory effort; Absent accessory muscle use, rhonchi or wheezes Cardiac: Present Reg Rate and Rhythm GI: Present soft, tenderness (LLQ) and diminished bowel sounds; Absent distention Comments:: ostomy stool output Extremities: Present normal inspection and full ROM Skin: Present intact; Absent erythema Neuro: Present Grossly Intact, alert, awake, oriented x 3 and moves all extremities Assessment and Plan *Assessment and plan (1) Abscess of sigmoid colon due to diverticulitis: Status: Acute Category: Medical Code(s): K57.20 - Diverticulitis of large intestine with perforation and abscess without bleeding (2) Colostomy in place: Status: Acute Category: Medical Code(s): Z93.3 - Colostomy status (3) On total parenteral nutrition (TPN): Status: Acute Category: Medical Code(s): Z78.9 - Other specified health status (4) Sepsis: Status: Acute Qualifiers: Sepsis type: sepsis due to unspecified organism Sepsis acute organ dysfunction status: without acute organ dysfunction Qualified Code(s): A41.9 - Sepsis, unspecified org
[2022-11-09 16:58] LABS: POC Glucose,Bedside 157 (70-110)
--- NOTE | 2022-11-09 17:35 | PC.NURSE ---
PT STATES HE HAS FELT BETTER THIS SHIFT THAN HE HAS PRIOR TO TODAY, PT STILL HAVING NAUSEA AND SPITTING UP CLEAR SPIT. NG TO LWS BETWEEN 50-60. FREQUENTLY HAVE TO INSTILL AIR INTO NG TUBE/ROTATE IT TO MAKE SURE ITS WORKING PROPERLY. PT AMBULATED HALF WAY DOWN THE [place] AND BACK. PT HAS BEEN UP TO THE BR T/O SHIFT. MIDLINE INCISION TO ABD LOOKS GOOD, NO REDNESS, DRAINAGE, SWELLING OR PAIN. PT STATED HES EMPTIED COLOTOMY BAG ONCE WIHT VERY LITTLE OUTPUT.150ML OUT OF NG THIS SHIFT. NEW BAG OF TPN HUNG, INCREASED RATE TO 115ML/HR PER PHARM RECOMMENDATIONS. CB WITHIN REACH AND PERSONAL ITEMS.
[2022-11-09 23:40] LABS: POC Glucose,Bedside 144 (70-110)
[2022-11-10] VITALS (10 sets, daily range): BP systolic 133–153; BP diastolic 62–83; PULSE 64–83; RESP 16–19; TEMP 36.6–37.2; O2SAT 91–100; BMI 24.3
--- NOTE | 2022-11-10 06:00 | XR_ITS ---
PROCEDURE INFORMATION: Exam: XR Complete Acute Abdomen Series Including Chest Exam date and time: 11/10/2022 7:50 AM Age: 62 years old Clinical indication: Screening exam; Post surgical status; Post op ileus bowel surgery; Additional info: Post-op ileus TECHNIQUE: Imaging protocol: Radiologic exam. Complete acute abdomen series, including 2 or more views of the abdomen and a single view chest. COMPARISON: CT ABDOMEN PELVIS W CON 11/09/2022 11:15 AM FINDINGS: Tubes, catheters and devices: Termination of feeding tube in the proximal stomach. Termination of left PICC line in the superior vena cava. Lungs: Interstitial prominence and mild basilar airspace disease. Pleural spaces: Small left pleural effusion. Heart/Mediastinum: No cardiomegaly. Gastrointestinal tract: Paucity of intra-abdominal bowel gas. Bones/joints: Mild degenerative change. Soft tissues: Skin tracie to the left of midline in the abdomen or pelvis. IMPRESSION: 1. Termination of feeding tube in the proximal stomach. Termination of left PICC line in the superior vena cava. 2. Paucity of intra-abdominal bowel gas. 3. Additional findings as described above.
[2022-11-10 06:04] LABS: POC Glucose,Bedside 126 (70-110)
[2022-11-10 06:04] LABS: POC Glucose,Bedside 148 (70-110)
--- NOTE | 2022-11-10 07:04 | PC.NURSE ---
Pt rested well this shift. Pt denies abdominal pain and nausea. NG tube 61 cm at left nare. 300 ml green/yellow gastric content from NG tube this shift. Midline incision with tracie open to air with no sign of infection. Colostomy to LLQ. Pt empties himself. Emptied 3 times this shift, approximately 90ml total. Pt denies pain and nausea. Pt ambulates to bathroom with standby assist and tolerates well. TPN infusing @ 115 ml/hr per OCT.
[2022-11-10 08:24] LABS: Basophils # 0.2 K/mm3 (0-0.2); Eosinophils # 0.7 K/mm3 (0.0-0.4); Eosinophils % 4.3 % (0.1-12.0); Lymphocytes # 2.2 K/mm3 (0.7-4.5); Mean Corpuscular HGB Conc 31.5 g/dL (31.8-35.4); Mean Corpuscular Hemoglobin 30.1 pg (27.0-31.2); Mean Corpuscular Volume 95.8 fl (80-94); Mean Platelet Volume 9.1 fl (7.4-10.4); Monocytes # 0.8 K/mm3 (0.1-1.0); Neutrophils # 11.7 K/mm3 (1.8-7.8); Neutrophils % 75.8 % (37.0-80.0); Platelet Count 566 K/mm3 (142-424); Red Blood Count 4.07 M/mm3 (4.60-6.20); Red Cell Distribution Width 12.8 % (11.5-17.5); White Blood Count 15.4 K/mm3 (4.8-10.8)
[2022-11-10 08:55] LABS: MANUAL DIFFERENTIAL MANUAL DIFFERENTIAL (MANUAL DIFF)
[2022-11-10 08:57] LABS: Ammonia 17 umol/L (9-30); Chloride 103 mmol/L (98-107)
[2022-11-10 08:58] LABS: Potassium 3.6 mmoL/L (3.5-5.1); Sodium 137 mmol/L (136-145)
[2022-11-10 09:00] LABS: Alanine Aminotransferase 40 U/L (12-78); Alkaline Phosphatase 72 U/L (38-126); Aspartate Amino Transferase 48 U/L (17-59); Bilirubin,Total 0.6 mg/dl (0.2-1.3); Blood Urea Nitrogen 20 mg/dl (9-20); Creatinine Clearance Estimated 86 mL/min (50-200); Estimated Glomerular Filt Rate 85 ml/min (>60); GFR (African American) 103 ML/MIN (>60)
[2022-11-10 09:01] LABS: Albumin Level 3.1 g/dl (3.5-5.0); Albumin/Globulin Ratio 0.9 (1.1-1.8); Anion Gap 7.6 mEq/L (5-15); Calcium 8.1 mg/dl (8.4-10.2); Carbon Dioxide 30 mmol/L (22.0-30.0); Globulin 3.3 g/dL (1.3-3.2); Glucose 121 mg/dl (74-100); Total Protein,Serum 6.4 g/dl (6.3-8.2)
[2022-11-10 09:11] LABS: Hemoglobin 12.3 g/dL (14.1-18.0)
[2022-11-10 09:26] LABS: Eosinophils % 1 % (0-3); Lymphocytes % 13 % (10-50); Monocytes % 5 % (2-9); Neutrophils % 81 % (42-76); Platelet Estimate Moderate Increase; RBC Morphology Normal; Total Cells Counted 100
[2022-11-10 09:49] LABS: Phosphorous 3.3 mg/dl (2.5-4.5)
--- NOTE | 2022-11-10 10:00 | EXP.SURG.PN ---
Subjective Narrative: The patient is very slow to answer questions. He is not complaining of abdominal pain. Currently without nausea. He does seem quite bothered by the nasogastric tube. Exam Data for Last 24 hours Vital signs and Labs for Last 24 Hours: Temp Pulse Resp BP Pulse Ox FiO2 98.5 F 73 17 133/77 95 2 11/10/22 07:23 11/10/22 07:23 11/10/22 07:23 11/10/22 07:23 11/10/22 07:23 11/04/22 02:00 Laboratory Results - last 24 hr 11/09/22 11:44: POC Glucose 114 H 11/09/22 16:42: POC Glucose 157 H 11/09/22 21:56: POC Glucose 144 H 11/10/22 02:54: POC Glucose 148 H 11/10/22 05:32: POC Glucose 126 H 11/10/22 07:55: WBC 15.4 H, RBC 4.07 L, Hgb 12.3 L D, Hct 39.0 L, MCV 95.8 H, MCH 30.1, MCHC 31.5 L, RDW 12.8, Plt Count 566 H, MPV 9.1, Neut % (Auto) 75.8, Lymph % (Auto) 14.0, [place] % (Auto) 5.0, Eos % (Auto) 4.3, Baso % (Auto) 1.0, Neut # (Auto) 11.7 H, Lymph # (Auto) 2.2, [place] # (Auto) 0.8, Eos # (Auto) 0.7 H, Baso # (Auto) 0.2, Total Counted 100, Neutrophils % (Manual) 81 H, Lymphocytes % (Manual) 13, Monocytes % (Manual) 5, Eosinophils % (Manual) 1, Platelet Estimate Moderate increase, RBC Morphology Normal 11/10/22 07:55: Sodium 137, Potassium 3.6, Chloride 103, Carbon Dioxide 30, Anion Gap 7.6, BUN 20, Creatinine 0.90, Estimated Creat Clear 86, Estimated GFR 85, Est GFR ( Amer) 103, Glucose 121 H, Calcium 8.1 L, Total Bilirubin 0.6, AST 48 D, ALT 40 D, Alkaline Phosphatase 72, Total Protein 6.4, Albumin 3.1 L D, Globulin 3.3 H, Albumin/Globulin Ratio 0.9 L 11/10/22 07:55: Ammonia 17 I & O for Last 24 hours: Intake & Output 11/07/22 11/08/22 11/09/22 11/10/22 11:59 11:59 11:59 11:59 Intake Total 1120 / 1120 120 / 120 0 / 0 1863 / 1863 Output Total 100 / 100 950 / 950 1700 / 1700 900 / 900 Balance 1020 / 1020 -830 / -830 -1700 / -1700 963 / 963 Weight 192 lb 8 oz 177 lb 4.8 oz 180 lb Narrative: AM flat/upright - IMPRESSION: 1. ? Termination of feeding tube in the proximal stomach. Termination of left PICC line in the superior vena cava. 2. ? Paucity of intra-abdominal bowel gas. 3. ? Additional findings as described above. Note: Gastrografin contrast ordered for 10 PM yesterday evening not administered. Constitutional Constitutional: no acute distress *Routine Respiratory Exam Respiratory: Absent respiratory distress *Routine Cardiovascular Exam Cardiovascular: Absent tachycardia *Routine Abdominal Exam Comments: Ostomy remains viable. Small amount of fluid in bag (nursing reports the patient is emptying his own bag). Progress Note: A&P Assessment and plan (1) Postoperative nausea: Status: Acute Assessment and plan: Gastrografin contrast ordered for 10 PM yesterday evening not administered; therefore, interpretation of this morning's films is somewhat limited. Nasogastric tube to drain bag with residual evaluation every 4 hours. Pending progress with above, formal small bowel follow-through may be beneficial. (2) Leukocytosis: Status: Acute Assessment and plan: Slight increase in white count today to 15.4. The patient remains afebrile. Continue Zosyn for now (3) Abscess of sigmoid colon due to diverticulitis: Status: Acute Assessment and plan: Continue Zosyn for now Increase ambulation (4) Colostomy in place: Status: Acute (5) On total parenteral nutrition (TPN): Status: Acute
[2022-11-10 10:10] LABS: Magnesium 2.5 mg/dl (1.6-2.3)
[2022-11-10 10:33] LABS: Cholesterol 130 mg/dl (140-200); Triglycerides 117 mg/dl (30-150)
--- NOTE | 2022-11-10 10:40 | EXP.ACUTE.PN ---
Subjective *Date: 11/10/22 *Time: 10:40 Interval history: No vomiting overnight. Still having output from NG. Having some minimal dark liquid output from ostomy. Patient still feels puny this morning. Afebrile overnight. No cough or shortness of breath. Medical Exam Vital signs and Labs for Last 24 Hours: Vital Signs Temp Pulse Pulse Resp BP BP Pulse Ox 11/10/22 08:06 80 11/10/22 07:23 98.5 F 73 17 133/77 95 11/10/22 04:00 70 11/10/22 04:00 98.8 F 78 18 153/77 H 92 L 11/10/22 00:00 80 11/09/22 20:00 70 11/10/22 00:00 98.9 F 83 16 144/62 H 100 11/09/22 19:51 99.4 F 74 18 147/73 H 90 L 11/09/22 16:00 66 11/09/22 16:00 98.5 F 83 18 148/79 H 94 L 11/09/22 12:00 67 11/09/22 11:02 98.1 F 67 17 150/76 H 93 L Intake and Output 11/09/22 11/10/22 11/10/22 23:59 07:59 15:59 Intake Total 0 / 0 1863 / 1863 Output Total 200 / 1250 700 / 700 Balance -200 / -1250 1163 / 1163 Intake: Intake, Oral Amount 0 / 0 0 / 0 Intake, Tube Irrigant Amount 90 / 90 Intake, Total IV Amount 1773 / 1773 Aa 4.25%/Calcium/Lytes/Dex 10% 1773 / 1773 1,000 ml @ 115 mls/hr IV . [id number] ONE Rx#:[id number] Output: Output, Urine Amount 50 / 925 400 / 400 Output, Gastric Drainage Amount 150 / 325 300 / 300 Left Nare 150 / 325 300 / 300 Other: Number of Voids 1 Number of Unmeasured Voids 1 0 Weight 81.647 kg Patient Weight 11/10/22 23:59 Weight 81.647 kg Laboratory Results - last 24 hr 11/09/22 11:44: POC Glucose 114 H 11/09/22 16:42: POC Glucose 157 H 11/09/22 21:56: POC Glucose 144 H 11/10/22 02:54: POC Glucose 148 H 11/10/22 05:32: POC Glucose 126 H 11/10/22 07:55: Magnesium 2.5 H D 11/10/22 07:55: Phosphorus 3.3 11/10/22 07:55: WBC 15.4 H, RBC 4.07 L, Hgb 12.3 L D, Hct 39.0 L, MCV 95.8 H, MCH 30.1, MCHC 31.5 L, RDW 12.8, Plt Count 566 H, MPV 9.1, Neut % (Auto) 75.8, Lymph % (Auto) 14.0, [place] % (Auto) 5.0, Eos % (Auto) 4.3, Baso % (Auto) 1.0, Neut # (Auto) 11.7 H, Lymph # (Auto) 2.2, [place] # (Auto) 0.8, Eos # (Auto) 0.7 H, Baso # (Auto) 0.2, Total Counted 100, Neutrophils % (Manual) 81 H, Lymphocytes % (Manual) 13, Monocytes % (Manual) 5, Eosinophils % (Manual) 1, Platelet Estimate Moderate increase, RBC Morphology Normal 11/10/22 07:55: Sodium 137, Potassium 3.6, Chloride 103, Carbon Dioxide 30, Anion Gap 7.6, BUN 20, Creatinine 0.90, Estimated Creat Clear 86, Estimated GFR 85, Est GFR ( Amer) 103, Glucose 121 H, Calcium 8.1 L, Total Bilirubin 0.6, AST 48 D, ALT 40 D, Alkaline Phosphatase 72, Total Protein 6.4, Albumin 3.1 L D, Globulin 3.3 H, Albumin/Globulin Ratio 0.9 L 11/10/22 07:55: Ammonia 17 11/10/22 07:55: Triglycerides 117, Cholesterol 130 L I & O for Labs for Last 24 Hours: Intake & Output 11/07/22 11/08/22 11/09/22 11/10/22 23:59 23:59 23:59 23:59 Intake Total 560 / 560 0 / 0 1863 / 1863 Output Total 400 / 550 1300 / 1500 1250 / 1250 700 / 700 Balance 160 / 10 -1300 / -1500 -1250 / -1250 1163 / 1163 Weight 87.317 kg 80.422 kg 81.647 kg Constitutional: Present no acute distress Head: Present atraumatic and normocephalic ENT: Present normal exam Comment:: NG in place Neck: Present normal inspection Respiratory: Present crackles (In bilateral bases) and normal respiratory effort; Absent accessory muscle use, rhonchi or wheezes Cardiac: Present Reg Rate and Rhythm GI: Present soft, tenderness (LLQ) and diminished bowel sounds; Absent distention Comments:: ostomy stool output Extremities: Present normal inspection and full ROM Skin: Present intact; Absent erythema Neuro: Present Grossly Intact, alert, awake, oriented x 3 and moves all extremities Assessment and Plan *Assessment and plan (1) Abscess of sigmoid colon due to diverticulitis: Status: Acute Category: Medical Code(s): K57.20 - Diverticulitis of large intestine with perforation and
--- NOTE | 2022-11-10 12:20 | PC.NURSE ---
gastric residuals 40ml.
[2022-11-10 15:22] LABS: POC Glucose,Bedside 137 (70-110)
[2022-11-10 16:50] LABS: POC Glucose,Bedside 143 (70-110)
--- NOTE | 2022-11-10 17:58 | PC.NURSE ---
Addendum entered by Mary Bartlett RN 11/10/22 18:47: encourage chewing gum Original Note: pt has done a little better this shift, walked all the way around the unit. no c/o of nausea, pt still spitting up spit afer coughing/gaging. ng hooked to drainage bag, at 1630 110ml emptied out of bag, nothing suctioned out. per dr. foster, he is okay with output around 100ml as long as pt is doing well. pt emptied colostomy bag twice this shift, unmeasured, pt states its been a little more out than yesterday . pt currently bathing at bedside midline still looks good, no signs of infection. no pain, only tender to touch. cb within reach, at bedside.
[2022-11-10 22:04] LABS: POC Glucose,Bedside 114 (70-110)
--- NOTE | 2022-11-10 22:20 | XR_ITS ---
PROCEDURE INFORMATION: Exam: XR Abdomen Exam date and time: 11/10/2022 11:15 PM Age: 62 years old Clinical indication: Device placement; Gi device; Other: Ng; Additional info: Ngt placement TECHNIQUE: Imaging protocol: Radiologic exam of the abdomen. Views: Frontal supine view of the abdomen. 1 View. COMPARISON: CR XR ACUTE ABDOMEN SERIES 11/10/2022 7:50 AM FINDINGS: Gastrointestinal tract: Normal. No bowel dilation. Bones/joints: Unremarkable. Nasogastric tube projected over left upper quadrant in expected location. IMPRESSION: No acute findings. Nasogastric tube in expected location.
--- NOTE | 2022-11-10 22:23 | PC.NURSE ---
Pt. coughing and feels like he is going to vomit after given meds through his NG tube. Arpit aware and orders placed for KUB.
--- NOTE | 2022-11-10 23:26 | PC.NURSE ---
NG tube marked under nose at level of 65 number.
--- NOTE | 2022-11-10 23:32 | PC.NURSE ---
Residual check from at 08:00 was 0. Residual check at 11:33 was 60 ml.
[2022-11-11] VITALS (11 sets, daily range): BP systolic 119–146; BP diastolic 61–77; PULSE 70–100; RESP 16–18; TEMP 36.4–37.7; O2SAT 92–97; BMI 24.6
--- NOTE | 2022-11-11 04:40 | PC.NURSE ---
Residual amount removed 80 ml.
--- NOTE | 2022-11-11 04:46 | PC.NURSE ---
Residual removed at 04:00 is 80 ml.
--- NOTE | 2022-11-11 05:07 | PC.NURSE ---
Drainage over the night from NG to gravity bag was 200 ml green in color.
[2022-11-11 05:48] LABS: POC Glucose,Bedside 123 (70-110)
--- NOTE | 2022-11-11 06:19 | FL_ITS ---
FINAL REPORT CLINICAL HISTORY: . vomiting, persistent ng output, r/o obstruction FINDINGS: SMALL BOWEL FOLLOW THROUGH HISTORY: Recent surgery, evaluate for obstruction. PROCEDURE: Gastrograffin contrast was administered through the patient's existing NG tube. Overhead films were obtained. FINDINGS: Hand Icer film demonstrates an NG tube terminating in the stomach. There is a midline row of skin tracie identified. The transit time of contrast to the ostomy bag is normal. Contrast is seen in the bag at one hour. There is no evidence of small bowel obstruction. Gastroesophageal reflux is incidentally noted. Fluoroscopy was not utilized for this exam. 6 images were saved. IMPRESSION: No evidence of small bowel obstruction. Gastroesophageal reflux incidentally noted. Reviewed, Interpreted and Dictated by Dell Elkins MD Transcribed by Lara Andrews PA-C Authenticated and [facility]
--- NOTE | 2022-11-11 06:20 | P.PN_ITS ---
Subjective Narrative: Patient without significant complaints. No nausea. NG appears to have put out 280 cc. Exam Data for Last 24 hours Vital signs and Labs for Last 24 Hours: Temp Pulse Resp BP Pulse Ox FiO2 99.8 F H 75 16 125/77 94 L 2 11/11/22 04:00 11/11/22 04:00 11/11/22 04:00 11/11/22 04:00 11/11/22 04:00 11/04/22 02:00 Laboratory Results - last 24 hr 11/10/22 07:55: Magnesium 2.5 H D 11/10/22 07:55: Phosphorus 3.3 11/10/22 07:55: WBC 15.4 H, RBC 4.07 L, Hgb 12.3 L D, Hct 39.0 L, MCV 95.8 H, MCH 30.1, MCHC 31.5 L, RDW 12.8, Plt Count 566 H, MPV 9.1, Neut % (Auto) 75.8, Lymph % (Auto) 14.0, [place] % (Auto) 5.0, Eos % (Auto) 4.3, Baso % (Auto) 1.0, Neut # (Auto) 11.7 H, Lymph # (Auto) 2.2, [place] # (Auto) 0.8, Eos # (Auto) 0.7 H, Baso # (Auto) 0.2, Total Counted 100, Neutrophils % (Manual) 81 H, Lymphocytes % (Manual) 13, Monocytes % (Manual) 5, Eosinophils % (Manual) 1, Platelet Estimate Moderate increase, RBC Morphology Normal 11/10/22 07:55: Sodium 137, Potassium 3.6, Chloride 103, Carbon Dioxide 30, Anion Gap 7.6, BUN 20, Creatinine 0.90, Estimated Creat Clear 86, Estimated GFR 85, Est GFR ( Amer) 103, Glucose 121 H, Calcium 8.1 L, Total Bilirubin 0.6, AST 48 D, ALT 40 D, Alkaline Phosphatase 72, Total Protein 6.4, Albumin 3.1 L D, Globulin 3.3 H, Albumin/Globulin Ratio 0.9 L 11/10/22 07:55: Ammonia 17 11/10/22 07:55: Triglycerides 117, Cholesterol 130 L 11/10/22 11:36: POC Glucose 137 H 11/10/22 16:39: POC Glucose 143 H 11/10/22 21:57: POC Glucose 114 H 11/11/22 05:41: POC Glucose 123 H I & O for Last 24 hours: Intake & Output 11/08/22 11/09/22 11/10/22 11/11/22 11:59 11:59 11:59 11:59 Intake Total 120 / 120 0 / 0 1863 / 1863 1020 / 1020 Output Total 950 / 950 1700 / 1700 900 / 940 641 / 641 Balance -830 / -830 -1700 / -1700 963 / 923 379 / 379 Weight 177 lb 4.8 oz 180 lb 182 lb *Routine Abdominal Exam Abdominal: Present soft Comments: Incision clean. Ostomy healthy with some liquid output. Progress Note: A&P Assessment and plan (1) Abscess of sigmoid colon due to diverticulitis: Status: Acute (2) Colostomy in place: Status: Acute (3) On total parenteral nutrition (TPN): Status: Acute (4) Sepsis: Status: Acute (5) Mood disorder: Status: Chronic Assessment and Plan Assessment and Plan for All Diagnoses:: I will obtain a small bowel follow-through today. If this shows no obstruction may remove nasogastric tube.
[2022-11-11 07:17] LABS: Chloride 103 mmol/L (98-107); Potassium 3.9 mmoL/L (3.5-5.1); Sodium 133 mmol/L (136-145)
[2022-11-11 07:19] LABS: Ammonia 33 umol/L (9-30); Blood Urea Nitrogen 22 mg/dl (9-20); Creatinine Clearance Estimated 87 mL/min (50-200); Estimated Glomerular Filt Rate 85 ml/min (>60); GFR (African American) 103 ML/MIN (>60)
[2022-11-11 07:20] LABS: Alanine Aminotransferase 33 U/L (12-78); Albumin Level 2.7 g/dl (3.5-5.0); Alkaline Phosphatase 56 U/L (38-126); Anion Gap 9.9 mEq/L (5-15); Aspartate Amino Transferase 45 U/L (17-59); Basophils # 0.1 K/mm3 (0-0.2); Basophils % 0.8 % (0.1-2.0); Bilirubin,Total 0.6 mg/dl (0.2-1.3); Calcium 7.4 mg/dl (8.4-10.2); Carbon Dioxide 24 mmol/L (22.0-30.0); Eosinophils # 0.4 K/mm3 (0.0-0.4); Eosinophils % 3.5 % (0.1-12.0); Globulin 2.8 g/dL (1.3-3.2); Glucose 125 mg/dl (74-100); Hematocrit 33.7 % (42.0-52.0); Lymphocytes # 1.7 K/mm3 (0.7-4.5); Lymphocytes % 15.4 % (10-50); Mean Corpuscular HGB Conc 31.5 g/dL (31.8-35.4); Mean Corpuscular Hemoglobin 29.7 pg (27.0-31.2); Mean Corpuscular Volume 94.3 fl (80-94); Monocytes # 0.8 K/mm3 (0.1-1.0); Monocytes % 7.6 % (1.7-9.3); Neutrophils # 7.9 K/mm3 (1.8-7.8); Neutrophils % 72.7 % (37.0-80.0); Platelet Count 394 K/mm3 (142-424); Red Blood Count 3.57 M/mm3 (4.60-6.20); Total Protein,Serum 5.5 g/dl (6.3-8.2); White Blood Count 10.9 K/mm3 (4.8-10.8)
[2022-11-11 07:21] LABS: Cholesterol 101 mg/dl (140-200); Magnesium 2.3 mg/dl (1.6-2.3); Phosphorous 3.2 mg/dl (2.5-4.5); Triglycerides 79 mg/dl (30-150)
[2022-11-11 07:26] LABS: Hemoglobin 10.6 g/dL (14.1-18.0)
--- NOTE | 2022-11-11 08:00 | PC.NURSE ---
NG residual 15 ml obtained when hooked to low wall suction. Pt. ambulated to bathroom with steady gait. Emptied ostomy himself without problems.
--- NOTE | 2022-11-11 09:31 | EXP.ACUTE.PN ---
Subjective *Date: 11/11/22 *Time: 09:31 Interval history: Output of 295 cc since midnight from NG. No nausea or vomiting overnight. Patient states he feels somewhat better today. Has had increased output from ostomy. Afebrile overnight. White cell count has normalized. Tolerating TPN. Denies shortness of breath or chest pain Medical Exam Vital signs and Labs for Last 24 Hours: Vital Signs Temp Pulse Pulse Resp BP BP Pulse Ox 11/11/22 07:15 98.7 F 78 18 146/71 H 92 L 11/11/22 04:00 70 11/11/22 04:00 99.8 F H 75 16 125/77 94 L 11/11/22 00:00 80 11/10/22 20:00 97 11/10/22 23:38 97.9 F 81 17 146/74 H 91 L 11/10/22 20:00 80 11/10/22 20:00 98.1 F 64 16 136/68 98 11/10/22 16:00 76 11/10/22 12:00 81 11/10/22 12:00 81 11/10/22 15:24 98.0 F 75 17 145/70 H 92 L 11/10/22 11:31 97.9 F 68 19 153/83 H 93 L Intake and Output 11/10/22 11/11/22 11/11/22 23:59 07:59 15:59 Intake Total 1020 / 1020 Output Total 320 / 1060 581 / 696 115 / 696 Balance -320 / 803 439 / 324 -115 / 324 Intake: Intake, Total IV Amount 1020 / 1020 Aa 4.25%/Calcium/Lytes/Dex 10% 920 / 920 1,000 ml @ 115 mls/hr IV . Q8H42M [facility] Rx#:[id number] Piperacillin/Tazo 4.5 gm In 0.9 100 / 100 % Sodium Chloride 100 ml @ 200 mls/hr IV Q6H [facility] Rx#:[id number] Output: Output, Urine Amount 150 / 550 301 / 401 100 / 401 Output, Gastric Drainage Amount 170 / 510 280 / 295 15 / 295 Left Nare 170 / 510 280 / 295 15 / 295 Other: Number of Unmeasured Voids 0 Number of Bowel Movements 1 Weight 82.554 kg Patient Weight 11/11/22 23:59 Weight 82.554 kg Laboratory Results - last 24 hr 11/10/22 07:55: Magnesium 2.5 H D 11/10/22 07:55: Phosphorus 3.3 11/10/22 07:55: Triglycerides 117, Cholesterol 130 L 11/10/22 11:36: POC Glucose 137 H 11/10/22 16:39: POC Glucose 143 H 11/10/22 21:57: POC Glucose 114 H 11/11/22 05:41: POC Glucose 123 H 11/11/22 06:45: Magnesium 2.3 11/11/22 06:45: Phosphorus 3.2 11/11/22 06:45: WBC 10.9 H D, RBC 3.57 L, Hgb 10.6 L D, Hct 33.7 L, MCV 94.3 H, MCH 29.7, MCHC 31.5 L, RDW 13.0, Plt Count 394 D, MPV 9.0, Neut % (Auto) 72.7, Lymph % (Auto) 15.4, Mcclain % (Auto) 7.6, Eos % (Auto) 3.5, Baso % (Auto) 0.8, Neut # (Auto) 7.9 H, Lymph # (Auto) 1.7, Mcclain # (Auto) 0.8, Eos # (Auto) 0.4, Baso # (Auto) 0.1 11/11/22 06:45: Sodium 133 L, Potassium 3.9, Chloride 103, Carbon Dioxide 24, Anion Gap 9.9, BUN 22 H, Creatinine 0.90, Estimated Creat Clear 87, Estimated GFR 85, Est GFR ( Amer) 103, Glucose 125 H, Calcium 7.4 L, Total Bilirubin 0.6, AST 45, ALT 33, Alkaline Phosphatase 56, Total Protein 5.5 L, Albumin 2.7 L D, Globulin 2.8, Albumin/Globulin Ratio 1.0 L 11/11/22 06:45: Ammonia 33 H 11/11/22 06:45: Triglycerides 79, Cholesterol 101 L I & O for Labs for Last 24 Hours: Intake & Output 11/08/22 11/09/22 11/10/22 11/11/22 23:59 23:59 23:59 23:59 Intake Total 0 / 0 1863 / 1863 1020 / 1020 Output Total 1300 / 1500 1250 / 1250 1060 / 1060 696 / 696 Balance -1300 / -1500 -1250 / -1250 803 / 803 324 / 324 Weight 80.422 kg 81.647 kg 82.554 kg Constitutional: Present no acute distress and average body habitus Head: Present atraumatic and normocephalic ENT: Present normal exam Comment:: NG in place Neck: Present normal inspection Respiratory: Present crackles (In bilateral bases) and normal respiratory effort; Absent accessory muscle use, rhonchi or wheezes Cardiac: Present Reg Rate and Rhythm GI: Present soft and normal bowel sounds; Absent distention or tenderness Comments:: ostomy stool output Extremities: Present normal inspection and full ROM Skin: Present intact; Absent erythema Neuro: Present Grossly Intact, alert, awake, oriented x 3 and moves all extremities Assessment and Plan *Assessment and plan (1) Ileus: Status: Acute Category: Medical Code
--- NOTE | 2022-11-11 10:16 | HMH.IPREAS ---
Rehab IP Re-assessment Rehab IP Re-assessment Start: 11/11/22 10:13 Freq: Status: Active Protocol: Document 11/11/22 09:00 VARUN (Rec: 11/11/22 10:16 PHORNE [id number]) E-signed By Duong Saucedo, PT Subjective Subjective Subjective 62 yowm adm to [facility] with diverticulitis resulting in abd pain. Now S/P ex-lap with end colostomy performed . He reports he lives with spouse, ramp to enter the home and he is generally independent with all mobility without AD prior to adm. He reports he was doing better, but had to have NG tube placed due to post-op ileus and was feeling worse for the past several days. He reports he has been getting up independently in his room. Rehab IP PT Reassessment Eval Objective Appearance Patient Behavior Appropriate Patient Orientation Person,Place,Time Difficulty following instructions none Speech Pattern Clear Ambulation Patient Able to Ambulate Yes Ambulation Observation IP General Gait Pattern Observation No Deviations/Normal Ambulation Distance (feet) 250 Ambulation Assistive Device None Ambulation Ability Independent Balance Ability to Arise Able, uses arms to help Sitting Balance Steady, safe Standing Balance Steady, wide stance Dynamic Sitting Balance Ability Good Dynamic Standing Balance Ability Good Transfers Bed Transfer Ability Independent Chair Transfer Ability Independent Sit to Stand Bed Transfer Ability Independent Sit to Stand Chair Transfer Ability Independent ROM All Extremities PT ROM Status WFL MMT All Extremities PT MMT WFL Rehab IP PT Reassessment of problems, goals, plan Problems Date of Evaluation: 11/11/22 Discharge Plan PT Discharge Plan Pt remains independent with all bed mobility, transfers, and ambulation. He is appropriate to return home once medically stable for d/c. No current inpatient therapy needs. G -code Required No IP Reassessment Inpatient Rehab Reassessment Performed Yes PHYSICIAN CERTIFICATION: I certify the specif
--- NOTE | 2022-11-11 11:00 | PC.NURSE ---
Pt. began vomiting following oral contrast given through NG tube. Zofran given IV, cool wash rag placed on patients forehead. Pt. stated he felt better. Pt. up to the bathroom with assist, noticed his midline incision was oozing, Dr. Bolivar at bedside to assess. Orders to place 4x4s on site, drainage scant at this time. Pt. states minimal nausea at this time. Will continue to monitor.
[2022-11-11 11:29] LABS: POC Glucose,Bedside 128 (70-110)
--- NOTE | 2022-11-11 11:54 | PC.NURSE ---
NG hooked up to low wall suction. No residual at this time. NG connected to drainage back, draining to gravity.
--- NOTE | 2022-11-11 12:30 | PC.NURSE ---
Dr. Chauhan at bedside to assess patient/ remove NG, pt. up to bathroom, NG tube came out while pt was ambulating to the bathroom. Orders to hold TPN and order low residue diet with sips of water. Pt. agreeable. Will continue to monitor.
--- NOTE | 2022-11-11 14:08 | DIET.NUTRFU ---
Saw patient, his diet was upgraded to low residue/low fiber for lunch. so far has tolerated some tomato soup and a Popsicle. Denies any N/V. He reports he has emptied his ostomy bag x2 today but some may have been contrast all very loose. Denies any gas. Wants to go home. RD reviewed weight with patient since admit, he was 83kg upon admit and CBW is 82.5kg. Stable, during admit his weight had gone up possibly d/t IVF tx. Base on limited oral diet since admit, proetin intake has been low to none. Encouraged once tolerating his diet to add protein in to all meals to replenish his diet. He did receive TPN to help meet caloric and protein needs, currently on hold. Once oral diet is tolerated will discontinue.
--- NOTE | 2022-11-11 14:22 | PC.NURSE ---
Pt. tolerated diet well for lunch. Denies N/V. Orders to D/C TPN at this time.
[2022-11-11 17:08] LABS: POC Glucose,Bedside 101 (70-110)
--- NOTE | 2022-11-11 17:53 | PC.NURSE ---
Pt. has tolerated lunch and dinner well. Eating small portions both times, but without nausea or vomiting. Dr. Chauhan visited patient and is happy with todays progress. Pt. has rested off on and on throughout the day and has done well with emptying his ostomy himself.
[2022-11-11 22:27] LABS: POC Glucose,Bedside 99 (70-110)
[2022-11-12] VITALS: PULSE 81
--- NOTE | 2022-11-12 00:43 | P.PN_ITS ---
Subjective *Date: 11/12/22 *Time: 00:43 Exam Data for Last 24 hours Vital signs and Labs for Last 24 Hours: Temp Pulse Resp BP Pulse Ox FiO2 98.8 F 79 16 126/61 93 L 2 11/11/22 23:46 11/11/22 23:46 11/11/22 23:46 11/11/22 23:46 11/11/22 23:46 11/04/22 02:00 Laboratory Results - last 24 hr 11/11/22 05:41: POC Glucose 123 H 11/11/22 06:45: Magnesium 2.3 11/11/22 06:45: Phosphorus 3.2 11/11/22 06:45: WBC 10.9 H D, RBC 3.57 L, Hgb 10.6 L D, Hct 33.7 L, MCV 94.3 H, MCH 29.7, MCHC 31.5 L, RDW 13.0, Plt Count 394 D, MPV 9.0, Neut % (Auto) 72.7, Lymph % (Auto) 15.4, Crawford % (Auto) 7.6, Eos % (Auto) 3.5, Baso % (Auto) 0.8, Neut # (Auto) 7.9 H, Lymph # (Auto) 1.7, Crawford # (Auto) 0.8, Eos # (Auto) 0.4, Baso # (Auto) 0.1 11/11/22 06:45: Sodium 133 L, Potassium 3.9, Chloride 103, Carbon Dioxide 24, Anion Gap 9.9, BUN 22 H, Creatinine 0.90, Estimated Creat Clear 87, Estimated GFR 85, Est GFR ( Amer) 103, Glucose 125 H, Calcium 7.4 L, Total Bilirubin 0.6, AST 45, ALT 33, Alkaline Phosphatase 56, Total Protein 5.5 L, Albumin 2.7 L D, Globulin 2.8, Albumin/Globulin Ratio 1.0 L 11/11/22 06:45: Ammonia 33 H 11/11/22 06:45: Triglycerides 79, Cholesterol 101 L 11/11/22 11:13: POC Glucose 128 H 11/11/22 16:57: POC Glucose 101 11/11/22 22:17: POC Glucose 99 I & O for Last 24 hours: Intake & Output 11/09/22 11/10/22 11/11/2204/23 23:59 23:59 23:59 23:59 Intake Total 0 / 0 1863 / 1863 2059 / 2059 Output Total 1250 / 1250 1060 / 1060 846 / 846 Balance -1250 / -1250 803 / 803 1214 / 1214 Weight 80.422 kg 81.647 kg 82.554 kg Assessment and Plan *Assessment and plan Plan Mr Helton is a 62 year old male who presented with abdominal pain. He had diverticulitis complicated by perforation and went to the OR for emergent lapa rotomy and ostomy formation on 11/02. Postoperatively he has had ileus and has had an NG tube to suction. TPN was started on 11/08. #ileus #diverticulitis complicated by perforation Continue Zosyn to complete at least 10 days. Appreciate General Surgery Continuing TPN. Appreciate Pharmacy's help. Watching potassium, calcium, phosphorus, LFTs, cholesterol and triglyceride levels. PICC line was placed 11/08. dvt ppx: heparin subcu Full code NPO
[2022-11-12 04:00] VITALS: BP 121/70; PULSE 70; PULSE 77; RESP 20; TEMP 36.9; O2SAT 95; BMI 23.6
--- NOTE | 2022-11-12 04:08 | PC.NURSE ---
Pt. has had no n/v or needed any pain medications last night or this morning. He has been up to the bathroom several times through the night with no issues.
[2022-11-12 05:26] LABS: POC Glucose,Bedside 104 (70-110)
[2022-11-12 06:39] LABS: Chloride 106 mmol/L (98-107); Sodium 137 mmol/L (136-145)
[2022-11-12 06:41] LABS: Ammonia < 9 umol/L (9-30)
[2022-11-12 06:43] LABS: Blood Urea Nitrogen 24 mg/dl (9-20); Calcium 7.8 mg/dl (8.4-10.2); Carbon Dioxide 27 mmol/L (22.0-30.0); Creatinine Clearance Estimated 76 mL/min (50-200); Estimated Glomerular Filt Rate 67 ml/min (>60); GFR (African American) 82 ML/MIN (>60); Glucose 100 mg/dl (74-100); Magnesium 2.4 mg/dl (1.6-2.3); Phosphorous 3.2 mg/dl (2.5-4.5)
[2022-11-12 06:58] LABS: Cholesterol 109 mg/dl (140-200); Triglycerides 112 mg/dl (30-150)
--- NOTE | 2022-11-12 07:45 | PC.NURSE ---
Dr. Chauhan at bedside to assess how pt. did overnight. Pt. states no complaints, and has tolerated his new diet well. Dr. Chauhan removed ostomy bag and assessed midline incision and stoma. He removed some tracie near the bellybutton and upper part of midline incision. Ostomy bag changed at this time as well. Pt. has no complaints of pain at this time. Assisted pt. to the bathroom, gait is steady and pt moves independently without trouble.
--- NOTE | 2022-11-12 07:47 | EXP.SURG.PN ---
Subjective Narrative: Patient is postoperative day #10. patient states that he feels better. He has been tolerating a low residue diet. He has some serosanguineous drainage on his gown this morning however. Exam Data for Last 24 hours Vital signs and Labs for Last 24 Hours: Temp Pulse Resp BP Pulse Ox FiO2 98.5 F 77 20 121/70 95 2 11/12/22 04:00 11/12/22 04:00 11/12/22 04:00 11/12/22 04:00 11/12/22 04:00 11/04/22 02:00 Laboratory Results - last 24 hr 11/11/22 11:13: POC Glucose 128 H 11/11/22 16:57: POC Glucose 101 11/11/22 22:17: POC Glucose 99 11/12/22 05:18: POC Glucose 104 11/12/22 06:10: Magnesium 2.4 H 11/12/22 06:10: Sodium 137, Potassium 4.0, Chloride 106, Carbon Dioxide 27, Anion Gap 8.0, BUN 24 H, Creatinine 1.10 D, Estimated Creat Clear 76, Estimated GFR 67, Est GFR ( Amer) 82 D, Glucose 100, Calcium 7.8 L, Phosphorus 3.2 11/12/22 06:10: Ammonia < 9 L 11/12/22 06:10: Triglycerides 112, Cholesterol 109 L I & O for Last 24 hours: Intake & Output 11/09/22 11/10/22 11/11/22 11/12/22 11:59 11:59 11:59 11:59 Intake Total 0 / 0 1863 / 1863 1020 / 1020 1040 / 1040 Output Total 1700 / 1700 900 / 940 1206 / 1206 0 / 0 Balance -1700 / -1700 963 / 923 -186 / -186 1040 / 1040 Weight 177 lb 4.8 oz 180 lb 182 lb 174 lb 9.6 oz *Routine Abdominal Exam Abdominal: Present soft Comments: No evidence of any cellulitis. Minimal serosanguineous drainage near umbilical area. Not ongoing. Progress Note: A&P Assessment and plan (1) Ileus: Status: Acute (2) Abscess of sigmoid colon due to diverticulitis: Status: Acute (3) Colostomy in place: Status: Acute (4) On total parenteral nutrition (TPN): Status: Acute (5) Sepsis: Status: Acute (6) Mood disorder: Status: Chronic Assessment and Plan Assessment and Plan for All Diagnoses:: I removed about half of the tracie. Should be okay for discharge today. I will write for a few more days of Augmentin. I will ensure that home health and discharge planning is set up for ostomy appliance care. I will see him in the office in 1 week.
[2022-11-12 08:00] VITALS: BP 129/67; PULSE 70; PULSE 82; RESP 18; TEMP 36.8; O2SAT 91
--- NOTE | 2022-11-12 09:33 | EXP.PHA.PN ---
Subjective *Date: 11/12/22 *Time: 09:33 Medical Exam Vital signs and Labs for Last 24 Hours: Vital Signs Temp Pulse Pulse Resp BP BP Pulse Ox 11/12/22 08:00 70 11/12/22 08:00 98.2 F 82 18 129/67 91 L 11/12/22 04:00 70 11/11/22 21:00 84 11/12/22 04:00 98.5 F 77 20 121/70 95 11/12/22 00:00 81 11/11/22 23:46 98.8 F 79 16 126/61 93 L 11/11/22 20:00 97 11/11/22 20:00 97.7 F 100 H 18 124/72 96 11/11/22 16:00 90 11/11/22 12:00 70 11/11/22 15:04 98.7 F 84 18 122/72 96 11/11/22 11:15 97.5 F L 77 18 119/77 94 L Intake and Output 11/11/22 11/12/22 11/12/22 23:59 07:59 15:59 Intake Total 1040 / 2060 240 / 240 Output Total 0 / 846 0 / 0 Balance 1040 / 1214 0 / 240 240 / 240 Intake: Intake, Oral Amount 240 / 240 240 / 240 Intake, Total IV Amount 800 / 1820 Aa 4.25%/Calcium/Lytes/Dex 10% 500 / 1420 1,000 ml @ 115 mls/hr IV . Q8H42M [facility] Rx#:[id number] Piperacillin/Tazo 4.5 gm In 0.9 200 / 300 % Sodium Chloride 100 ml @ 200 mls/hr IV Q6H [facility] Rx#:[id number] Potassium Phosphate 15 mmol In 100 / 100 0.9 % Sodium Chloride 250 ml @ 63.75 mls/hr IV ONCE ONE Rx#: [id number] Output: Output, Urine Amount 0 / 551 0 / 0 Other: Number of Unmeasured Voids 1 1 Number of Bowel Movements 1 Weight 79.197 kg Patient Weight 11/12/22 23:59 Weight 79.197 kg Laboratory Results - last 24 hr 11/11/22 11:13: POC Glucose 128 H 11/11/22 16:57: POC Glucose 101 11/11/22 22:17: POC Glucose 99 11/12/22 05:18: POC Glucose 104 11/12/22 06:10: Magnesium 2.4 H 11/12/22 06:10: Sodium 137, Potassium 4.0, Chloride 106, Carbon Dioxide 27, Anion Gap 8.0, BUN 24 H, Creatinine 1.10 D, Estimated Creat Clear 76, Estimated GFR 67, Est GFR ( Amer) 82 D, Glucose 100, Calcium 7.8 L, Phosphorus 3.2 11/12/22 06:10: Ammonia < 9 L 11/12/22 06:10: Triglycerides 112, Cholesterol 109 L I & O for Labs for Last 24 Hours: Intake & Output 11/09/22 11/10/22 11/11/22 11/12/22 23:59 23:59 23:59 23:59 Intake Total 0 / 0 1863 / 1863 2060 / 2060 240 / 240 Output Total 1250 / 1250 1060 / 1060 846 / 846 0 / 0 Balance -1250 / -1250 803 / 803 1214 / 1214 240 / 240 Weight 80.422 kg 81.647 kg 82.554 kg 79.197 kg The patient's infection will respond to the chosen ABx?: Yes (DIVERTICULITIS, TO COMPLETE 10 DAYS PER MD NOTE) Is the patient receiving the right drug, dose, and route?: Yes Could a more targeted ABx be ordered?: No (POSSIBLE SWITCH TO AUGMENTIN ON DISCHARGE PER MD NOTE.) How long ABx needed (days)?: 10
[2022-11-12 10:42] LABS: POC Glucose,Bedside 123 (70-110)
[2022-11-12 11:11] VITALS: BP 125/64; PULSE 77; RESP 19; TEMP 36.6; O2SAT 95
--- NOTE | 2022-11-12 11:58 | EXP.DC.SUM ---
General Admission date:: 10/31/22 Discharge date: 11/12/22 Hospital Course Hospital Course Hospital Course: Mr Helton is a 62 year old male who presented with abdominal pain. He had diverticulitis complicated by perforation and went to the OR for emergent laparotomy and ostomy formation on 11/02. Postoperatively he has had ileus and had an NG tube to suction. TPN was started on 11/08. The patient was able to eat without issues and had good output from his ostomy by the day of discharge. He received Zosyn throughout the hospital course. #diverticulitis complicated by perforation #ileus, resolved Exam Data for Last 24 hours Vital signs and Labs for Last 24 Hours: Temp Pulse Resp BP Pulse Ox FiO2 97.8 F 77 19 125/64 95 2 11/12/22 11:11 11/12/22 11:11 11/12/22 11:11 11/12/22 11:11 11/12/22 11:11 11/04/22 02:00 Laboratory Results - last 24 hr 11/11/22 16:57: POC Glucose 101 11/11/22 22:17: POC Glucose 99 11/12/22 05:18: POC Glucose 104 11/12/22 06:10: Magnesium 2.4 H 11/12/22 06:10: Sodium 137, Potassium 4.0, Chloride 106, Carbon Dioxide 27, Anion Gap 8.0, BUN 24 H, Creatinine 1.10 D, Estimated Creat Clear 76, Estimated GFR 67, Est GFR ( Amer) 82 D, Glucose 100, Calcium 7.8 L, Phosphorus 3.2 11/12/22 06:10: Ammonia < 9 L 11/12/22 06:10: Triglycerides 112, Cholesterol 109 L 11/12/22 10:29: POC Glucose 123 H I & O for Last 24 hours: Intake & Output 11/09/22 11/10/22 11/11/22 11/12/22 23:59 23:59 23:59 23:59 Intake Total 0 / 0 1863 / 1863 2060 / 2060 240 / 240 Output Total 1250 / 1250 1060 / 1060 846 / 846 0 / 0 Balance -1250 / -1250 803 / 803 1214 / 1214 240 / 240 Weight 80.422 kg 81.647 kg 82.554 kg 79.197 kg Constitutional Constitutional: no acute distress *Routine HEENT Exam Head: Present normocephalic Eye: Present EOMI and PERRL ENT: Present mucous membranes moist *Routine Neck Exam Neck: Present supple; Absent lymphadenopathy *Routine Respiratory Exam Respiratory: Present CTA bilaterally *Routine Cardiovascular Exam Cardiovascular: Present RRR *Routine Abdominal Exam Abdominal: Present soft and other (20cm midline vertical surgical incision with tracie. ostomybag with thick brown liquid); Absent tenderness *Routine Extremities Exam Extremities: Absent cyanosis, clubbing or edema *Routine Skin Exam Skin: Present warm; Absent rash *Routine Neurological Exam Neurological: Present alert and oriented X3 Results Data Completed and Pending Labs on day of discharge: Labs from last 24 hours 11/12/22 11/12/22 11/12/22 10:29 06:10 06:10 Sodium Potassium Chloride Carbon Dioxide Anion Gap BUN Creatinine Estimated Creat Clear Estimated GFR Est GFR ( Amer) Glucose POC Glucose 123 H Calcium Phosphorus Magnesium Ammonia < 9 L Triglycerides 112 Cholesterol 109 L 11/12/22 11/12/22 11/12/22 06:10 06:10 05:18 Sodium 137 Potassium 4.0 Chloride 106 Carbon Dioxide 27 Anion Gap 8.0 BUN 24 H Creatinine 1.10 D Estimated Creat Clear 76 Estimated GFR 67 Est GFR ( Amer) 82 D Glucose 100 POC Glucose 104 Calcium 7.8 L Phosphorus 3.2 Magnesium 2.4 H Ammonia Triglycerides Cholesterol 11/11/22 11/11/22 22:17 16:57 Sodium Potassium Chloride Carbon Dioxide Anion Gap BUN Creatinine Estimated Creat Clear Estimated GFR Est GFR ( Amer) Glucose POC Glucose 99 101 Calcium Phosphorus Magnesium Ammonia Triglycerides Cholesterol DS: Diagnosis Discharge Diagnosis (1) Ileus: Status: Acute (2) Abscess of sigmoid colon due to diverticulitis: Status: Acute (3) Colostomy in place: Status: Acute (4) On total parenteral nutrition (TPN): Status: Acute (5) Sepsis: Status: Acute (6) Mood disorder: Status: Chronic Meds Home Medications and Allergies Home Med
[2022-11-12 12:00] VITALS: PULSE 80
--- NOTE | 2022-11-13 14:20 | CARE MANAGER ---
Contacted patient related hospital discharge. He states his biggest issue is with his throat and voice from the tube . He is aware of follow up appointments. Initially, the patient refused home health due to cost. After speaking with [facility] and with the patient again, he has agreed to at least 2 SN visits. Spoke with Deedee at [facility] and she will reach back out to patient. GULSHAN Price
== END 2022-11-12 13:15 | disposition home or self-care (01) | DRG 329 ==
LOC: ER 14:44 → 2ND 15:21
PROVIDERS: Student in an Organized Health Care Education/Training Program; Surgery; Admitting Provider Internal Medicine Adolescent Medicine; Emergency Provider Emergency Medicine; PCP Internal Medicine Adolescent Medicine; Visit Provider Internal Medicine Adolescent Medicine
PROC: 0DBN0ZZ Excision of Sigmoid Colon, Open Approach (ICD-10-PCS; CPT 49000; principal; 2022-11-02 15:30)
DX: K57.20 Diverticulitis of large intestine with perforation and abscess without bleeding (principal); A41.9 Sepsis, unspecified organism; F39 Unspecified mood [affective] disorder
CPT/HCPCS: 44140; 36410; 36415; 36569; 71045; 74018; 74021; 74176; 74177; 74250; 80048; 80053; 80061; 81001; 82140; 82465; 82962; 83605; 83690; 83735; 84100; 84478; 84484; 85007; 85025; 87040; 87070; 87077; 87186; 87205; 93005; 97162; 97164; 99285; C1751; C9803; J0131; J1335; J2405; J2543; Q9967; U0003; U0005

== ENCOUNTER → 2023-03-11 10:57 | Outpatient (CLI) | payer BC, SELFPAY ==
[2023-03-11 12:17] LABS: Blood Urea Nitrogen 12 mg/dl (9-20); Estimated Glomerular Filt Rate 75 ml/min (>60); GFR (African American) 91 ML/MIN (>60)
== END ==
PROVIDERS: PCP Internal Medicine Adolescent Medicine; Visit Provider Surgery
DX: Z01.812 Encounter for preprocedural laboratory examination (principal)
CPT/HCPCS: 36415; 82565; 84520

== ENCOUNTER → 2023-03-20 08:06 | Outpatient (CLI) | payer BC, SELFPAY ==
--- NOTE | 2023-03-20 08:06 | CT_ITS ---
FINAL REPORT TECHNIQUE: After the administration of intravenous contrast, axial images were obtained through the abdomen and pelvis by computed tomography. This study was performed with technique to keep radiation doses as low as reasonably achievable, (ALARA). Individualized dose reduction techniques using automated exposure control or adjustment of the MA and/or KV according to the patient's size were employed. CLINICAL HISTORY: hernia COMPARISON: 11/09/2022 FINDINGS: Abdomen: The lung bases demonstrate mild left lower lobe opacities which are nonspecific, favor mild scarring. Patient is status postcholecystectomy. The liver is normal in size and attenuation. The spleen is unremarkable. The adrenals are normal. The pancreas is unremarkable. The kidneys enhance appropriately. The aorta is normal in caliber. There has been interval improvement in previously seen ascites. A 13 mm focus of soft tissue or fluid is seen in the left lateral abdomen on image 34 of uncertain significance. Findings may represent postoperative change. However, neoplastic involvement is not excluded. There is a midline ventral hernia containing multiple bowel loops. There is no evidence of bowel obstruction. Pelvis: The appendix is normal. There are postoperative changes of the sigmoid colon with a Angelo's pouch. There is a left pelvic colostomy. There is worsening wall thickening of the descending colon with adjacent inflammation with an apparent consistent with colitis there is a small inguinal hernia containing fat. The urinary bladder is unremarkable. There is no free fluid or adenopathy. IMPRESSION: Worsening wall thickening of the descending colon and adjacent inflammation with an appearance consistent with worsening colitis. Focal soft tissue or fluid in the lateral abdomen which may represent postoperative change. However, neoplastic involvement not excluded. Recommend 3-6-month follow-up CT with contrast. Improving ascites. Reviewed, Interpreted and Dictated by Popeye Mooney III, MD Transcribed by Cheryl Escobedo Authenticated and [facility][1]
== END ==
PROVIDERS: PCP Internal Medicine Adolescent Medicine; Visit Provider Surgery
DX: Z93.3 Colostomy status (principal)
CPT/HCPCS: 74177; Q9967

== ENCOUNTER 2023-04-25 06:24 | Day surgery (SDC) | payer BC, SELFPAY ==
--- NOTE | 2023-04-23 12:35 | SUR.PREOP ---
Called to preop pt and is at work so could not talk long. Unable to review admission history at this time. Note left on chart to review DOS.
[2023-04-23 12:36] VITALS: BMI 22.4
[2023-04-25 06:47] VITALS: BP 141/70; PULSE 52; RESP 18; TEMP 36.6; O2SAT 97
--- NOTE | 2023-04-25 07:01 | EXP.ANES.CKL ---
[facility] Disclaimer: The information contained in this section may have been updated after the patient was seen, as this information can be updated by other users. Medical History (Updated 04/25/23 @ 06:45 by Stepan Logan RN) Cataract History of diverticulitis Surgical History H/O knee surgery History of cholecystectomy History of colon resection History of colonoscopy History of hernia surgery Previous back surgery Family History (Updated 04/25/23 @ 06:46 by Stepan Logan RN) Other Family history of cancer Family history of glaucoma Social History (Updated 04/25/23 @ 06:46 by Stepan Logan RN) Smoking Status: Never smoker alcohol intake: never substance use type: denies use current occupational status: employed Travel in the last 8 weeks: None [facility] Anesthesia Checklist Patient Identification Patient Identification: Arm Band Structural Data Admitted From: Home Planned Operative Procedure/s: colonoscopy Consent for Planned Operative Procedure(s) Verified: Yes Verified Documents: Surgical Consent and History and Physical NPO Status Verified Time NPO: 00:00 Additional verifications Anesthesia Reactions: No Airway Assessment Mallampati Score:: Class I C-Spine Mobility Assessed: Yes TMJ Mobility Assessed: Yes Dentition: Good Dentition Neurological Assessment Level of Consciousness: Awake and Alert Anesthesia Plan Anesthesia Risk discussed: Yes Anesthesia Plan: Verified ASA Class: II Anesthesia Type: MAC
[2023-04-25 07:29] VITALS: O2SAT 99
--- NOTE | 2023-04-25 07:58 | HMH.SCOPE ---
Procedure: Date: 04/25/23 Patient Date of :: 1960 Procedure Performed:: Colonoscopy via colostomy Flexible proctoscopy Indications:: Patient presents for colonoscopy. He is a 62-year-old male who had undergone Angelo's procedure with sigmoid resection and end colostomy with takedown of splenic flexure on 11/02/2022. Pathology revealed ruptured diverticulitis with associated serositis. No evidence of malignancy. He never had previous colonoscopy. On recent examination follow-up in the office there was concern for possible significant incisional hernia on examination. I had him undergo CT scan. Patient presents to the office for follow-up after his CT scan. By report this reveals worsening wall thickening of the descending colon and adjacent inflammation with an appearance consistent with worsening colitis. Focal soft tissue or fluid in the lateral abdomen which may represent postoperative change. However, neoplastic involvement not excluded. There is no mention of incisional hernia. Arrangements were made for possible combined incisional hernia repair along with colostomy takedown at [facility]. In anticipation of this plan was made to proceed with colonoscopy. Performing Provider:: Popeye Chauhan MD Referring Provider:: . Sedation:: MAC sedation Procedure:: Patient history was obtained and appropriate physical examination was performed. Patient's medications and allergies were reviewed. Informed consent was obtained after explaining the benefits, alternatives, and risks of the procedure including, but not limited to, bleeding, perforation, missed lesions, and adverse reaction to anesthesia medications. Patient was transported to endoscopy procedure room. Patient was connected to monitoring devices. Throughout the procedure the patient's blood pressure, pulse, and oxygen saturations were monitored continuously. Patient identification and planned procedure were verified by the staff. Patient was maintained in a supine position. Digital examination was performed of colostomy. Variable stiffness Olympus colonoscope was inserted and advanced under direct visualization to the cecum. Adequacy of the colonic preparation was noted. The colonoscope was advanced a short distance into the terminal ileum. The colonoscope was then slowly withdrawn while carefully examining the color, texture, anatomy, and integrity of the mucosoa circumferentially. Within the rectum retroflexion was performed. Colonoscope was then withdrawn. Colonic preparation was good. There were no polyps or additional significant diverticuli noted in the remaining colon. Patient was then repositioned for proctosigmoidoscopy in the lateral position. Digital anal rectal examination was performed. Variable stiffness Olympus colonoscope was inserted via the anus. Impacted mucus was encountered in the rectum. Thorough trans colonoscopic irrigation was performed and digital removal of the mucus was performed. Colonoscope was then reinserted and advanced to approximately 20 cm where staple line was encountered. Proctosigmoidoscopy relatively unremarkable otherwise. . Findings:: Normal colon and rectum Recommendations:: May proceed with colostomy reversal Complications:: None immediate Estimated blood obtained (mL): 0 Colonoscopy Component Colonoscopy Component Was a colonoscopy performed during today's procedure?: Yes Recommended follow up colonoscopy of at least 10 years?: Yes
[2023-04-25 08:00] VITALS: BP 108/74; PULSE 70; RESP 17; TEMP 36.4; O2SAT 93
[2023-04-25 08:10] VITALS: BP 118/82; PULSE 70; RESP 17; O2SAT 95
[2023-04-25 08:20] VITALS: BP 138/76; PULSE 60; RESP 18; O2SAT 96
[2023-04-25 08:30] VITALS: BP 135/75; PULSE 49; RESP 17; O2SAT 99
--- NOTE | 2023-04-25 12:06 | EXP.GEN.HP ---
HPI HPI HPI: Patient presents for colonoscopy. He is a 62-year-old male who had undergone Angelo's procedure with sigmoid resection and end colostomy with takedown of splenic flexure on 11/02/2022. Pathology revealed ruptured diverticulitis with associated serositis. No evidence of malignancy. He never had previous colonoscopy. On recent examination follow-up in the office there was concern for possible significant incisional hernia on examination. I had him undergo CT scan. Patient presents to the office for follow-up after his CT scan. By report this reveals worsening wall thickening of the descending colon and adjacent inflammation with an appearance consistent with worsening colitis. Focal soft tissue or fluid in the lateral abdomen which may represent postoperative change. However, neoplastic involvement not excluded. There is no mention of incisional hernia. It was felt that he would require complex procedure with likely laparotomy with separation of abdominal components for his incisional hernia and colostomy takedown. He was [facility] to [facility]. Colonoscopy was to be performed in preparation of colostomy takedown. [facility] Disclaimer: The information contained in this section may have been updated after the patient was seen, as this information can be updated by other users. Medical History (Updated 04/25/23 @ 06:45 by Stepan Logan RN) Cataract History of diverticulitis Surgical History H/O knee surgery History of cholecystectomy History of colon resection History of colonoscopy History of hernia surgery Previous back surgery Family History (Updated 04/25/23 @ 06:46 by Stepan Logan RN) Family history of cancer Family history of glaucoma Social History (Updated 04/25/23 @ 06:46 by Stepan Logan RN) Smoking Status: Never smoker alcohol intake: never substance use type: denies use current occupational status: employed Travel in the last 8 weeks: None Meds Home Medications and Allergies Home Medications Medication Instructions Recorded Confirmed Type buspirone 5 mg tablet 2.5 mg PO DAILY Anxiety 05/05/18 04/23/23 History mirtazapine 15 mg tablet 15 mg PO HS MOOD 05/05/18 04/23/23 History New Prescriptions to Start Prescriptions: Allergies Allergy/AdvReac Type Severity Reaction Status Date / Time ciprofloxacin [From CIPRO] Allergy Mild Verified 04/25/23 06:43 prednisone [PREDNISONE] Allergy Mild Verified 04/25/23 06:43 sulfamethoxazole Allergy Unknown Verified 04/25/23 06:43 [From BACTRIM] trimethoprim [From BACTRIM] Allergy Unknown Verified 04/25/23 06:43 Exam Data for Last 24 hours Vital signs and Labs for Last 24 Hours: Temp Pulse Resp BP Pulse Ox O2 Del Method O2 Flow Rate 97.5 F L 49 L 17 135/75 99 Room Air 5 04/25/23 08:00 04/25/23 08:30 04/25/23 08:30 04/25/23 08:30 04/25/23 08:30 04/25/23 08:30 04/25/23 07:29 I & O for Last 24 hours: Intake & Output 04/23/23 04/24/23 04/25/23 04/26/23 11:59 11:59 11:59 11:59 Weight 165 lb Constitutional Constitutional: no acute distress *Routine HEENT Exam Head: Present normocephalic Eye: Present EOMI and PERRL ENT: Present mucous membranes moist *Routine Neck Exam Neck: Present supple; Absent lymphadenopathy *Routine Respiratory Exam Respiratory: Present CTA bilaterally *Routine Cardiovascular Exam Cardiovascular: Present RRR *Routine Abdominal Exam Abdominal: Present soft, normoactive bowel sounds, hernia and ostomy; Absent tenderness *Routine Rectal Exam Rectal:: deferred *Routine Genitalia Exam Genitalia:: deferred *Routine Extremities Exam Extremities: Absent cyanosis, clubbing or edema *Routine Skin Exam Skin: Present warm; Absent rash *Routine Neurological Exam Neurological: Present alert and oriented X3 Assessment and Plan *Assessment and plan (1) Colostomy in place:
== END 2023-04-25 08:55 | disposition home or self-care (01) ==
PROVIDERS: PCP Internal Medicine Adolescent Medicine; Visit Provider Surgery
PROC: 0DJD8ZZ Inspection of Lower Intestinal Tract, Via Natural or Artificial Opening Endoscopic (ICD-10-PCS; CPT 44388; principal; 2023-04-25 07:30)
DX: Z12.11 Encounter for screening for malignant neoplasm of colon (principal); Z93.3 Colostomy status; Z90.49 Acquired absence of other specified parts of digestive tract
CPT/HCPCS: 44388; 45330; J2704

== ENCOUNTER 2024-01-08 13:53 | Emergency (ER) | payer MEDICARE, OTHER, SELFPAY ==
[2024-01-08 14:01] VITALS: BP 162/78; PULSE 58; RESP 20; TEMP 36.8; O2SAT 100; BMI 23.7
--- NOTE | 2024-01-08 14:05 | ED_ITS ---
<Statement entered by So Mathew DO - 01/08/24 15:53> I was consulted by the MARIA A, and we discussed the complexity of the problems being addressed. I approved the treatment and management plan for this patient's care in the emergency department, thus performing a substantive portion of the medical decision making. So Mathew DO Discharge Plan Disposition Patient Disposition: Home, Self-Care Condition: Good Prescriptions Prescriptions: New cephalexin 500 mg capsule 500 mg PO BID 10 Days Qty: 20 0RF No Action buspirone 5 mg tablet 2.5 mg PO DAILY mirtazapine 15 mg tablet 15 mg PO HS Referrals Follow up/Referrals: Antonio Blood MD [Primary Care Provider] - See instructions Activity Restrictions/Add. Instructions Additional Instructions/Restrictions: Please keep wound clean dry and covered. You may wash with soap and water. Sutures need to be removed in 7 to 10 days. You may return to your PCP, [facility], or ER for suture removal. Please return for any increased redness swelling drainage pain as needed. Clinical Impressions Clinical Impression: Laceration Instructions Patient Instructions: DI for Laceration Repair Discharge ED Provider: So Mathew General Adult HPI General Chief complaint: Wound/Laceration Stated complaint: AO-laceration to top of L hand Time Seen by Provider: 01/08/24 14:05 Mode of Arrival: Ambulatory Source of Information: Patient Limitations: No Limitations Description of Symptoms (Recalled from ER Triage Doc. by RN): pt to ed c/o laceration to the top of left hand. pt states he was unrolling fence wire and it cut his hand. pt denies numbness/tingling. pt states he has full range of motion to his hand. History of Present Illness HPI narrative: Patient presents for evaluation of a laceration to the back of his left hand. Patient was unrolling naveed wire and the wire caught on the back of his left hand lacerating it. Patient has full range of motion is neurovascularly intact distally. Related Data Home Medications Medication Instructions Recorded Confirmed buspirone 5 mg tablet 2.5 mg PO DAILY Anxiety 05/05/18 05/15/23 mirtazapine 15 mg tablet 15 mg PO HS MOOD 05/05/18 05/15/23 Previous Rx's Medication Instructions Recorded cephalexin 500 mg capsule 500 mg PO BID 10 days #20 caps 01/08/24 Allergies Allergy/AdvReac Type Severity Reaction Status Date / Time ciprofloxacin [From CIPRO] Allergy Mild Verified 05/15/23 09:14 prednisone [PREDNISONE] Allergy Mild Verified 05/15/23 09:14 sulfamethoxazole Allergy Unknown Verified 05/15/23 09:14 [From BACTRIM] trimethoprim [From BACTRIM] Allergy Unknown Verified 05/15/23 09:14 [facility] Disclaimer: The information contained in this section may have been updated after the patient was seen, as this information can be updated by other users. Medical History Cataract History of diverticulitis Surgical History H/O knee surgery History of cholecystectomy History of colon resection History of colonoscopy History of hernia surgery Previous back surgery Family History Other Family history of cancer Family history of glaucoma Social History Smoking Status: Never smoker alcohol intake: never substance use type: denies use current occupational status: employed Travel in the last 8 weeks: None ROS Obtained: Yes Systems reviewed as appropriate & no additional complaints except as documented Physical Exam General General appearance: alert and in no apparent distress Neck Neck exam: Present trachea midline Respiratory Respiratory exam: Present normal lung sounds bilaterally Cardiovascular Cardiovascular exam: Present regular rate and normal rhythm Extremities Exam Extremities exam: Absent normal inspection (Patient has a cross shaped laceration that is 6 x 4.5 cm and another smaller linear laceration that is 2.5 cm on the dorsum of his left hand) Expanded Upper Extremity Exam Left: Hand L/R back image: 2 1. 6 cm 2. 4.5 cm 3. 2.5 cm Neurological Exam Neurological exam: Present alert and oriented X3 Medical Decision Making Ras Inquiry Pt receiving controlled substance: No Vital Signs: 01/08/24 14:01 01/08/24 14:30 01/08/24 15:31 Temperature 98.3 F 98 F Temperature Source Oral Oral Pulse Rate 58 L 71 Pulse Rate [Left Radial] 58 L Respiratory Rate 20 18 Blood Pressure 147/75 H 145/77 H Blood Pressure [Right Arm] 162/78 H Blood Pressure Mean [Right Arm] 106 02 Sat by Pulse Oximetry 100 99 Oxygen Delivery Method Room Air Room Air Room Air Orders (Tests/Meds): ED MEDICATIONS Discontinued Medications Generic Name Dose Route Start Last Admin Trade Name Carolyne PRN Reason Stop Dose Admin Cephalexin HCl 500 mg 01/08/24 15:07 01/08/24 15:11 Cephalexin 500mg Capsule PO 01/08/24 15:08 500 mg ONCE ONE Administration Lidocaine/Epinephrine 20 ml 01/08/24 14:13 01/08/24 15:12 Lidocaine 1% W/Epi 1:100,000 20ml Vial SQ 01/08/24 14:14 5 ml ONCE ONE Administration Tetanus/Reduced Diphtheria/Acell Pertussis 0.5 ml 01/08/24 14:13 01/08/24 15:11 Tet/Diphth/Pert-Adult 0.5ml Syringe IM 01/08/24 14:14 0.5 ml .ONCE ONE Administration Medical Decision Narrative: In summary patient is a 63-year-old male who presents to the emergency department for evaluation of left hand laceration. Patient is hemodynamically stable upon arrival, febrile. Physical exam is remarkable for superficial laceration to the dorsum of his left hand. First laceration is a T shaped and second laceration is linear. Patient is neurovascularly intact distally and has full range of motion. Differential diagnosis includes laceration versus tendon injury versus deep space injury. After irrigation wound sterilely prepped and draped and exploration shows that no further workup or interventions are necessary as patient only has superficial skin laceration with no deep structure injury and they are intact fully to exam and neurovascular intact distally. Largest laceration is 6 x 4.5 cm that was repaired with 17 4.0 nylon sutures and laceration #2 was 2.5 cm cyst repaired with 4 4.0 nylon sutures. Patient given first dose of Keflex prescription and the rest sent to his pharmacy Procedures Laceration Laceration 1: Site: hand (Dorsum) Side (If applicable): left Size (cm): 10.5 Description: stellate Depth: simple, single layer Local Anesthetic: lidocaine 1% and with epi Amount of anesthesia used (mL): 15 Pre-repair: wound explored, irrigated extensively and deep structures intact Skin layer closed with: nylon Size (cm): 4-0 Number of sutures: 17 Technique: simple, interrupted Laceration 2: Site: hand Side (If applicable): left Size (cm): 2.5 Description: linear Depth: simple, single layer Local Anesthetic: lidocaine 1% and with epi Amount of anesthesia used (mL): 5 Pre-repair: wound explored, irrigated extensively and deep structures intact Skin layer closed with: nylon Size (cm): 4-0 Number of sutures: 4 Technique: simple, interrupted Critical Care Critical Care Time Critical Care Time: No
--- NOTE | 2024-01-08 14:10 | PC.NURSE ---
Pt given tub of warm water with hibacleanse to soak hand for skin tear.
[2024-01-08 14:30] VITALS: BP 147/75; PULSE 58; O2SAT 99
[2024-01-08] MEDS: cephALEXin 500MG CAPSULE 500 MG PO (15:11)
[2024-01-08] MEDS: TET/DIPHTH/PERT-ADULT 0.5ML SYRINGE 0.5 ML IM (15:11)
[2024-01-08] MEDS: LIDOCAINE 1% W/EPI 1:100,000 20ML VIAL 20 ML SQ (15:12)
[2024-01-08 15:31] VITALS: BP 145/77; PULSE 71; RESP 18; TEMP 36.6; O2SAT 97
== END 2024-01-08 15:32 | disposition home or self-care (01) ==
PROVIDERS: Emergency Provider Emergency Medicine; PCP Internal Medicine Adolescent Medicine
DX: S61.412A Laceration without foreign body of left hand, initial encounter (principal); W26.8XXA Contact with other sharp object(s), not elsewhere classified, initial encounter; Z23 Encounter for immunization
CPT/HCPCS: 12005; 90471; 90715; 99283

== ENCOUNTER 2024-09-21 08:16 | Day surgery (SDC) | payer MEDICARE, OTHER, SELFPAY ==
[2024-09-20 12:32] VITALS: BMI 23.7
[2024-09-21 08:45] VITALS: BP 171/89; PULSE 63; RESP 18; TEMP 37.3; O2SAT 95
[2024-09-21] MEDS: TETRACAINE 0.5% OPTH SOL 15ML OP (08:50)
[2024-09-21] MEDS: TROPICAMIDE 1% OPTH SOLN 2ML OP (08:50)
[2024-09-21] MEDS: APRACLONIDINE 0.5% OPHTH SOLN 5ML OP (08:50)
[2024-09-21] MEDS: PHENYLEPHRINE 2.5% OPHTH SOLN 2ML OP (08:50)
--- NOTE | 2024-09-21 10:45 | HMH.PROCNOTE ---
[facility] Procedure Note Date: 09/21/24 Time: 10:45 Procedure Note:: Preoperative diagnosis: Posterior Opacification both eyes Postoperative diagnosis: same Operation: YAG Laser Capsulotomy The patient has undergone uneventful cataract surgery in the past. The patient has noticed that the vision has decreased from the previous good level postop. The patient reports that he/she is having trouble reading and/or driving or that glare is giving them a problem. On exam, the patient was found to have visually significant posterior capsular opacification. The treatment options, risks and benefits were explained and the patient elected to have YAG laser capsulotomy in an attempt to improve the vision. Of note, the best corrected visual acuity is in the 23/30 or worse range by refraction or glare testing. The eyes were dilated and 1 drop of 0.5% Iopidine applied. YAG laser energy was applied to the posterior capsular bag with good formation of an opening and no complications were noted. The patient will be seen back for follow up in 2 weeks. OD 20 pulses/77mj OS 18 pulses/70mj
== END 2024-09-21 10:27 | disposition home or self-care (01) ==
LOC: OUTP 08:17
PROVIDERS: PCP Internal Medicine Adolescent Medicine; Visit Provider Ophthalmology
PROC: (CPT 66821; principal; 2024-09-21 12:00)
DX: H26.493 Other secondary cataract, bilateral (principal)
CPT/HCPCS: 66821

== ENCOUNTER 2024-10-15 15:33 | Emergency (ER) | payer MEDICARE, OTHER, SELFPAY ==
[2024-10-15 16:12] VITALS: BP 135/79; PULSE 111; RESP 17; TEMP 37.7; O2SAT 96; BMI 26.3
--- NOTE | 2024-10-15 16:24 | ED_ITS ---
Discharge Plan Disposition Patient Disposition: Home, Self-Care Condition: Good Prescriptions Prescriptions: New oseltamivir [Tamiflu] 75 mg capsule 75 mg PO BID 5 Days Qty: 10 0RF ondansetron 4 mg tablet,disintegrating 4 mg PO QID PRN (Reason: nausea and vomiting) Qty: 10 0RF No Action buspirone 5 mg tablet 2.5 mg PO DAILY mirtazapine 15 mg tablet 15 mg PO HS Referrals Follow up/Referrals: Antonio Blood MD [Primary Care Provider] - See instructions Activity Restrictions/Add. Instructions Additional Instructions/Restrictions: Knee taking Tylenol alternating every 4 hours with Motrin to control your fever and constitutional symptoms. You have any continuing new or worsening signs or symptoms follow-up with your PCP return to the ER. I sent Tamiflu into your pharmacy. Please take it till it is gone. Clinical Impressions Clinical Impression: Influenza A Print Language Print Language: Belgian Discharge ED Provider: Asa Valencia General Adult HPI <LUIS CARLOS Ronquillo - Last Filed: 10/15/24 23:31> General Chief complaint: Weakness Stated complaint: exp flu- heart racing, fever, nausea, body aches Time Seen by Provider: 10/15/24 16:24 Mode of Arrival: Wheelchair Source of Information: Patient Description of Symptoms (Recalled from ER Triage Doc. by RN): pt to the ED with weakness, cough, congestion, fever and nausea since this morning. pt also reports 3 episodes of vomiting and mild diarrhea with decreased oral intake. pt sent from PCP for possible dehydration History of Present Illness HPI narrative: Patient presents for evaluation of weakness cough congestion fever nausea vomiting diarrhea. He denies chest pain shortness of breath hemoptysis hematochezia melena hematemesis hematuria dysuria. [place] any focal neurologic symptoms. Related Data Home Medications ?Medication ?Instructions ?Recorded ?Confirmed buspirone 5 mg tablet 2.5 mg PO DAILY Anxiety 05/05/18 09/20/24 mirtazapine 15 mg tablet 15 mg PO HS MOOD 05/05/18 09/20/24 Previous Rx's ?Medication ?Instructions ?Recorded ondansetron 4 mg disintegrating 4 mg PO QID PRN nausea and 10/15/24 tablet vomiting #10 tabs oseltamivir 75 mg capsule (Tamiflu) 75 mg PO BID 5 days #10 caps 10/15/24 Allergies Allergy/AdvReac Type Severity Reaction Status Date / Time ciprofloxacin (From CIPRO) Allergy Mild Rash Verified 09/20/24 12:30 prednisone (PREDNISONE) Allergy Mild Other Verified 09/20/24 12:30 sulfamethoxazole (From Allergy Unknown Shakiness Verified 09/20/24 12:30 BACTRIM) trimethoprim (From BACTRIM) Allergy Unknown Shakiness Verified 09/20/24 12:30 PFSH <LUIS CARLOS Ronquillo - Last Filed: 10/15/24 23:31> PFS Disclaimer: The information contained in this section may have been updated after the patient was seen, as this information can be updated by other users. Medical History Cataract History of diverticulitis Surgical History H/O knee surgery History of cholecystectomy History of colon resection History of colonoscopy History of hernia surgery Previous back surgery Family History Other Family history of cancer Family history of glaucoma Social History Smoking Status: Never smoker alcohol intake: never substance use type: denies use current occupational status: employed Travel in the last 8 weeks: None caffeine: Yes Have you lived/traveled outside [place] in past 30 days?: No Contact w/someone who lives/traveled outside US past 30 days?: No Exposure to someone with infectious disease in past 14 days?: No Do you have a fever (greater than 100.4 F or 38 C)?: Yes Have you tested positive for COVID-19: No Exposed to someone with COVID-19 in past 14 days?: No Do you have a sore throat?: No Do you have a cough?: No Do you have any weakness?: No Do you have any diarrhea?: No Are you experiencing any unusual bleeding?: No Do you have any muscle aches/pain?: Yes Do you have any abdominal pain?: No Are you experiencing loss of taste or smell?: No Other Medical History Have you received the Flu Vaccine for this season: No Have you received the Pneumonia Vaccine: No <LUIS CARLOS Ronquillo - Last Filed: 10/15/24 23:31> ROS Obtained: Yes Systems reviewed as appropriate & no additional complaints except as documented Physical Exam <LUIS CARLOS Ronquillo - Last Filed: 10/15/24 23:31> General General appearance: alert and in no apparent distress Respiratory Respiratory exam: Present normal lung sounds bilaterally Cardiovascular Cardiovascular exam: Present tachycardia Neurological Exam Neurological exam: Present alert and oriented X3 Medical Decision Making <LUIS CARLOS Ronquillo - Last Filed: 10/15/24 23:31> Medical Records Medical records reviewed: Yes I reviewed the patient's medical records. Screening: Per USPSTF and CDC recommendations, given the prevalence of disease in our region, it is our hospital?s policy to screen for HIV and viral Hepatitis for all patients aged 18 and over and those with ongoing risk factors. Ras Inquiry Pt receiving controlled substance: No Vital Signs: 10/15/24 16:12 10/15/24 17:01 10/15/24 17:30 Temperature 99.9 F H Temperature Source Oral Pulse Rate 101 H 103 H Pulse Rate [Left Radial] 111 H Respiratory Rate 17 16 18 Blood Pressure 132/74 131/72 Blood Pressure [Right Arm] 135/79 Blood Pressure Mean 93 83 Blood Pressure Mean [Right Arm] 97 Blood Pressure Source Blood Pressure Source [Right Arm] Automatic Cuff Blood Pressure Position Blood Pressure Position [Right Arm] Sitting 02 Sat by Pulse Oximetry 96 96 94 L Oxygen Delivery Method Room Air 10/15/24 19:00 10/15/24 19:10 Temperature 98.9 F Temperature Source Oral Pulse Rate 90 Pulse Rate [Left Radial] Respiratory Rate 18 18 Blood Pressure 113/57 L 113/57 L Blood Pressure [Right Arm] Blood Pressure Mean Blood Pressure Mean [Right Arm] Blood Pressure Source Automatic Cuff Blood Pressure Source [Right Arm] Blood Pressure Position Sitting Blood Pressure Position [Right Arm] 02 Sat by Pulse Oximetry Oxygen Delivery Method Room Air Lab Data Lab results reviewed: Yes I reviewed the patient's lab results. Lab Results 10/15/24 16:28: SARS-CoV-2 (PCR) Not detected, Influenza A Untype (PCR) Detected A, Influenza Type B (PCR) Not detected 10/15/24 16:29: HIV Ag/Ab Combo Qual Negative 10/15/24 16:30: WBC 12.4 H, RBC 5.22, Hgb 15.8, Hct 46.7, MCV 89.5, MCH 30.3, MCHC 33.8, RDW 11.9, Plt Count 274, MPV 10.8 H, Neut % (Auto) 85.8 H, Lymph % (Auto) 5.4 L, [place] % (Auto) 7.5, Eos % (Auto) 0.6, Baso % (Auto) 0.3, Neut # (Auto) 10.6 H, Lymph # (Auto) 0.7, [place] # (Auto) 0.9, Eos # (Auto) 0.1, Baso # (Auto) 0.0, PT 10.9, INR 0.97, D-Dimer 1.13 H, Sodium 136, Potassium 3.9, Chloride 100, Carbon Dioxide 27, Anion Gap 12.9, BUN 14, Creatinine 1.10, Estimated Creat Clear 82, Estimated GFR 67, Est GFR ( Amer) 81, Glucose 106 H, Calcium 9.9, Magnesium 1.5 L, Total Bilirubin 1.0, AST 46, ALT 51, Alkaline Phosphatase 102, Troponin I < 0.01, NT-Pro-B Natriuret Pep 116, Total Protein 8.2 D, Albumin 5.3 H, Globulin 2.9, Albumin/Globulin Ratio 1.8, Procalcitonin 0.752, TSH 1.77, Free T4 Index 3.3 L, Thyroxine (T4) 10.2, T3 Uptake 32, HCV Ab VANESSA w/Rflx PCR Qn Negative 10/15/24 16:49: VBG pH 7.39, VBG pCO2 41.0, VBG pO2 32.0, VBG HCO3 24.4, VBG Total CO2 25.6, VBG O2 Saturation 61.3, VBG Base Excess -0.6, VBG Lactic Acid 2.1 H 10/15/24 16:30 10/15/24 16:30 Orders (Tests/Meds): ED MEDICATIONS Discontinued Medications Generic Name Dose Route Start Last Admin Trade Name Freq PRN Reason Stop Dose Admin Acetaminophen 1,000 mg 10/15/24 16:47 10/15/24 17:00 Acetaminophen 1,000mg/100ml Vial IV 10/15/24 16:48 1,000 mg ONCE ONE Administration Sodium Chloride 1,000 mls @ 999 mls/hr 10/15/24 16:47 10/15/24 16:58 Sod Chlor 0.9% 1000ml Bag IV 10/15/24 17:47 999 mls/hr .Q1H1M ONE Administration Magnesium Sulfate 2 gm in 50 mls @ 50 mls/hr 10/15/24 17:26 10/15/24 17:42 Magnesium Sulfate 2gm/50ml Premix IV 10/15/24 18:25 50 mls/hr ONCE ONE Administration Iopamidol 70 ml 10/15/24 17:55 10/15/24 17:57 Iopamidol-370 (76%);100ml Bottle IV 10/15/24 17:56 70 ml ONCE ONE Administration Promethazine HCl 25 mg 10/15/24 16:21 10/15/24 16:25 Promethazine Hcl 25mg/Ml 1ml Vial IV 10/15/24 16:22 25 mg ONCE ONE Administration Sodium Chloride 25 ml 10/15/24 16:21 10/15/24 16:25 Sodium Chloride 0.9% 25ml Bag IV 10/15/24 16:22 25 ml ONCE ONE Administration Sodium Chloride 10 ml 10/15/24 17:55 10/15/24 17:56 Sodium Chloride 0.9% 10ml Syr (Rad Only) IV 10/15/24 17:56 10 ml ONCE ONE Administration Sodium Chloride 50 ml 10/15/24 17:55 10/15/24 17:56 0.9 % Sodium Chloride 50 Ml Vial IV 10/15/24 17:56 50 ml ONCE ONE Administration ORDERS Category Date Time Status CT angio chest PE protocol Stat Cat Scan 10/15/24 17:43 Completed Chest XR -- portable [XR chest portable] Stat Exams 10/15/24 16:51 Completed BNP [NT Pro Brain Natriuretic Pep.] Stat Lab 10/15/24 16:30 Completed CBC w/Auto Diff [Complete Blood Count Auto Diff] Stat Lab 10/15/24 16:30 Completed CMP [Comprehensive Metabolic Panel] Stat Lab 10/15/24 16:30 Completed D-Dimer Stat Lab 10/15/24 16:30 Completed HIV Combo Stat Lab 10/15/24 16:29 Completed Hepatitis C Ab Qual. W/ RFX Stat Lab 10/15/24 16:30 Completed INR [Prothrombin Time INR] Stat Lab 10/15/24 16:30 Completed Magnesium Stat Lab 10/15/24 16:30 Completed Procalcitonin Stat Lab 10/15/24 16:30 Completed Rapid PCR Covid and Flu A/B Stat Lab 10/15/24 16:28 Completed Thyroid Panel Stat Lab 10/15/24 16:30 Completed Trop I [Troponin I] Stat Lab 10/15/24 16:30 Completed VBG [Venous Blood Gas] Stat RT 10/15/24 16:49 Completed HEART Score History (anamnesis): Slightly suspicious ECG: Non-specific disturbance Age: >65 years Risk factors: 1-2 risk factors Troponin: </= normal limit HEART Score: 4 Medical Decision Narrative: In summary patient is a 64-year-old male who presents to the emergency department for evaluation of weakness malaise myalgias cough but heart rate. Patient is normotensive 135/79 tachycardic at 111 with sinus tachycardia the bedside monitor breathing 17 times a minute satting at 96% on room air upon arrival, the fever of 99.9. Physical exam is remarkable for a well-nourished well-developed but unwell appearing 64-year-old male who is currently in no acute distress. Breath sounds clear and equal bilaterally to the bases without adventitious sounds, abdomen soft nontender no rebound no guarding no rigidity. No dependent edema noted.. Differential diagnosis includes pneumonia versus upper or lower respiratory tract infection versus ACS versus tachycardia dehydration versus PE etc. Initial workup will be conducted with hematologic labs twelve-lead EKG respiratory swabs CTA PE protocol. Initial interventions include crystalloid bolus Toradol Tylenol Zofran. Initial workup reviewed by me shows that his white count is 12.4 with absolute neutrophil count of 10.6 VBG shows a preserved pH VBG lactic acid 2.1, glucose 106 magnesium 1.5 with remainder of his hematologic labs nonactionable. Respiratory swabs are positive for influenza A. My informed interpretation of CTA PE protocol shows no evidence of thrombus or acute intrathoracic abnormality.. Upon repeat evaluation patient is tolerating p.o his heart rate has come down to 90 and he subjectively feels significantly better. Given this patient is appropriate for discharge with prescription for Tamiflu and Zofran and strict return precautions and recommendations for symptomatic and supportive care including Tylenol Motrin. <Asa Valencia MD - Last Filed: 10/15/24 23:36> Vital Signs: 10/15/24 16:12 10/15/24 17:01 10/15/24 17:30 Temperature 99.9 F H Temperature Source Oral Pulse Rate 101 H 103 H Pulse Rate [Left Radial] 111 H Respiratory Rate 17 16 18 Blood Pressure 132/74 131/72 Blood Pressure [Right Arm] 135/79 Blood Pressure Mean 93 83 Blood Pressure Mean [Right Arm] 97 Blood Pressure Source Blood Pressure Source [Right Arm] Automatic Cuff Blood Pressure Position Blood Pressure Position [Right Arm] Sitting 02 Sat by Pulse Oximetry 96 96 94 L Oxygen Delivery Method Room Air 10/15/24 19:00 10/15/24 19:10 Temperature 98.9 F Temperature Source Oral Pulse Rate 90 Pulse Rate [Left Radial] Respiratory Rate 18 18 Blood Pressure 113/57 L 113/57 L Blood Pressure [Right Arm] Blood Pressure Mean Blood Pressure Mean [Right Arm] Blood Pressure Source Automatic Cuff Blood Pressure Source [Right Arm] Blood Pressure Position Sitting Blood Pressure Position [Right Arm] 02 Sat by Pulse Oximetry Oxygen Delivery Method Room Air Lab Data Lab Results 10/15/24 16:28: SARS-CoV-2 (PCR) Not detected, Influenza A Untype (PCR) Detected A, Influenza Type B (PCR) Not detected 10/15/24 16:29: HIV Ag/Ab Combo Qual Negative 10/15/24 16:30: WBC 12.4 H, RBC 5.22, Hgb 15.8, Hct 46.7, MCV 89.5, MCH 30.3, MCHC 33.8, RDW 11.9, Plt Count 274, MPV 10.8 H, Neut % (Auto) 85.8 H, Lymph % (Auto) 5.4 L, [place] % (Auto) 7.5, Eos % (Auto) 0.6, Baso % (Auto) 0.3, Neut # (Auto) 10.6 H, Lymph # (Auto) 0.7, [place] # (Auto) 0.9, Eos # (Auto) 0.1, Baso # (Auto) 0.0, PT 10.9, INR 0.97, D-Dimer 1.13 H, Sodium 136, Potassium 3.9, Chloride 100, Carbon Dioxide 27, Anion Gap 12.9, BUN 14, Creatinine 1.10, Estimated Creat Clear 82, Estimated GFR 67, Est GFR ( Amer) 81, Glucose 106 H, Calcium 9.9, Magnesium 1.5 L, Total Bilirubin 1.0, AST 46, ALT 51, Alkaline Phosphatase 102, Troponin I < 0.01, NT-Pro-B Natriuret Pep 116, Total Protein 8.2 D, Albumin 5.3 H, Globulin 2.9, Albumin/Globulin Ratio 1.8, Procalcitonin 0.752, TSH 1.77, Free T4 Index 3.3 L, Thyroxine (T4) 10.2, T3 Uptake 32, HCV Ab VANESSA w/Rflx PCR Qn Negative 10/15/24 16:49: VBG pH 7.39, VBG pCO2 41.0, VBG pO2 32.0, VBG HCO3 24.4, VBG Total CO2 25.6, VBG O2 Saturation 61.3, VBG Base Excess -0.6, VBG Lactic Acid 2.1 H Orders (Tests/Meds): ED MEDICATIONS Discontinued Medications Generic Name Dose Route Start Last Admin Trade Name Freq PRN Reason Stop Dose Admin Acetaminophen 1,000 mg 10/15/24 16:47 10/15/24 17:00 Acetaminophen 1,000mg/100ml Vial IV 10/15/24 16:48 1,000 mg ONCE ONE Administration Sodium Chloride 1,000 mls @ 999 mls/hr 10/15/24 16:47 10/15/24 16:58 Sod Chlor 0.9% 1000ml Bag IV 10/15/24 17:47 999 mls/hr .Q1H1M ONE Administration Magnesium Sulfate 2 gm in 50 mls @ 50 mls/hr 10/15/24 17:26 10/15/24 17:42 Magnesium Sulfate 2gm/50ml Premix IV 10/15/24 18:25 50 mls/hr ONCE ONE Administration Iopamidol 70 ml 10/15/24 17:55 10/15/24 17:57 Iopamidol-370 (76%);100ml Bottle IV 10/15/24 17:56 70 ml ONCE ONE Administration Promethazine HCl 25 mg 10/15/24 16:21 10/15/24 16:25 Promethazine Hcl 25mg/Ml 1ml Vial IV 10/15/24 16:22 25 mg ONCE ONE Administration Sodium Chloride 25 ml 10/15/24 16:21 10/15/24 16:25 Sodium Chloride 0.9% 25ml Bag IV 10/15/24 16:22 25 ml ONCE ONE Administration Sodium Chloride 10 ml 10/15/24 17:55 10/15/24 17:56 Sodium Chloride 0.9% 10ml Syr (Rad Only) IV 10/15/24 17:56 10 ml ONCE ONE Administration Sodium Chloride 50 ml 10/15/24 17:55 10/15/24 17:56 0.9 % Sodium Chloride 50 Ml Vial IV 10/15/24 17:56 50 ml ONCE ONE Administration ORDERS Category Date Time Status CT angio chest PE protocol Stat Cat Scan 10/15/24 17:43 Completed Chest XR -- portable [XR chest portable] Stat Exams 10/15/24 16:51 Completed BNP [NT Pro Brain Natriuretic Pep.] Stat Lab 10/15/24 16:30 Completed CBC w/Auto Diff [Complete Blood Count Auto Diff] Stat Lab 10/15/24 16:30 Completed CMP [Comprehensive Metabolic Panel] Stat Lab 10/15/24 16:30 Completed D-Dimer Stat Lab 10/15/24 16:30 Completed HIV Combo Stat Lab 10/15/24 16:29 Completed Hepatitis C Ab Qual. W/ RFX Stat Lab 10/15/24 16:30 Completed INR [Prothrombin Time INR] Stat Lab 10/15/24 16:30 Completed Magnesium Stat Lab 10/15/24 16:30 Completed Procalcitonin Stat Lab 10/15/24 16:30 Completed Rapid PCR Covid and Flu A/B Stat Lab 10/15/24 16:28 Completed Thyroid Panel Stat Lab 10/15/24 16:30 Completed Trop I [Troponin I] Stat Lab 10/15/24 16:30 Completed VBG [Venous Blood Gas] Stat RT 10/15/24 16:49 Completed ECG Data Tracing #1: I reviewed this ECG and interpreted as documented below: (sinus tachycardia 99 bpm with OR interval 167, QRS 105, QTc 396. Rightward axis. No obvious acute ischemic change) HEART Score HEART Score: 4 Medical Decision Narrative: In summary patient is a 64-year-old male who presents to the emergency department for evaluation of weakness malaise myalgias cough but heart rate. Patient is normotensive 135/79 tachycardic at 111 with sinus tachycardia the bedside monitor breathing 17 times a minute satting at 96% on room air upon arrival, the fever of 99.9. Physical exam is remarkable for a well-nourished well-developed but unwell appearing 64-year-old male who is currently in no acute distress. Breath sounds clear and equal bilaterally to the bases without adventitious sounds, abdomen soft nontender no rebound no guarding no rigidity. No dependent edema noted.. Differential diagnosis includes pneumonia versus upper or lower respiratory tract infection versus ACS versus tachycardia dehydration versus PE etc. Initial workup will be conducted with hematologic labs twelve-lead EKG respiratory swabs CTA PE protocol. Initial interventions include crystalloid bolus Toradol Tylenol Zofran. Initial workup reviewed by me shows that his white count is 12.4 with absolute neutrophil count of 10.6 VBG shows a preserved pH VBG lactic acid 2.1, glucose 106 magnesium 1.5 with remainder of his hematologic labs nonactionable. Respiratory swabs are positive for influenza A. My informed interpretation of CTA PE protocol shows no evidence of thrombus or acute intrathoracic abnormality.. Upon repeat evaluation patient is tolerating p.o his heart rate has come down to 90 and he subjectively feels significantly better. Given this patient is appropriate for discharge with prescription for Tamiflu and Zofran and strict return precautions and recommendations for symptomatic and supportive care including Tylenol Motrin. I was consulted by the MARIA A, and we discussed the complexity of the problems being addressed. I approved the treatment and management plan for this patient's care in the Emergency Department, thus performing a substantive portion of the medical decision making. Asa Valencia MD Critical Care <LUIS CARLOS Ronquillo - Last Filed: 10/15/24 23:31> Critical Care Time Critical Care Time: Yes Attestation: On 10/15/24, the high probability of a clinically significant, sudden or life threatening deterioration of the following system(s) required my full and direct attention, intervention and personal management. The time I documented below is in addition to time spent performing reported procedures but includes the following listed in this critical care notation. Total Time Total Critical Care Time: 35
--- NOTE | 2024-10-15 16:24 | PC.NURSE ---
pt taken to room 2 at this time
[2024-10-15] MEDS: SODIUM CHLORIDE 0.9% 25ML BAG 25 ML IV (16:25)
[2024-10-15] MEDS: PROMETHAZINE HCL 25MG/ML 1ML VIAL 25 MG IV (16:25)
--- NOTE | 2024-10-15 16:25 | ECG_ITS ---
APPROVED REPORT Exam: Resting ECG HR:99 bpm ECG Measurements Heart Rate 99 AXES GA 167 P 50 QRSd 105 QRS 236 QT 340 T 83 QTc 396 Conclusion Sinus rhythm Electronically signed by : SIMEON BOLANOS, 10/16/2024 00:01:36
--- NOTE | 2024-10-15 16:51 | XR_ITS ---
PROCEDURE INFORMATION: Exam: XR Chest Exam date and time: 10/15/2024 4:57 PM Age: 64 years old Clinical indication: Other: Palpitations TECHNIQUE: Imaging protocol: Radiologic exam of the chest. Views: 1 view. COMPARISON: CR XR CHEST PORTABLE PICC PLAC 11/08/2022 5:37 PM FINDINGS: Lungs: Unremarkable. No consolidation. Pleural spaces: Unremarkable. No pleural effusion. No pneumothorax. Heart/Mediastinum: Unremarkable. No cardiomegaly. Bones/joints: Unremarkable. IMPRESSION: No acute findings.
[2024-10-15 16:56] LABS: Coronavirus 19, PCR Not Detected (NotDetected); Influenza B, PCR Not Detected (NotDetected)
[2024-10-15 16:57] LABS: Lactate Venous 2.1 mmol/L (0.4-2.0); VBG Base Excess -0.6 mmol/L (-2.4-2.3); VBG HCO3 24.4 mmol/L (23-30); VBG Oxygen Saturation 61.3 % (50-70); VBG PH 7.39 mmol/L (7.31-7.41); VBG Total CO2 25.6 mmol/L (23-27)
[2024-10-15] MEDS: 0.9 % SODIUM CHLORIDE 1000ML 1,000 ML 999 ML IV (16:58)
[2024-10-15 16:59] LABS: Basophils % 0.3 % (0.1-2.0); Eosinophils # 0.1 K/mm3 (0.0-0.4); Eosinophils % 0.6 % (0.1-12.0); Hematocrit 46.7 % (42.0-52.0); Hemoglobin 15.8 g/dL (14.1-18.0); Lymphocytes # 0.7 K/mm3 (0.7-4.5); Lymphocytes % 5.4 % (10-50); Mean Corpuscular HGB Conc 33.8 g/dL (31.8-35.4); Mean Corpuscular Hemoglobin 30.3 pg (27.0-31.2); Mean Corpuscular Volume 89.5 fl (80-94); Mean Platelet Volume 10.8 fl (7.4-10.4); Monocytes # 0.9 K/mm3 (0.1-1.0); Monocytes % 7.5 % (1.7-9.3); Neutrophils # 10.6 K/mm3 (1.8-7.8); Neutrophils % 85.8 % (37.0-80.0); Platelet Count 274 K/mm3 (142-424); Red Blood Count 5.22 M/mm3 (4.60-6.20); Red Cell Distribution Width 11.9 % (11.5-17.5); White Blood Count 12.4 K/mm3 (4.8-10.8)
[2024-10-15 17:00] LABS: Albumin Level 5.3 g/dl (3.5-5.0); Chloride 100 mmol/L (98-107)
[2024-10-15] MEDS: ACETAMINOPHEN 1,000MG/100ML VIAL 1000 MG IV (17:00)
--- NOTE | 2024-10-15 17:00 | PC.NURSE ---
portable xray at bedside
[2024-10-15 17:01] VITALS: BP 132/74; PULSE 101; RESP 16; O2SAT 96
[2024-10-15 17:01] LABS: Potassium 3.9 mmoL/L (3.5-5.1); Sodium 136 mmol/L (136-145)
[2024-10-15 17:03] LABS: Alanine Aminotransferase 51 U/L (12-78); Anion Gap 12.9 mEq/L (5-15); Aspartate Amino Transferase 46 U/L (17-59); Blood Urea Nitrogen 14 mg/dl (9-20); Carbon Dioxide 27 mmol/L (22.0-30.0); Creatinine Clearance Estimated 82 mL/min (50-200); Estimated Glomerular Filt Rate 67 ml/min (>60); GFR (African American) 81 ML/MIN (>60)
[2024-10-15 17:04] LABS: Albumin/Globulin Ratio 1.8 (1.1-1.8); Alkaline Phosphatase 102 U/L (38-126); Calcium 9.9 mg/dl (8.4-10.2); Globulin 2.9 g/dL (1.3-3.2); Glucose 106 mg/dl (74-100); Magnesium 1.5 mg/dl (1.6-2.3); Total Protein,Serum 8.2 g/dl (6.3-8.2)
[2024-10-15 17:13] LABS: NT Pro Brain Natriuretic Pep. 116 pg/mL (0-125)
[2024-10-15 17:14] LABS: INR 0.97 (0.9-1.1); Prothrombin Time 10.9 seconds (10.1-12.5)
[2024-10-15 17:16] LABS: Troponin I < 0.01 ng/ml (0.00-0.034)
[2024-10-15 17:21] LABS: Free Thyroxine Index 3.3 ug/dL (5.93-13.13); T4 (Thyroxine) 10.2 ug/dl (5.53-11.0); Triiodothryronine (T3) Uptake 32 % (23.5-40.5)
[2024-10-15 17:30] VITALS: BP 131/72; PULSE 103; RESP 18; O2SAT 94
[2024-10-15 17:35] LABS: HIV Combo NEGATIVE (Negative)
[2024-10-15 17:35] LABS: Influenza A, PCR Detected (NotDetected)
[2024-10-15 17:36] LABS: Thyroid Stimulating Hormone 1.77 uIU/mL (0.465-4.68)
[2024-10-15 17:40] LABS: D-Dimer 1.13 ug/mL (0.0-0.5)
[2024-10-15] MEDS: MAGNESIUM SULFATE IN WATER 2 GM/50 ML PIGGYBACK IV (17:42)
[2024-10-15 17:43] LABS: Hepatitis C Ab Qual. W/ RFX NEGATIVE (Negative)
--- NOTE | 2024-10-15 17:43 | CT_ITS ---
PROCEDURE INFORMATION: Exam: CTA Chest With Contrast Exam date and time: 10/15/2024 5:51 PM Age: 64 years old Clinical indication: Other: Dyspnea tachycardia TECHNIQUE: Imaging protocol: Computed tomographic angiography of the chest with contrast. Exam focused on the arteries. 3D rendering (Not supervised by radiologist): MIP and/or 3D reconstructed images were created by the technologist. Radiation optimization: All CT scans at this facility use at least one of these dose optimization techniques: automated exposure control; mA and/or kV adjustment per patient size (includes targeted exams where dose is matched to clinical indication); or iterative reconstruction. Contrast material: ISO 370; Contrast volume: 70 ml; Contrast route: INTRAVENOUS (IV); COMPARISON: CT ANGIO CHEST PE PROTOCOL 10/15/2024 5:51 PM FINDINGS: Pulmonary arteries: Normal. No pulmonary emboli. Aorta: Unremarkable. No aortic aneurysm. No aortic dissection. Lungs: Mild bibasilar atelectasis. No airspace consolidation. No pulmonary nodules. Pleural spaces: Unremarkable. No pneumothorax. No pleural effusion. Heart: Unremarkable. No cardiomegaly. No pericardial effusion. Lymph nodes: Unremarkable. No enlarged lymph nodes. Bones/joints: Unremarkable. No acute fracture. Soft tissues: Unremarkable. IMPRESSION: 1. No acute findings. 2. Mild bibasilar atelectasis.
--- NOTE | 2024-10-15 17:50 | PC.NURSE ---
pt transported to radiology via stretcher
[2024-10-15] MEDS: SODIUM CHLORIDE 0.9% 10ML SYR (RAD ONLY) 10 ML IV (17:56)
[2024-10-15] MEDS: 0.9 % SODIUM CHLORIDE 50 ML VIAL IV (17:56)
[2024-10-15] MEDS: IOPAMIDOL-370 (76%);100ML BOTTLE 70 ML IV (17:57)
[2024-10-15 18:02] LABS: Procalcitonin 0.752 ng/mL (0.0-2.0)
[2024-10-15 19:00] VITALS: BP 113/57; RESP 18
[2024-10-15 19:10] VITALS: BP 113/57; PULSE 90; RESP 18; TEMP 37.2; O2SAT 96
[2024-10-15 20:58] LABS: Reflex Lactic Add Lactic Reflex
== END 2024-10-15 19:10 | disposition home or self-care (01) ==
PROVIDERS: Physician Assistant; Emergency Provider Emergency Medicine; PCP Internal Medicine Adolescent Medicine
DX: J09.X2 Influenza due to identified novel influenza A virus with other respiratory manifestations (principal)
CPT/HCPCS: 71045; 71275; 80053; 82803; 83735; 83880; 84145; 84436; 84443; 84479; 84484; 85025; 85378; 85610; 86803; 87389; 87636; 93005; 96361; 96365; 96375; 99285; J0131; J2550; J3475; J7030; Q9967